=== PATIENT | male | born 1930 | race Caucasian/White ===

== ENCOUNTER 2017-01-06 21:08 | Inpatient (IN) | payer OTHER ==
[2017-01-06 22:32] LABS: BASOPHIL 0.5 % (0-2.0); EOSINOPHIL 1.7 % (0-4.5); MCH 31.3 pg (25.7-33.7); MCHC 32.9 g/dl (32.0-35.9); MEAN CELL VOLUME 95.2 fl (80-96); MEAN PLT VOLUME 8.5 fl (7.5-11.1); NEUTROPHILS 78.9 % (42.8-82.8); PLATELET COUNT 125 K/MM3 (134-434); RDW 15.2 % (11.9-15.9); WHITE BLOOD COUNT 10.5 K/mm3 (4.0-10.0)
[2017-01-06 23:00] LABS: ALBUMIN 3.6 g/dl (3.4-5.0); CALCIUM 8.7 mg/dL (8.5-10.1); CREATININE 1.5 mg/dL (0.7-1.3); MAGNESIUM 2.2 mg/dL (1.8-2.4)
[2017-01-06 23:05] LABS: BILIRUBIN,TOTAL 0.7 mg/dL (0.2-1.0); TOT PROT 6.8 g/dl (6.4-8.2); TROPONIN I 0.13 ng/ml (0.00-0.05)
[2017-01-06 23:14] LABS: INR 1.3 (0.82-1.09); PROTHROMBIN TIME (PATIENT) 14.4 SEC (9.98-11.88)
[2017-01-06 23:16] LABS: ACTIVATED PTT 33.1 SECONDS (26.9-34.4)
[2017-01-06] MEDS ORDERED: FUROSEMIDE 40 MG/4 ML INJECTABLE VIAL IVPB ONE (23:24)
--- NOTE | 2017-01-07 00:14 | PDOC ---
History of Present Illness - General History Source: Patient, Family, Old Records Exam Limitations: No Limitations <Colin Roth - Last Filed: 01/07/17 01:18> - General History Source: Patient, Family (Daughter ), Old Records Exam Limitations: No Limitations - History of Present Illness Initial Comments: 01/07/17 00:31 The patient is a 87 year old male brought via EMS from [facility] and presenting with his daughter, with a significant past medical history of AFIB, chronic renal insufficiency, dementia, HLD, HTN and CHF, who presents to the emergency department with shortness of breath and bilateral lower extremity swelling. The daughter notes that the symptoms have worsened over the last couple of days. The daughter also notes that the patient is compliant with is medications. The patient denies chest pain, headache and dizziness. Denies fever, chills, nausea, vomit, diarrhea and constipation. Denies dysuria, frequency, urgency and hematuria. Allergies: None Past surgical history: Hernia repair Social history: No alcohol, tobacco or drug use reported PMD - Dr. Julia Smith <Quirino Murray - Last Filed: 01/07/17 01:31> - General Chief Complaint: Shortness of Breath Stated Complaint: RESPIRATORY DISTRESS Time Seen by Provider: 01/06/17 21:20 Past History - Past Medical History Cardiac Disorders: Yes (afib) CHF: Yes Dementia: Yes Diabetes: Yes (? STATES IN PREVIOUS RECORD) HTN: Yes Hypercholesterolemia: Yes - Surgical History Appendectomy: Yes - Immunization History Immunization Up to Date: Yes - Psycho/Social/Smoking Cessation Hx Anxiety: Yes Suicidal Ideation: No Smoking History: Never smoked Have you smoked in the past 12 months: No Information on smoking cessation initiated: No Hx Alcohol Use: No Drug/Substance Use Hx: No Substance Use Type: None Hx Substance Use Treatment: No <Colin Roth - Last Filed: 01/07/17 01:18> <Quirino Murray - Last Filed: 01/07/17 01:31> - Past Medical History Allergies/Adverse Reactions: Allergies Allergy/AdvReac Type Severity Reaction Status Date / Time No Known Allergies Allergy Verified 01/06/17 21:25 Home Medications: Ambulatory Orders Apixaban [Eliquis] 2.5 mg PO BID 06/04/16 Atorvastatin Ca [Lipitor] 10 mg PO DAILY 06/04/16 Digoxin [Lanoxin -] 0.125 mg PO DAILY 06/04/16 Furosemide [Lasix -] 40 mg PO ASDIR 06/04/16 Furosemide [Lasix -] 80 mg PO ASDIR 06/04/16 Metoprolol Succinate [Toprol Xl -] 25 mg PO DAILY 06/04/16 Sertraline HCl [Zoloft -] 50 mg PO DAILY 06/04/16 Acetaminophen [Tylenol .Regular Strength -] 650 mg PO Q4H PRN #0 tablet Apixaban [Eliquis -] 2.5 mg PO BID tablet 06/07/16 Atorvastatin Ca [Lipitor] 10 mg PO HS tablet 06/07/16 Donepezil HCl [Aricept -] 5 mg PO DAILY tablet 06/07/16 Metoprolol Tartrate [Lopressor -] 25 mg PO BID tablet 06/07/16 Quetiapine Fumarate [Seroquel -] 12.5 mg PO DAILY tablet 06/07/16 Review of Systems - Review of Systems Able to Perform ROS?: Yes Comments:: 01/07/17 00:31 GENERAL/CONSTITUTIONAL: No fever or chills. No weakness. HEAD, EYES, EARS, NOSE AND THROAT: No change in vision. No ear pain or discharge. No sore throat. CARDIOVASCULAR: +Shortness of breath. No chest pain RESPIRATORY: No cough, wheezing, or hemoptysis. GASTROINTESTINAL: No nausea, vomiting, diarrhea or constipation. GENITOURINARY: No dysuria, frequency, or change in urination. MUSCULOSKELETAL: No joint or muscle swelling or pain. No neck or back pain. SKIN: No rash EXTREMITIES: +Bilateral lower extremity swelling. NEUROLOGIC: No headache, vertigo, loss of consciousness, or change in strength/ sensation. ENDOCRINE: No increased thirst. No abnormal weight change HEMATOLOGIC/LYMPHATIC: No anemia, easy bleeding, or history of blood clots. ALLERGIC/IMMUNOLOGIC: No hives or skin allergy. <Quirino Murray - Last Filed: 01/07/17 01:31> *Physical Exam - Vital Signs Last Vital Signs Temp Pulse Resp BP Pulse Ox 98.5 F 74 22 145/74 94 L 01/06/17 21:20 01/06/17 21:20 01/06/17 21:20 01/06/17 21:20 01/06/17 21:20 <Colin Roth - Last Filed: 01/07/17 01:18> - Vital Signs Last Vital Signs Temp Pulse Resp BP Pulse Ox 98.5 F 74 22 145/74 94 L 01/06/17 21:20 01/06/17 21:20 01/06/17 21:20 01/06/17 21:20 01/06/17 21:20 - Physical Exam Comments: 01/07/17 00:32 GENERAL: +Obese. Awake, alert, and fully oriented, in no acute distress HEAD: No signs of trauma, normocephalic, atraumatic EYES: PERRLA, EOMI, sclera anicteric, conjunctiva clear ENT: Auricles normal inspection, hearing grossly normal, nares patent, oropharynx clear without exudates. Moist mucosa NECK: Normal ROM, supple, no lymphadenopathy, JVD, or masses LUNGS: +Faint expiratory wheezing. No distress, speaks full sentences HEART: Regular rate and rhythm, normal S1 and S2, no murmurs, rubs or gallops, peripheral pulses normal and equal bilaterally. ABDOMEN: Soft, nontender, normoactive bowel sounds. No guarding, no rebound. No masses EXTREMITIES: 2+ peripheral edema bilaterally. Normal inspection, Normal range of motion. No clubbing or cyanosis. NEUROLOGICAL: Cranial nerves II through XII grossly intact. Normal speech, no focal sensorimotor deficits SKIN: Warm, Dry, normal turgor, no rashes or lesions noted. <Quirino Murray - Last Filed: 01/07/17 01:31> Heart Score/ECG Review #1 ECG reviewed & interpreted by me at: 01:20 01/07/17 01:17 atrial fibrillation 76, low voltage QRS, no std/anastacio, T wave flat II, III, aVF, aVL, QTC 434 msec <Colin Roth - Last Filed: 01/07/17 01:18> ED Treatment Course - LABORATORY CBC & Chemistry Diagram: 01/06/17 22:23 01/06/17 22:23 - ADDITIONAL ORDERS Additional order review: Laboratory Results 01/06/17 01/06/17 22:23 22:23 INR 1.30 H PTT (Actin FS) 33.1 Sodium 139 Potassium 4.3 Chloride 107 Carbon Dioxide 22 Anion Gap 10 BUN 37 H D Creatinine 1.5 H D Creat Clearance w eGFR 44.48 Random Glucose 107 H D Calcium 8.7 Magnesium 2.2 Total Bilirubin 0.7 D AST 29 D ALT 35 D Alkaline Phosphatase 173 H D Creatine Kinase 139 Troponin I 0.13 H D B-Natriuretic Peptide 71702.28 H Total Protein 6.8 Albumin 3.6 01/06/17 22:23 RBC 3.48 L MCV 95.2 MCHC 32.9 RDW 15.2 MPV 8.5 Neutrophils % 78.9 Lymphocytes % 8.2 D Monocytes % 10.7 H Eosinophils % 1.7 Basophils % 0.5 - RADIOLOGY Radiology Studies Ordered: Category Date Time Status CHEST X-RAY PORTABLE* [RAD] Stat Radiology 01/06/17 22:00 Completed DUPLEX VASCUL US-2LEGS [US] Stat Ultrasound 01/06/17 22:38 Ordered <Colin Roth - Last Filed: 01/07/17 01:18> - LABORATORY CBC & Chemistry Diagram: 01/06/17 22:23 01/06/17 22:23 - ADDITIONAL ORDERS Additional order review: Laboratory Results 01/06/17 01/06/17 22:23 22:23 INR 1.30 H PTT (Actin FS) 33.1 Sodium 139 Potassium 4.3 Chloride 107 Carbon Dioxide 22 Anion Gap 10 BUN 37 H D Creatinine 1.5 H D Creat Clearance w eGFR 44.48 Random Glucose 107 H D Calcium 8.7 Magnesium 2.2 Total Bilirubin 0.7 D AST 29 D ALT 35 D Alkaline Phosphatase 173 H D Creatine Kinase 139 Troponin I 0.13 H D B-Natriuretic Peptide 58275.28 H Total Protein 6.8 Albumin 3.6 01/06/17 22:23 RBC 3.48 L MCV 95.2 MCHC 32.9 RDW 15.2 MPV 8.5 Neutrophils % 78.9 Lymphocytes % 8.2 D Monocytes % 10.7 H Eosinophils % 1.7 Basophils % 0.5 - RADIOLOGY Radiograph Interpretation: 01/07/17 00:33 Chest X-Ray Reviewed by: Dr. Rajeev Mcneal Impression: Cardiomegaly and bilateral lower lobe consolidation. Bilatera lower extremities doppler Reviewed by: Dr. Franck Keys Impression: No DVT. <Quirino Murray - Last Filed: 01/07/17 01:31> Medical Decision Making - Medical Decision Making 01/07/17 00:05 A portion of this note was documented by scribe services under my direction. I have reviewed the details of the note, within reason, and agree with the documentation with the following case summary and management plan written by me. Patient treated in the ED. Nursing notes are reviewed and incorporated into the medical decision-making. Vital signs reviewed. Peripheral IV access obtained by the nurse, laboratory studies are drawn and sent, reviewed and interpreted by myself. Vital Signs Temp Pulse Resp BP Pulse Ox 98.5 F 74 22 145/74 94 L 01/06/17 21:20 01/06/17 21:20 01/06/17 21:20 01/06/17 21:20 01/06/17 21:20 87-year-old male with past medical history of dementia, hypertension, Atrial fibrillation on Eliquis, congestive heart failure, hypertension, hyperlipidemia , on digoxin, chronic renal insufficiency sent in from [facility] for increasing lower extremity edema and shortness of breath. The patient and the patient's daughter reports that the symptoms haven't worsened in the last several days. He reports adherence to his medications. Denies chest pain. He had noted increasing dyspnea on exertion and dyspnea. Patient was sent to the immersed department for further evaluation. Workup demonstrates findings likely consistent with congestive heart failure exacerbation. Patient is noted to have a chest x-ray with cardiomegaly and bilateral lower lobe consolidations. Blood work demonstrates an elevated BNP and a mildly elevated troponin, which is likely elevated in the setting of congestive heart failure. Patient has not endorsed chest pain. We'll need to give IV Lasix and admit the patient to the hospital for further evaluation. Dr. Smith was paged and awaiting response. 01/07/17 01:18 CBC, BMP 01/06/17 22:23 01/06/17 22:23 CMP Sodium 139 mmol/L (136-145) 01/06/17 22:23 Potassium 4.3 mmol/L (3.5-5.1) 01/06/17 22:23 Chloride 107 mmol/L (98-107) 01/06/17 22:23 Carbon Dioxide 22 mmol/L (21-32) 01/06/17 22:23 Anion Gap 10 (8-16) 01/06/17 22:23 BUN 37 mg/dL (7-18) H D 01/06/17 22:23 Creatinine 1.5 mg/dL (0.7-1.3) H D 01/06/17 22:23 Creat Clearance w eGFR 44.48 (>60) 01/06/17 22:23 Random Glucose 107 mg/dL (74-106) H D 01/06/17 22:23 Calcium 8.7 mg/dL (8.5-10.1) 01/06/17 22:23 Magnesium 2.2 mg/dL (1.8-2.4) 01/06/17 22:23 Total Bilirubin 0.7 mg/dL (0.2-1.0) D 01/06/17 22:23 AST 29 U/L (15-37) D 01/06/17 22:23 ALT 35 U/L (12-78) D 01/06/17 22:23 Alkaline Phosphatase 173 U/L (45-117) H D 01/06/17 22:23 Creatine Kinase 139 IU/L (39-308) 01/06/17 22:23 Troponin I 0.13 ng/ml (0.00-0.05) H D 01/06/17 22:23 B-Natriuretic Peptide 83522.28 pg/ml (5-450) H 01/06/17 22:23 Total Protein 6.8 g/dl (6.4-8.2) 01/06/17 22:23 Albumin 3.6 g/dl (3.4-5.0) 01/06/17 22:[address] Smith. He accepts patient to telemetry admission. Aspirin ordered. Case discussed in detail with admitting physician including history, physical exam and ancillary studies. Admitting physician has assumed care for the patient, will follow all pending diagnostics and will complete the evaluation and treatment. <Colin Roth - Last Filed: 01/07/17 01:18> - Medical Decision Making 01/07/17 00:33 Dr. Julia Smith was called regarding the patient at 11:32pm, 11:59pm and 12:25am Dr. Smith was consulted regarding the patient at 12:38am [phone] <Quirino Murray - Last Filed: 02/16/17 01:31> *DC/Admit/Observation/Transfer - Discharge Dispostion Admit: Yes <Colin Roth - Last Filed: 01/07/17 01:18> - Attestations Scribe Attestion: 01/07/17 00:32 Documentation prepared by Quirino Murray, acting as medical detailist for Colin Roth MD <Quirino Murray - Last Filed: 01/07/17 01:31> Diagnosis at time of Disposition: CHF (congestive heart failure) Qualifiers: Congestive heart failure type: unspecified congestive heart failure type Congestive heart failure chronicity: acute on chronic Qualified Code(s): I50.9 - Heart failure, unspecified - Discharge Dispostion Condition at time of disposition: Fair - Referrals Referrals: Julia Smith MD [Primary Care Provider] -
[2017-01-07] MEDS ORDERED: morphine CARPU-JECT 4 MG/1 ML DISP.SYRIN IVPUSH ONE (01:09)
[2017-01-07] MEDS ORDERED: FAMOTIDINE 20 MG/50 ML IVPB 50 ML IVPB ONE ×2 (01:09)
[2017-01-07] MEDS ORDERED: morphine CARPU-JECT 4 MG/1 ML DISP.SYRIN ONE (01:09)
[2017-01-07] MEDS ORDERED: ASPIRIN 81 MG CHEWABLE TABLETS PO ONE (01:19)
[2017-01-07] MEDS ORDERED: FUROSEMIDE 40 MG/4 ML INJECTABLE VIAL ONE (01:32)
[2017-01-07] MEDS ORDERED: ASPIRIN 81 MG CHEWABLE TABLETS ONE (02:22)
[2017-01-07] MEDS ORDERED: LORAZEPAM CARPU-JECT 2 MG/ML DISP.SYRIN IVPUSH ONE (03:05)
[2017-01-07] MEDS ORDERED: LORAZEPAM CARPU-JECT 2 MG/ML DISP.SYRIN ONE (03:07)
[2017-01-07] MEDS ORDERED: ACETAMINOPHEN 325 MG TABLET (FP) PO PRN (06:15)
[2017-01-07 08:57] LABS: BASOPHIL 0.8 % (0-2.0); EOSINOPHIL 1.8 % (0-4.5); MCH 30.8 pg (25.7-33.7); MCHC 32.4 g/dl (32.0-35.9); MEAN PLT VOLUME 8.4 fl (7.5-11.1); NEUTROPHILS 80.2 % (42.8-82.8); PLATELET COUNT 107 K/MM3 (134-434); WHITE BLOOD COUNT 10.5 K/mm3 (4.0-10.0)
[2017-01-07 09:25] LABS: CALCIUM 8.6 mg/dL (8.5-10.1); CREATININE 1.6 mg/dL (0.7-1.3)
[2017-01-07 09:31] LABS: TROPONIN I 0.16 ng/ml (0.00-0.05)
[2017-01-07 09:37] LABS: DIGOXIN LEVEL 0.3634 ng/ml (0.8-2.0); THYROID STIMULATING HORMONE 3.95 uIU/ml (0.358-3.74)
[2017-01-07] MEDS: METOPROLOL TARTRATE 25 MG TABLET (FP) PO SCH ×2 (12:00→22:24)
[2017-01-07] MEDS: QUEtiapine FUMARATE 25 MG TABLET (FP) PO SCH (12:00)
[2017-01-07] MEDS: SERTRALINE HCL 50 MG TABLET (FP) PO SCH (12:00)
[2017-01-07] MEDS: APIXABAN 2.5 MG TABLET PO SCH ×2 (12:00→22:24)
[2017-01-07] MEDS: DONEPEZIL HCL 5 MG TABLET (FP) PO SCH (12:00)
[2017-01-07] MEDS: DIGOXIN 0.125 MG TABLET (FP) PO SCH (12:00)
--- NOTE | 2017-01-07 13:18 | HP ---
Admitting History and Physical - Primary Care Physician PCP: Julia Smith - Admission Chief Complaint: leg edema and SOB History of Present Illness: The patient is a 87 year old male brought via EMS from [facility] and presenting with his daughter, with a significant past medical history of AFIB, chronic renal insufficiency, dementia, HLD, HTN and CHF, who presents to the emergency department with shortness of breath and bilateral lower extremity swelling. The daughter notes that the symptoms have worsened over the last couple of days. The daughter also notes that the patient is compliant with is medications. The patient denies chest pain, headache and dizziness. Denies fever, chills, nausea, vomit, diarrhea and constipation. Denies dysuria, frequency, urgency and hematuria. 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 Cardiovascular: Yes: AFIB (on eliquis), HTN, Hyperlipdemia, Murmur Pulmonary: Yes: COPD Renal/: Yes: Renal Inusuff (BUN/CR 30/1.7 in 01/06) Endocrine: Yes: Diabetes Mellitus - Past Surgical History Past Surgical History: Yes: Appendectomy, Hernia Repair (for incarceration in 2014) - Smoking History Smoking history: Never smoked Have you smoked in the past 12 months: No - Alcohol/Substance Use Hx Alcohol Use: No History of Substance Use: reports: None - Social History 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 - Allergies Allergies/Adverse Reactions: Allergies Allergy/AdvReac Type Severity Reaction Status Date / Time No Known Allergies Allergy Verified 01/06/17 21:25 - Home Medications Home Medications: Ambulatory Orders Apixaban [Eliquis] 2.5 mg PO BID 06/04/16 Atorvastatin Ca [Lipitor] 10 mg PO DAILY 06/04/16 Digoxin [Lanoxin -] 0.125 mg PO DAILY 06/04/16 Furosemide [Lasix -] 40 mg PO ASDIR 06/04/16 Furosemide [Lasix -] 80 mg PO ASDIR 06/04/16 Metoprolol Succinate [Toprol Xl -] 25 mg PO DAILY 06/04/16 Sertraline HCl [Zoloft -] 50 mg PO DAILY 06/04/16 Acetaminophen [Tylenol .Regular Strength -] 650 mg PO Q4H PRN #0 tablet Apixaban [Eliquis -] 2.5 mg PO BID tablet 06/07/16 Atorvastatin Ca [Lipitor] 10 mg PO HS tablet 06/07/16 Donepezil HCl [Aricept -] 5 mg PO DAILY tablet 06/07/16 Metoprolol Tartrate [Lopressor -] 25 mg PO BID tablet 06/07/16 Quetiapine Fumarate [Seroquel -] 12.5 mg PO DAILY tablet 06/07/16 Review of Systems - Review of Systems Eyes: reports: No Symptoms HENT: reports: No Symptoms Neck: reports: No Symptoms Cardiovascular: reports: No Symptoms Respiratory: reports: No Symptoms Physical Examination Vital Signs: Vital Signs Temperature 98.1 F 01/07/17 07:45 Pulse Rate 74 01/07/17 07:45 Respiratory Rate 18 01/07/17 07:45 Blood Pressure 144/89 01/07/17 07:45 O2 Sat by Pulse Oximetry (%) 97 01/07/17 07:45 Constitutional: Yes: Calm Cardiovascular: Yes: Pulse Irregular, S1, S2 Respiratory: Yes: Diminished (at bases), On Nasal O2 Gastrointestinal: Yes: Normal Bowel Sounds, Soft Edema: Yes Neurological: Yes: Alert, Oriented (to name) Labs: CBC, BMP 01/07/17 08:53 01/07/17 08:53 Imaging - Results Chest X-ray: Report Reviewed Cat Scan: Report Reviewed (bilateral pleural effsuion, vascular congestion) Problem List - Problems (1) (HFpEF) heart failure with preserved ejection fraction Assessment/Plan: echo iv lasix cardio eval daily weights monitor lytes check dig level BB Code(s): I50.9 - HEART FAILURE, UNSPECIFIED (2) A-fib Assessment/Plan: eliquis rate control Code(s): I48.91 - UNSPECIFIED ATRIAL FIBRILLATION (3) HLD (hyperlipidemia) Assessment/Plan: statin Code(s): E78.5 - HYPERLIPIDEMIA, UNSPECIFIED (4) HTN (hypertension) Assessment/Plan: bb Code(s): I10 - ESSENTIAL (PRIMARY) HYPERTENSION (5) Renal insufficiency Assessment/Plan: base line cr 1.4-1.6 Code(s): N28.9 - DISORDER OF KIDNEY AND URETER, UNSPECIFIED (6) Dementia Assessment/Plan: aricept seroquel Code(s): F03.90 - UNSPECIFIED DEMENTIA WITHOUT BEHAVIORAL DISTURBANCE
--- NOTE | 2017-01-07 13:27 | CON.CARD ---
Consult Consult Specialty:: Cardiology Referred by:: Dr. Smith Reason for Consultation:: Atrial fibrillation, CHF - History of Present Illness Chief Complaint: SOB, edema History of Present Illness: 87 yo male with dementia, chronic afib, CKD, HTN, and hyperlipidemia, who presented to ED from [facility] with reported dyspnea and leg edema per daughter's report over the past several days. However, the patient denies any symptoms but is not a reliable historian. Chest CT demonstrated large bilateral pleural effusions, diffuse pulmonary vascular congestion, and small pericardial effusions. ECG demonstrated atrial fibrillation with poor R wave progression. BNP 13,175 with Trops 0.13 -> 0.16. Started on IV furosemide in ED. 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 Cardio/Vascular: Yes: AFIB (on Eliquis), HTN, Hyperlipdemia, Murmur Pulmonary: Yes: COPD Renal/: Yes: Renal Inusuff (BUN/CR 30/1.7 in 01/06) Endocrine: Yes: Diabetes Mellitus - Past Surgical History Past Surgical History: Yes: Appendectomy, Hernia Repair (for incarceration in 2014) - Alcohol/Substance Use Hx Alcohol Use: No History of Substance Use: reports: None - Smoking History Smoking history: Never smoked Have you smoked in the past 12 months: No - Social History Usual Living Arrangement: With Spouse (but children live upstairs) 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 - Allergies Allergies/Adverse Reactions: Allergies Allergy/AdvReac Type Severity Reaction Status Date / Time No Known Allergies Allergy Verified 01/06/17 21:25 - Home Medications Home Medications: Ambulatory Orders Apixaban [Eliquis] 2.5 mg PO BID 06/04/16 Atorvastatin Ca [Lipitor] 10 mg PO DAILY 06/04/16 Digoxin [Lanoxin -] 0.125 mg PO DAILY 06/04/16 Furosemide [Lasix -] 40 mg PO ASDIR 06/04/16 Furosemide [Lasix -] 80 mg PO ASDIR 06/04/16 Metoprolol Succinate [Toprol Xl -] 25 mg PO DAILY 06/04/16 Sertraline HCl [Zoloft -] 50 mg PO DAILY 06/04/16 Acetaminophen [Tylenol .Regular Strength -] 650 mg PO Q4H PRN #0 tablet Apixaban [Eliquis -] 2.5 mg PO BID tablet 06/07/16 Atorvastatin Ca [Lipitor] 10 mg PO HS tablet 06/07/16 Donepezil HCl [Aricept -] 5 mg PO DAILY tablet 06/07/16 Metoprolol Tartrate [Lopressor -] 25 mg PO BID tablet 06/07/16 Quetiapine Fumarate [Seroquel -] 12.5 mg PO DAILY tablet 06/07/16 Family Disease History - Family Disease History Family History: Unable to Obtain (due to dementia) Review of Systems Unable to obtain ROS, reason: Limited due to dementia - Review of Systems Cardiovascular: denies: Chest Pain, Shortness of Breath Vital Signs: Vital Signs Temperature 98.1 F 01/07/17 07:45 Pulse Rate 74 01/07/17 07:45 Respiratory Rate 18 01/07/17 07:45 Blood Pressure 144/89 01/07/17 07:45 O2 Sat by Pulse Oximetry (%) 97 01/07/17 07:45 Constitutional: Yes: No Distress Eyes: Yes: Conjunctiva Clear, EOM Intact HENT: Yes: Atraumatic, Normocephalic Respiratory: Yes: Diminished (at bases bilaterally) Gastrointestinal: Yes: Normal Bowel Sounds, Soft. No: Tenderness Cardiovascular: Yes: Pulse Irregular JVD: Yes Carotid Bruit: No Heart Sounds: Yes: S1, S2 Murmur: No: Systolic Murmur Edema: Yes Edema: LLE: 1+, RLE: 1+ Peripheral Pulses WNL: Yes - Other Data Labs, Other Data: CBC, BMP 01/07/17 08:53 01/07/17 08:53 INR, PTT INR 1.30 (0.82-1.09) H 01/06/17 22:23 Troponin, BNP 01/07/17 08:53 Troponin I 0.16 H Troponin, BNP 01/07/17 08:53 Troponin I 0.16 H Echo: Report Reviewed (01/07/17: Normal LV size and systolic function. Mild conc LVH. Mod LAE. Mild MR. Severe TR. Pulm HTN with PASP 50-60 mmHg. Mild AR. Mild CA. Small pericardial effusion of no hemodynamic significance.), Image Reviewed Imaging - Results Cat Scan: Report Reviewed (01/07/[address]: Diffuse pulmonary vascular congestion with large bilateral pleural effusions and atelectatic changes in both lower lobes) Assessment/Plan 87 yo male with dementia, chronic afib, CKD, HTN, and hyperlipidemia, who is being admitted with acute diastolic CHF. Chest CT demonstrated large bilateral pleural effusions, diffuse pulmonary vascular congestion, and small pericardial effusions. ECG demonstrated atrial fibrillation with poor R wave progression. BNP 13,175 Trops 0.13 -> 0.16, which is likely due to CHF Echocardiogram today demonstrates normal LV size and systolic function, mild LVH , mod LAE, mild MR, mild AR, severe TR with RVSP 50-60 mmHg, mild CA, and small pericardial effusion of no hemodynamic significance. RECS: Admit to telemetry Continue furosemide 40 mg IV bid for diuresis Monitor lytes and renal function with diuresis Continue metoprolol tartrate 25 mg po bid and digoxin for afib rate control Continue Eliquis for afib thrombembolic prophylaxis Will follow. Call with questions. Further recs as per primary team
[2017-01-07] MEDS: FUROSEMIDE 40 MG/4 ML INJECTABLE VIAL IVPUSH SCH (13:36)
--- NOTE | 2017-01-07 16:03 | EKG ---
Test Reason : Blood Pressure : / mmHG Vent. Rate : 067 BPM Atrial Rate : 241 BPM P-R Int : 000 ms QRS Dur : 094 ms QT Int : 422 ms P-R-T Axes : 000 064 229 degrees QTc Int : 445 ms ATRIAL FIBRILLATION LOW VOLTAGE QRS INCOMPLETE RIGHT BUNDLE BRANCH BLOCK CANNOT RULE OUT ANTERIOR INFARCT , AGE UNDETERMINED ABNORMAL ECG WHEN COMPARED WITH ECG OF 05-JUN-2016 08:43, NONSPECIFIC T WAVE ABNORMALITY NOW EVIDENT IN INFERIOR LEADS Confirmed by STEVEN PEREZ MD ([id number]) on 01/07/2017 4:03:01 PM Referred By: ERIC FLETCHER Confirmed By:STEVEN PEREZ MD
--- NOTE | 2017-01-07 16:06 | EKG ---
Test Reason : Blood Pressure : / mmHG Vent. Rate : 076 BPM Atrial Rate : 060 BPM P-R Int : 000 ms QRS Dur : 086 ms QT Int : 386 ms P-R-T Axes : 000 049 046 degrees QTc Int : 434 ms POOR DATA QUALITY, INTERPRETATION MAY BE ADVERSELY AFFECTED ATRIAL FIBRILLATION LOW VOLTAGE QRS CANNOT RULE OUT ANTERIOR INFARCT , AGE UNDETERMINED ABNORMAL ECG WHEN COMPARED WITH ECG OF 05-JUN-2016 08:43, NONSPECIFIC T WAVE ABNORMALITY NOW EVIDENT IN INFERIOR LEADS NONSPECIFIC T WAVE ABNORMALITY NOW EVIDENT IN LATERAL LEADS Confirmed by STEVEN PEREZ MD ([id number]) on 01/07/2017 4:06:09 PM Referred By: Confirmed By:STEVEN PEREZ MD
[2017-01-07 18:46] VITALS: BMI 31.7
[2017-01-07] MEDS: ATORVASTATIN CA 10 MG TABLET (FP) PO SCH (22:24)
[2017-01-08] MEDS: FUROSEMIDE 40 MG/4 ML INJECTABLE VIAL IVPUSH SCH ×2 (05:58→15:16)
[2017-01-08 08:23] LABS: BASOPHIL 0.5 % (0-2.0); EOSINOPHIL 1.6 % (0-4.5); MCH 31.3 pg (25.7-33.7); MCHC 33.3 g/dl (32.0-35.9); MEAN CELL VOLUME 93.9 fl (80-96); MEAN PLT VOLUME 8.5 fl (7.5-11.1); NEUTROPHILS 85.1 % (42.8-82.8); PLATELET COUNT 112 K/MM3 (134-434); RDW 14.6 % (11.9-15.9); WHITE BLOOD COUNT 9.6 K/mm3 (4.0-10.0)
--- NOTE | 2017-01-08 08:35 | PN ---
Progress Note, Physician - Current Medication List Current Medications: Active Medications Acetaminophen (Tylenol -) 650 mg PO Q4H PRN PRN Reason: FEVER OR PAIN Last Admin: 01/07/17 15:53 Dose: 650 mg Apixaban (Eliquis -) 2.5 mg PO BID [facility] Last Admin: 01/07/17 22:24 Dose: 2.5 mg Atorvastatin Calcium (Lipitor -) 10 mg PO HS [facility] Last Admin: 01/07/17 22:24 Dose: 10 mg Digoxin (Lanoxin -) 0.125 mg PO DAILY [facility] Last Admin: 01/07/17 12:00 Dose: 0.125 mg Donepezil HCl (Aricept -) 5 mg PO DAILY [facility] Last Admin: 01/07/17 12:00 Dose: 5 mg Furosemide (Lasix Injection -) 40 mg IVPUSH BID@0600,1400 [facility] Last Admin: 01/08/17 05:58 Dose: 40 mg Metoprolol Tartrate (Lopressor -) 25 mg PO BID [facility] Last Admin: 01/07/17 22:24 Dose: 25 mg Quetiapine Fumarate (Seroquel -) 12.5 mg PO DAILY [facility] Last Admin: 01/07/17 12:00 Dose: 12.5 mg Sertraline HCl (Zoloft -) 50 mg PO DAILY [facility] Last Admin: 01/07/17 12:00 Dose: 50 mg - Objective Vital Signs: Vital Signs Temperature 97.8 F 01/08/17 02:23 Pulse Rate 71 01/08/17 05:59 Respiratory Rate 20 01/08/17 05:59 Blood Pressure 173/92 01/08/17 05:59 O2 Sat by Pulse Oximetry (%) 95 01/07/17 21:00 Cardiovascular: Yes: Murmur, S1, S2 Respiratory: Yes: Diminished, Rales Gastrointestinal: Yes: Normal Bowel Sounds, Soft Labs: INR, PTT INR 1.30 (0.82-1.09) H 01/06/17 22:23 Assessment/Plan - Problems (1) (HFpEF) heart failure with preserved ejection fraction Assessment/Plan: echo iv lasix cardio eval daily weights monitor lytes check dig level BB Code(s): I50.9 - HEART FAILURE, UNSPECIFIED (2) A-fib Assessment/Plan: eliquis rate control Code(s): I48.91 - UNSPECIFIED ATRIAL FIBRILLATION (3) HLD (hyperlipidemia) Assessment/Plan: statin Code(s): E78.5 - HYPERLIPIDEMIA, UNSPECIFIED (4) HTN (hypertension) Assessment/Plan: bb Code(s): I10 - ESSENTIAL (PRIMARY) HYPERTENSION (5) Renal insufficiency Assessment/Plan: base line cr 1.4-1.6 Code(s): N28.9 - DISORDER OF KIDNEY AND URETER, UNSPECIFIED (6) Dementia Assessment/Plan: aricept seroquel Code(s): F03.90 - UNSPECIFIED DEMENTIA WITHOUT BEHAVIORAL DISTURBANCE
[2017-01-08 08:37] LABS: FERRITIN 86.463 ng/ml (16.4-293.9); FREE T4 1.27 ng/dl (0.76-1.16)
[2017-01-08 08:41] LABS: ALBUMIN 3.5 g/dl (3.4-5.0)
[2017-01-08 08:55] LABS: BILIRUBIN,TOTAL 0.8 mg/dL (0.2-1.0); CALCIUM 8.5 mg/dL (8.5-10.1); CREATININE 1.7 mg/dL (0.7-1.3); DIGOXIN LEVEL 0.497 ng/ml (0.8-2.0); THYROID STIMULATING HORMONE 1.58 uIU/ml (0.358-3.74); TOT PROT 6.7 g/dl (6.4-8.2)
[2017-01-08 11:12] LABS: URINE APPEARANCE CLEAR; URINE BILIRUBIN NEGATIVE (NEGATIVE); URINE COLOR COLORLESS; URINE GLUCOSE (UA) NEGATIVE (NEGATIVE); URINE KETONE NEGATIVE (NEGATIVE); URINE LEUK ESTERASE NEGATIVE (NEGATIVE); URINE NITRITE NEGATIVE (NEGATIVE); URINE PROTEIN NEGATIVE (NEGATIVE); URINE UROBILINOGEN NEGATIVE E.U./dl (0.2-1.0)
[2017-01-08 11:20] LABS: URINE BLOOD 3+ (NEGATIVE)
[2017-01-08] MEDS: METOPROLOL TARTRATE 25 MG TABLET (FP) PO SCH ×2 (11:37→21:32)
[2017-01-08] MEDS: DIGOXIN 0.125 MG TABLET (FP) PO SCH (11:37)
[2017-01-08] MEDS: APIXABAN 2.5 MG TABLET PO SCH ×2 (11:37→21:32)
[2017-01-08 11:38] LABS: URINE RBC 488 /hpf (0-3)
[2017-01-08] MEDS: QUEtiapine FUMARATE 25 MG TABLET (FP) PO SCH (11:38)
[2017-01-08] MEDS: SERTRALINE HCL 50 MG TABLET (FP) PO SCH (11:38)
[2017-01-08] MEDS: DONEPEZIL HCL 5 MG TABLET (FP) PO SCH (11:38)
--- NOTE | 2017-01-08 16:01 | PN ---
Progress Note, Physician History of Present Illness: No new complaints - Current Medication List Current Medications: Active Medications Acetaminophen (Tylenol -) 650 mg PO Q4H PRN PRN Reason: FEVER OR PAIN Last Admin: 01/07/17 15:53 Dose: 650 mg Apixaban (Eliquis -) 2.5 mg PO BID [facility] Last Admin: 01/08/17 11:37 Dose: 2.5 mg Atorvastatin Calcium (Lipitor -) 10 mg PO HS [facility] Last Admin: 01/07/17 22:24 Dose: 10 mg Digoxin (Lanoxin -) 0.125 mg PO DAILY [facility] Last Admin: 01/08/17 11:37 Dose: 0.125 mg Donepezil HCl (Aricept -) 5 mg PO DAILY [facility] Last Admin: 01/08/17 11:38 Dose: 5 mg Furosemide (Lasix Injection -) 40 mg IVPUSH BID@0600,1400 [facility] Last Admin: 01/08/17 15:16 Dose: 40 mg Metoprolol Tartrate (Lopressor -) 25 mg PO BID [facility] Last Admin: 01/08/17 11:37 Dose: 25 mg Quetiapine Fumarate (Seroquel -) 12.5 mg PO DAILY [facility] Last Admin: 01/08/17 11:38 Dose: 12.5 mg Sertraline HCl (Zoloft -) 50 mg PO DAILY [facility] Last Admin: 01/08/17 11:38 Dose: 50 mg - Objective Vital Signs: Vital Signs Temperature 97.8 F 01/08/17 02:23 Pulse Rate 66 01/08/17 14:00 Respiratory Rate 20 01/08/17 14:00 Blood Pressure 124/61 01/08/17 14:00 O2 Sat by Pulse Oximetry (%) 94 L 01/08/17 08:00 Constitutional: Yes: No Distress (but in [place]) Eyes: Yes: Conjunctiva Clear HENT: Yes: Atraumatic Neck: Yes: Supple Cardiovascular: Yes: Pulse Irregular Respiratory: Yes: CTA Bilaterally (anteriorly) Gastrointestinal: Yes: Normal Bowel Sounds, Soft Edema: Yes (trace) Peripheral Pulses WNL: Yes Neurological: Yes: Confusion Labs: CBC, BMP 01/08/17 06:10 01/08/17 06:10 INR, PTT INR 1.30 (0.82-1.09) H 01/06/17 22:23 - ....Imaging Other: Other (tele -. controlled rate) Assessment/Plan 7 yo male with dementia, chronic afib, CKD, HTN, and hyperlipidemia, who is being admitted with acute diastolic CHF. Chest CT demonstrated large bilateral pleural effusions, diffuse pulmonary vascular congestion, and small pericardial effusions. ECG demonstrated atrial fibrillation with poor R wave progression. BNP 13,175 Trops 0.13 -> 0.16, which is likely due to CHF Echocardiogram 01/07/17 demonstrates normal LV size and systolic function, mild LVH, mod LAE, mild MR, mild AR, severe TR with RVSP 50-60 mmHg, mild LA, and small pericardial effusion of no hemodynamic significance. Diuresing well RECS: Admit to telemetry Continue furosemide 40 mg IV bid for diuresis -. CXR in AM -. switch to Po as indicated Monitor lytes and renal function Continue metoprolol tartrate 25 mg po bid and digoxin for afib rate control Continue Eliquis for afib thrombembolic prophylaxis Further recs as per primary team
[2017-01-08] MEDS: ATORVASTATIN CA 10 MG TABLET (FP) PO SCH (21:32)
[2017-01-09] MEDS: FUROSEMIDE 40 MG/4 ML INJECTABLE VIAL IVPUSH SCH (06:39)
[2017-01-09 08:07] LABS: SERUM IRON 30 ug/dL (38-169); TOTAL IRON BINDING CAPACITY 287 ug/dL (250-450); UIBC 257 ug/dL (111-343)
[2017-01-09] MEDS: SERTRALINE HCL 50 MG TABLET (FP) PO SCH (08:59)
[2017-01-09] MEDS: DONEPEZIL HCL 5 MG TABLET (FP) PO SCH (08:59)
[2017-01-09] MEDS: METOPROLOL TARTRATE 25 MG TABLET (FP) PO SCH (08:59)
[2017-01-09] MEDS: APIXABAN 2.5 MG TABLET PO SCH ×2 (08:59→21:32)
[2017-01-09] MEDS: DIGOXIN 0.125 MG TABLET (FP) PO SCH (08:59)
[2017-01-09] MEDS: QUEtiapine FUMARATE 25 MG TABLET (FP) PO SCH (09:00)
--- NOTE | 2017-01-09 10:12 | PN ---
Progress Note, Physician - Current Medication List Current Medications: Active Medications Acetaminophen (Tylenol -) 650 mg PO Q4H PRN PRN Reason: FEVER OR PAIN Last Admin: 01/07/17 15:53 Dose: 650 mg Apixaban (Eliquis -) 2.5 mg PO BID [facility] Last Admin: 01/09/17 08:59 Dose: 2.5 mg Atorvastatin Calcium (Lipitor -) 10 mg PO HS [facility] Last Admin: 01/08/17 21:32 Dose: 10 mg Digoxin (Lanoxin -) 0.125 mg PO DAILY [facility] Last Admin: 01/09/17 08:59 Dose: 0.125 mg Donepezil HCl (Aricept -) 5 mg PO DAILY [facility] Last Admin: 01/09/17 08:59 Dose: 5 mg Furosemide (Lasix Injection -) 40 mg IVPUSH BID@0600,1400 [facility] Last Admin: 01/09/17 06:39 Dose: 40 mg Metoprolol Tartrate (Lopressor -) 25 mg PO BID [facility] Last Admin: 01/09/17 08:59 Dose: 25 mg Quetiapine Fumarate (Seroquel -) 12.5 mg PO DAILY [facility] Last Admin: 01/09/17 09:00 Dose: 12.5 mg Sertraline HCl (Zoloft -) 50 mg PO DAILY [facility] Last Admin: 01/09/17 08:59 Dose: 50 mg - Objective Vital Signs: Vital Signs Temperature 98.4 F 01/09/17 08:37 Pulse Rate 78 01/09/17 08:59 Respiratory Rate 18 01/09/17 08:37 Blood Pressure 172/102 01/09/17 08:37 O2 Sat by Pulse Oximetry (%) 96 01/08/17 21:00 Cardiovascular: Yes: WNL Respiratory: Yes: WNL Gastrointestinal: Yes: WNL Labs: CBC, BMP 01/08/17 06:10 01/08/17 06:10 INR, PTT INR 1.30 (0.82-1.09) H 01/06/17 22:23 Problem List - Problems (1) CHF (congestive heart failure) Code(s): I50.9 - HEART FAILURE, UNSPECIFIED Qualifiers: Congestive heart failure type: unspecified congestive heart failure type Congestive heart failure chronicity: acute on chronic Qualified Code(s): I50.9 - Heart failure, unspecified (2) (HFpEF) heart failure with preserved ejection fraction Code(s): I50.9 - HEART FAILURE, UNSPECIFIED (3) A-fib Code(s): I48.91 - UNSPECIFIED ATRIAL FIBRILLATION (4) Acute kidney injury Code(s): N17.9 - ACUTE KIDNEY FAILURE, UNSPECIFIED (5) HTN (hypertension) Code(s): I10 - ESSENTIAL (PRIMARY) HYPERTENSION Assessment/Plan (1) (HFpEF) heart failure with preserved ejection fraction Assessment/Plan: echo iv lasix cardio eval daily weights monitor lytes check dig level -> 0.5 BB Code(s): I50.9 - HEART FAILURE, UNSPECIFIED (2) A-fib Assessment/Plan: eliquis rate control -> hr 78 Code(s): I48.91 - UNSPECIFIED ATRIAL FIBRILLATION (3) HLD (hyperlipidemia) Assessment/Plan: statin Code(s): E78.5 - HYPERLIPIDEMIA, UNSPECIFIED (4) HTN (hypertension) Assessment/Plan: bb - norvasc 5 Code(s): I10 - ESSENTIAL (PRIMARY) HYPERTENSION (5) Renal insufficiency Assessment/Plan: base line cr 1.4-1.6 monitor Code(s): N28.9 - DISORDER OF KIDNEY AND URETER, UNSPECIFIED (6) Dementia Assessment/Plan: aricept seroquel Code(s): F03.90 - UNSPECIFIED DEMENTIA WITHOUT BEHAVIORAL DISTURBANCE DISCHARGE PLANNING F/U BP [employer] FM
[2017-01-09] MEDS ORDERED: amLODIPine BESYLATE 5 MG TABLET (FP) PO SCH (10:15)
--- NOTE | 2017-01-09 13:35 | PN ---
Progress Note, Physician History of Present Illness: No events overnight. - Current Medication List Current Medications: Active Medications Acetaminophen (Tylenol -) 650 mg PO Q4H PRN PRN Reason: FEVER OR PAIN Last Admin: 01/07/17 15:53 Dose: 650 mg Amlodipine Besylate (Norvasc -) 10 mg PO DAILY [facility] Apixaban (Eliquis -) 2.5 mg PO BID [facility] Last Admin: 01/09/17 08:59 Dose: 2.5 mg Atorvastatin Calcium (Lipitor -) 10 mg PO HS [facility] Last Admin: 01/08/17 21:32 Dose: 10 mg Carvedilol (Coreg -) 6.25 mg PO BID [facility] Digoxin (Lanoxin -) 0.125 mg PO DAILY [facility] Last Admin: 01/09/17 08:59 Dose: 0.125 mg Donepezil HCl (Aricept -) 5 mg PO DAILY [facility] Last Admin: 01/09/17 08:59 Dose: 5 mg Furosemide (Lasix -) 40 mg PO DAILY [facility] Quetiapine Fumarate (Seroquel -) 12.5 mg PO DAILY [facility] Last Admin: 01/09/17 09:00 Dose: 12.5 mg Sertraline HCl (Zoloft -) 50 mg PO DAILY [facility] Last Admin: 01/09/17 08:59 Dose: 50 mg - Objective Vital Signs: Vital Signs Temperature 98.4 F 01/09/17 08:37 Pulse Rate 78 01/09/17 08:59 Respiratory Rate 18 01/09/17 08:37 Blood Pressure 172/102 01/09/17 08:37 O2 Sat by Pulse Oximetry (%) 96 01/08/17 21:00 Constitutional: Yes: No Distress HENT: Yes: Atraumatic, Normocephalic Cardiovascular: Yes: Pulse Irregular. No: JVD Respiratory: Yes: CTA Bilaterally Gastrointestinal: Yes: Normal Bowel Sounds, Soft. No: Tenderness Edema: No Labs: CBC, BMP 01/08/17 06:10 01/08/17 06:10 INR, PTT INR 1.30 (0.82-1.09) H 01/06/17 22:23 Assessment/Plan 87 yo male with dementia, chronic afib, CKD, HTN, and hyperlipidemia, who is being admitted with acute diastolic CHF. Chest CT demonstrated large bilateral pleural effusions, diffuse pulmonary vascular congestion, and small pericardial effusions. ECG demonstrated atrial fibrillation with poor R wave progression. BNP 13,175 Trops 0.13 -> 0.16, which is likely due to CHF Echocardiogram 01/07/17 demonstrated normal LV size and systolic function, mild LVH, mod LAE, mild MR, mild AR, severe TR with RVSP 50-60 mmHg, mild RI, and small pericardial effusion of no hemodynamic significance. Patient appears euvolemic currently. Cr rising with continued IV diuretics. RECS: Will change furosemide to 40 mg po daily. Monitor lytes and renal function Will change metoprolol to carvedilol 6.25 mg po bid for better BP control, and will continue digoxin for afib rate control Continue Eliquis for afib thrombembolic prophylaxis Will follow. Call with questions. Further recs and discharge planning as per primary team
[2017-01-09] MEDS: ATORVASTATIN CA 10 MG TABLET (FP) PO SCH (21:31)
[2017-01-09] MEDS: CARVEDILOL 6.25 MG TABLET (FP) PO SCH (21:32)
[2017-01-10 08:25] LABS: BASOPHIL 0.6 % (0-2.0); EOSINOPHIL 2.4 % (0-4.5); MCH 30.8 pg (25.7-33.7); MCHC 32.6 g/dl (32.0-35.9); MEAN CELL VOLUME 94.4 fl (80-96); MEAN PLT VOLUME 8.5 fl (7.5-11.1); NEUTROPHILS 79.7 % (42.8-82.8); PLATELET COUNT 114 K/MM3 (134-434); RDW 14.6 % (11.9-15.9); WHITE BLOOD COUNT 10.1 K/mm3 (4.0-10.0)
--- NOTE | 2017-01-10 08:33 | PN ---
Progress Note, Physician - Current Medication List Current Medications: Active Medications Acetaminophen (Tylenol -) 650 mg PO Q4H PRN PRN Reason: FEVER OR PAIN Last Admin: 01/07/17 15:53 Dose: 650 mg Amlodipine Besylate (Norvasc -) 10 mg PO DAILY [facility] Apixaban (Eliquis -) 2.5 mg PO BID [facility] Last Admin: 01/09/17 21:32 Dose: 2.5 mg Atorvastatin Calcium (Lipitor -) 10 mg PO HS [facility] Last Admin: 01/09/17 21:31 Dose: 10 mg Carvedilol (Coreg -) 6.25 mg PO BID [facility] Last Admin: 01/09/17 21:32 Dose: 6.25 mg Digoxin (Lanoxin -) 0.125 mg PO DAILY [facility] Last Admin: 01/09/17 08:59 Dose: 0.125 mg Donepezil HCl (Aricept -) 5 mg PO DAILY [facility] Last Admin: 01/09/17 08:59 Dose: 5 mg Furosemide (Lasix -) 40 mg PO DAILY [facility] Quetiapine Fumarate (Seroquel -) 12.5 mg PO DAILY [facility] Last Admin: 01/09/17 09:00 Dose: 12.5 mg Sertraline HCl (Zoloft -) 50 mg PO DAILY [facility] Last Admin: 01/09/17 08:59 Dose: 50 mg - Objective Vital Signs: Vital Signs Temperature 97.9 F 01/10/17 02:00 Pulse Rate 64 01/10/17 06:00 Respiratory Rate 20 01/10/17 06:00 Blood Pressure 154/70 01/10/17 06:00 O2 Sat by Pulse Oximetry (%) 98 01/09/17 21:00 Cardiovascular: Yes: WNL Respiratory: Yes: WNL Gastrointestinal: Yes: WNL Edema: No Labs: CBC, BMP 01/10/17 05:45 INR, PTT INR 1.30 (0.82-1.09) H 01/06/17 22:23 Problem List - Problems (1) CHF (congestive heart failure) Code(s): I50.9 - HEART FAILURE, UNSPECIFIED Qualifiers: Congestive heart failure type: unspecified congestive heart failure type Congestive heart failure chronicity: acute on chronic Qualified Code(s ): I50.9 - Heart failure, unspecified (2) (HFpEF) heart failure with preserved ejection fraction Code(s): I50.9 - HEART FAILURE, UNSPECIFIED (3) A-fib Code(s): I48.91 - UNSPECIFIED ATRIAL FIBRILLATION (4) Acute kidney injury Code(s): N17.9 - ACUTE KIDNEY FAILURE, UNSPECIFIED (5) HTN (hypertension) Code(s): I10 - ESSENTIAL (PRIMARY) HYPERTENSION Assessment/Plan (1) (HFpEF) heart failure with preserved ejection fraction Assessment/Plan: repeat cxr worse iv lasix -> po cardio eval noted daily weights monitor lytes check dig level -> 0.5 BB Code(s): I50.9 - HEART FAILURE, UNSPECIFIED (2) A-fib Assessment/Plan: eliquis rate control Code(s): I48.91 - UNSPECIFIED ATRIAL FIBRILLATION (3) HLD (hyperlipidemia) Assessment/Plan: statin Code(s): E78.5 - HYPERLIPIDEMIA, UNSPECIFIED (4) HTN (hypertension) Assessment/Plan: bb norvasc 5 Code(s): I10 - ESSENTIAL (PRIMARY) HYPERTENSION (5) Renal insufficiency Assessment/Plan: base line cr 1.4-1.6 getting worse monitor on po lasix Code(s): N28.9 - DISORDER OF KIDNEY AND URETER, UNSPECIFIED (6) Dementia Assessment/Plan: aricept seroquel Code(s): F03.90 - UNSPECIFIED DEMENTIA WITHOUT BEHAVIORAL DISTURBANCE 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
[2017-01-10 09:08] LABS: ALBUMIN 3.2 g/dl (3.4-5.0); BILIRUBIN,TOTAL 0.7 mg/dL (0.2-1.0); CALCIUM 8.8 mg/dL (8.5-10.1); CREATININE 1.5 mg/dL (0.7-1.3); TOT PROT 6.4 g/dl (6.4-8.2)
--- NOTE | 2017-01-10 09:20 | PN ---
Progress Note, Physician History of Present Illness: No events overnight. - Current Medication List Current Medications: Active Medications Acetaminophen (Tylenol -) 650 mg PO Q4H PRN PRN Reason: FEVER OR PAIN Last Admin: 01/07/17 15:53 Dose: 650 mg Amlodipine Besylate (Norvasc -) 10 mg PO DAILY [facility] Apixaban (Eliquis -) 2.5 mg PO BID [facility] Last Admin: 01/09/17 21:32 Dose: 2.5 mg Atorvastatin Calcium (Lipitor -) 10 mg PO HS [facility] Last Admin: 01/09/17 21:31 Dose: 10 mg Carvedilol (Coreg -) 6.25 mg PO BID [facility] Last Admin: 01/09/17 21:32 Dose: 6.25 mg Digoxin (Lanoxin -) 0.125 mg PO DAILY [facility] Last Admin: 01/09/17 08:59 Dose: 0.125 mg Donepezil HCl (Aricept -) 5 mg PO DAILY [facility] Last Admin: 01/09/17 08:59 Dose: 5 mg Furosemide (Lasix -) 40 mg PO DAILY [facility] Quetiapine Fumarate (Seroquel -) 12.5 mg PO DAILY [facility] Last Admin: 01/09/17 09:00 Dose: 12.5 mg Sertraline HCl (Zoloft -) 50 mg PO DAILY [facility] Last Admin: 01/09/17 08:59 Dose: 50 mg - Objective Vital Signs: Vital Signs Temperature 97.9 F 01/10/17 02:00 Pulse Rate 64 01/10/17 06:00 Respiratory Rate 20 01/10/17 06:00 Blood Pressure 154/70 01/10/17 06:00 O2 Sat by Pulse Oximetry (%) 98 01/09/17 21:00 Constitutional: Yes: No Distress HENT: Yes: Atraumatic, Normocephalic Cardiovascular: Yes: Pulse Irregular. No: JVD Respiratory: Yes: CTA Bilaterally Gastrointestinal: Yes: Normal Bowel Sounds, Soft. No: Tenderness Edema: No Labs: CBC, BMP 01/10/17 05:45 01/10/17 05:45 INR, PTT INR 1.30 (0.82-1.09) H 01/06/17 22:23 Assessment/Plan 87 yo male with dementia, chronic afib, CKD, HTN, and hyperlipidemia, who is being admitted with acute diastolic CHF. Chest CT demonstrated large bilateral pleural effusions, diffuse pulmonary vascular congestion, and small pericardial effusions. ECG demonstrated atrial fibrillation with poor R wave progression. BNP 13,175 Trops 0.13 -> 0.16, which is likely due to CHF Echocardiogram 01/07/17 demonstrated normal LV size and systolic function, mild LVH, mod LAE, mild MR, mild AR, severe TR with RVSP 50-60 mmHg, mild VT, and small pericardial effusion of no hemodynamic significance. Patient appears euvolemic currently. RECS: Today patient to start furosemide to 40 mg po daily. Monitor lytes and renal function Continue carvedilol 6.25 mg po bid for better BP control, and will continue digoxin for afib rate control Continue Eliquis for afib thrombembolic prophylaxis Will follow. Call with questions. Further recs and discharge planning as per primary team
[2017-01-10] MEDS ORDERED: FUROSEMIDE 40 MG/4 ML INJECTABLE VIAL IVPUSH SCH (10:00)
[2017-01-10] MEDS: QUEtiapine FUMARATE 25 MG TABLET (FP) PO SCH (10:16)
[2017-01-10] MEDS: DIGOXIN 0.125 MG TABLET (FP) PO SCH (10:16)
[2017-01-10] MEDS: SERTRALINE HCL 50 MG TABLET (FP) PO SCH (10:16)
[2017-01-10] MEDS: CARVEDILOL 6.25 MG TABLET (FP) PO SCH ×2 (10:16→22:05)
[2017-01-10] MEDS: DONEPEZIL HCL 5 MG TABLET (FP) PO SCH (10:17)
[2017-01-10] MEDS: FUROSEMIDE 40 MG TABLET (FP) PO SCH (10:17)
[2017-01-10] MEDS: amLODIPine BESYLATE 10 MG TABLET (FP) PO SCH (10:17)
[2017-01-10] MEDS: APIXABAN 2.5 MG TABLET PO SCH ×2 (10:17→22:05)
[2017-01-10] MEDS: ATORVASTATIN CA 10 MG TABLET (FP) PO SCH (22:05)
[2017-01-11 07:26] LABS: BASOPHIL 0.7 % (0-2.0); EOSINOPHIL 3.3 % (0-4.5); MCHC 33.1 g/dl (32.0-35.9); MEAN CELL VOLUME 93.9 fl (80-96); MEAN PLT VOLUME 8.1 fl (7.5-11.1); NEUTROPHILS 77.5 % (42.8-82.8); PLATELET COUNT 129 K/MM3 (134-434); RDW 14.5 % (11.9-15.9)
[2017-01-11 07:50] LABS: ALBUMIN 3.3 g/dl (3.4-5.0); BILIRUBIN,TOTAL 0.8 mg/dL (0.2-1.0); CALCIUM 8.6 mg/dL (8.5-10.1); CREATININE 1.6 mg/dL (0.7-1.3); TOT PROT 6.4 g/dl (6.4-8.2)
--- NOTE | 2017-01-11 08:21 | DS ---
Physical Examination Vital Signs: Vital Signs Temperature 98.8 F 01/11/17 06:00 Pulse Rate 61 01/11/17 06:00 Respiratory Rate 18 01/11/17 06:00 Blood Pressure 126/67 01/11/17 06:00 O2 Sat by Pulse Oximetry (%) 96 01/10/17 21:00 Cardiovascular: Yes: Regular Rate and Rhythm Respiratory: Yes: Regular, CTA Bilaterally Gastrointestinal: Yes: Normal Bowel Sounds, Soft Labs: CBC, BMP 01/11/17 05:35 01/11/17 05:35 Discharge Summary Reason For Visit: CHF Current Active Problems CHF (congestive heart failure) (Acute) Dementia (Acute) Hospital Course: The patient is a 87 year old male brought via EMS from [facility] and presenting with his daughter, with a significant past medical history of AFIB, chronic renal insufficiency, dementia, HLD, HTN and CHF, who presents to the emergency department with shortness of breath and bilateral lower extremity swelling. The daughter notes that the symptoms have worsened over the last couple of days. The daughter also notes that the patient is compliant with is medications. The patient denies chest pain, headache and dizziness. Denies fever, chills, nausea, vomit, diarrhea and constipation. Denies dysuria, frequency, urgency and hematuria. Allergies: None Past surgical history: Hernia repair Social history: No alcohol, tobacco or drug use reported in ER he got lasix and morphine History Source: Medical Record Limitations to Obtaining History: Clinical Condition, Poor Historian - Past Medical History PATTERNMAKER SAMPLE: Yes: Dementia Cardiovascular: Yes: AFIB (on eliquis), HTN, Hyperlipdemia, Murmur Pulmonary: Yes: COPD Renal/: Yes: Renal Inusuff (BUN/CR 30/1.7 in 01/06) Endocrine: Yes: Diabetes Mellitus - Past Surgical History Past Surgical History: Yes: Appendectomy, Hernia Repair (for incarceration in 2014) (1) (HFpEF) heart failure with preserved ejection fraction Assessment/Plan: repeat cxr worse iv lasix -> po cardio eval noted daily weights monitor lytes check dig level -> 0.5 BB Code(s): I50.9 - HEART FAILURE, UNSPECIFIED (2) A-fib Assessment/Plan: eliquis rate control Code(s): I48.91 - UNSPECIFIED ATRIAL FIBRILLATION (3) HLD (hyperlipidemia) Assessment/Plan: statin Code(s): E78.5 - HYPERLIPIDEMIA, UNSPECIFIED (4) HTN (hypertension) Assessment/Plan: bb norvasc 5 Code(s): I10 - ESSENTIAL (PRIMARY) HYPERTENSION (5) Renal insufficiency Assessment/Plan: base line cr 1.4-1.6 getting worse monitor on po lasix Code(s): N28.9 - DISORDER OF KIDNEY AND URETER, UNSPECIFIED (6) Dementia Assessment/Plan: aricept seroquel Code(s): F03.90 - UNSPECIFIED DEMENTIA WITHOUT BEHAVIORAL DISTURBANCE DISCHARGE PLANNING Condition: Improved - Instructions Referrals: Julia Smith MD [Primary Care Provider] - Disposition: [facility] - Home Medications Comprehensive Discharge Medication List: Ambulatory Orders Digoxin [Lanoxin -] 0.125 mg PO DAILY 06/04/16 Acetaminophen [Tylenol .Regular Strength -] 650 mg PO Q4H PRN #0 tablet Apixaban [Eliquis -] 2.5 mg PO BID tablet 06/07/16 Donepezil HCl [Aricept -] 5 mg PO DAILY tablet 06/07/16 Amlodipine Besylate [Norvasc -] 10 mg PO DAILY tablet 01/11/17 Furosemide [Lasix -] 40 mg PO DAILY tablet 01/11/17
--- NOTE | 2017-01-11 09:55 | PN ---
Progress Note, Physician History of Present Illness: No events overnight. - Current Medication List Current Medications: Active Medications Acetaminophen (Tylenol -) 650 mg PO Q4H PRN PRN Reason: FEVER OR PAIN Last Admin: 01/07/17 15:53 Dose: 650 mg Amlodipine Besylate (Norvasc -) 10 mg PO DAILY [facility] Last Admin: 01/10/17 10:17 Dose: 10 mg Apixaban (Eliquis -) 2.5 mg PO BID [facility] Last Admin: 01/10/17 22:05 Dose: 2.5 mg Atorvastatin Calcium (Lipitor -) 10 mg PO HS [facility] Last Admin: 01/10/17 22:05 Dose: 10 mg Carvedilol (Coreg -) 6.25 mg PO BID [facility] Last Admin: 01/10/17 22:05 Dose: 6.25 mg Digoxin (Lanoxin -) 0.125 mg PO DAILY [facility] Last Admin: 01/10/17 10:16 Dose: 0.125 mg Donepezil HCl (Aricept -) 5 mg PO DAILY [facility] Last Admin: 01/10/17 10:17 Dose: 5 mg Furosemide (Lasix -) 40 mg PO DAILY [facility] Last Admin: 01/10/17 10:17 Dose: 40 mg Quetiapine Fumarate (Seroquel -) 12.5 mg PO DAILY [facility] Last Admin: 01/10/17 10:16 Dose: 12.5 mg Sertraline HCl (Zoloft -) 50 mg PO DAILY [facility] Last Admin: 01/10/17 10:16 Dose: 50 mg - Objective Vital Signs: Vital Signs Temperature 98.8 F 01/11/17 06:00 Pulse Rate 61 01/11/17 06:00 Respiratory Rate 18 01/11/17 06:00 Blood Pressure 126/67 01/11/17 06:00 O2 Sat by Pulse Oximetry (%) 96 01/10/17 21:00 Constitutional: Yes: No Distress Eyes: Yes: Conjunctiva Clear, EOM Intact HENT: Yes: Atraumatic, Normocephalic Cardiovascular: Yes: Pulse Irregular. No: JVD Respiratory: Yes: CTA Bilaterally Gastrointestinal: Yes: Normal Bowel Sounds, Soft. No: Tenderness Edema: No Labs: CBC, BMP 01/11/17 05:35 01/11/17 05:35 INR, PTT INR 1.30 (0.82-1.09) H 01/06/17 22:23 Assessment/Plan 87 yo male with dementia, chronic afib, CKD, HTN, and hyperlipidemia, who is being admitted with acute diastolic CHF. Chest CT demonstrated large bilateral pleural effusions, diffuse pulmonary vascular congestion, and small pericardial effusions. ECG demonstrated atrial fibrillation with poor R wave progression. BNP 13,175 Trops 0.13 -> 0.16, which is likely due to CHF Echocardiogram 01/07/17 demonstrated normal LV size and systolic function, mild LVH, mod LAE, mild MR, mild AR, severe TR with RVSP 50-60 mmHg, mild IA, and small pericardial effusion of no hemodynamic significance. Patient appears euvolemic currently. RECS: Continue carvedilol 6.25 mg po bid for better BP control, and will continue digoxin for afib rate control Continue furosemide 40 mg po daily. Continue Eliquis for afib thrombembolic prophylaxis. Will see prn. Please call with questions. Discharge planning as per primary team
[2017-01-11] MEDS: QUEtiapine FUMARATE 25 MG TABLET (FP) PO SCH (10:36)
[2017-01-11] MEDS: DIGOXIN 0.125 MG TABLET (FP) PO SCH (10:37)
[2017-01-11] MEDS: FUROSEMIDE 40 MG TABLET (FP) PO SCH (10:37)
[2017-01-11] MEDS: CARVEDILOL 6.25 MG TABLET (FP) PO SCH (10:37)
[2017-01-11] MEDS: SERTRALINE HCL 50 MG TABLET (FP) PO SCH (10:37)
[2017-01-11] MEDS: APIXABAN 2.5 MG TABLET PO SCH (10:37)
[2017-01-11] MEDS: DONEPEZIL HCL 5 MG TABLET (FP) PO SCH (10:37)
[2017-01-11] MEDS: amLODIPine BESYLATE 10 MG TABLET (FP) PO SCH (10:37)
[2017-01-11 14:41] VITALS: BP 117/66; PULSE 55; TEMP 98.6
== END 2017-01-11 16:45 | DRG 291 ==
LOC: JER 21:08 → JERBED 01-07 01:40 → J4W 01-07 15:40
PROVIDERS: ADMIT Family Medicine; ATTEND Family Medicine
DX: I13.0 Hypertensive heart and chronic kidney disease with heart failure and stage 1 through stage 4 chronic kidney disease, or unspecified chronic kidney disease (principal); I50.33 Acute on chronic diastolic (congestive) heart failure; N17.9 Acute kidney failure, unspecified; F03.90 Unspecified dementia, unspecified severity, without behavioral disturbance, psychotic disturbance, mood disturbance, and anxiety; E78.5 Hyperlipidemia, unspecified; E66.9 Obesity, unspecified; I48.91 Unspecified atrial fibrillation; Z79.01 Long term (current) use of anticoagulants; N18.9 Chronic kidney disease, unspecified; I48.2 Chronic atrial fibrillation; Z68.21 Body mass index [BMI] 21.0-21.9, adult
CPT/HCPCS: 36415; 71010-TC; 71250-TC; 80048; 80053; 80061; 80162; 81003; 81015; 82550; 82553; 82728; 83036; 83540; 83550; 83721; 83735; 83880; 84439; 84443; 84484; 85025; 85610; 85730; 87086; 93005; 93010; 93306-TC; 93970-TC; 97116-GP; 97161-GP; 99285-25

== ENCOUNTER 2019-02-22 16:35 | Observation (INO) | payer OTHER ==
[2019-02-22 16:47] VITALS: BMI 21.4
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
[2019-02-22] MEDS ORDERED: DIPHTH,PERTUSS(ACELL),TET 0.5 ML DISP.SYRIN IM ONE ×2 (17:38→17:44)
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
[2019-02-22 18:12] LABS: EOS % 1.5 % (0-4.5); HEMATOCRIT 33.9 % (35.4-49); HEMOGLOBIN 11.5 GM/dL (11.7-16.9); LYMPH % 4.9 % (8-40); MCH 32.6 pg (25.7-33.7); MEAN CELL VOLUME 95.8 fl (80-96); MEAN PLT VOLUME 8.4 fl (7.5-11.1); MONO % 7.5 % (3.8-10.2); NEUT % 85.1 % (42.8-82.8); PLATELET COUNT 161 K/MM3 (134-434); RBC 3.54 M/mm3 (4.00-5.60); RDW 14.6 % (11.9-15.9); WHITE BLOOD COUNT 9.5 K/mm3 (4.0-10.0)
[2019-02-22 18:44] LABS: ALBUMIN 3.6 g/dl (3.4-5.0); ALK PHOS 191 U/L (45-117); ANION GAP 10 MMOL/L (8-16); BILIRUBIN,TOTAL 0.3 mg/dL (0.2-1); BLOOD UREA NITROGEN 38 mg/dL (7-18); CALCIUM 8.8 mg/dL (8.5-10.1); CHLORIDE 97 mmol/L (98-107); CO2 26 mmol/L (21-32); CREATININE 1.7 mg/dL (0.55-1.3); GLUCOSE,RANDOM 127 mg/dL (74-106); POTASSIUM 3.3 mmol/L (3.5-5.1); SGOT/AST 22 U/L (15-37); SGPT/ALT 26 U/L (13-61); SODIUM 133 mmol/L (136-145); TOT PROT 7.1 g/dl (6.4-8.2)
[2019-02-22] MEDS ORDERED: ACETAMINOPHEN 325 MG TABLET (FP) PO PRN (19:08)
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
[2019-02-22] MEDS ORDERED: HALOPERIDOL LACTATE 2 MG/ML UNIT-DOSE CUPS PO PRN (22:12)
[2019-02-22] MEDS ORDERED: POTASSIUM CHLORIDE TABS 20 MEQ TABLET.ER (FP) PO ONE (22:14)
[2019-02-22] MEDS ORDERED: DOCUSATE SODIUM 100 MG CAPSULE (FP) PO ONE (22:14)
[2019-02-22] MEDS: POTASSIUM CHLORIDE TABS 20 MEQ TABLET.ER (FP) PO SCH (22:43)
[2019-02-22] MEDS: DOCUSATE SODIUM 100 MG CAPSULE (FP) PO SCH (22:43)
[2019-02-22] MEDS: MEMANTINE HCL 10 MG TABLET (FP) PO SCH (22:43)
[2019-02-22] MEDS: HALOPERIDOL 5 MG TABLET (FP) PO ONE ×2 (23:39→23:41)
[2019-02-23] MEDS: DOCUSATE SODIUM 100 MG CAPSULE (FP) PO SCH ×2 (05:30→15:09)
[2019-02-23 07:20] LABS: BASO % 0.6 % (0-2.0); EOS % 1.4 % (0-4.5); HEMATOCRIT 30.4 % (35.4-49); HEMOGLOBIN 10.5 GM/dL (11.7-16.9); LYMPH % 5.9 % (8-40); MCH 32.9 pg (25.7-33.7); MCHC 34.6 g/dl (32.0-35.9); MEAN CELL VOLUME 95.1 fl (80-96); MEAN PLT VOLUME 8.5 fl (7.5-11.1); MONO % 8.6 % (3.8-10.2); NEUT % 83.5 % (42.8-82.8); PLATELET COUNT 140 K/MM3 (134-434); RBC 3.19 M/mm3 (4.00-5.60); RDW 14.3 % (11.9-15.9); WHITE BLOOD COUNT 9.6 K/mm3 (4.0-10.0)
[2019-02-23 07:58] LABS: ANION GAP 9 MMOL/L (8-16); BLOOD UREA NITROGEN 34 mg/dL (7-18); CALCIUM 8.8 mg/dL (8.5-10.1); CHLORIDE 99 mmol/L (98-107); CO2 27 mmol/L (21-32); CREATININE 1.5 mg/dL (0.55-1.3); GLUCOSE,RANDOM 91 mg/dL (74-106); POTASSIUM 3.4 mmol/L (3.5-5.1); SODIUM 136 mmol/L (136-145)
[2019-02-23] MEDS ORDERED: METOLAZONE 2.5 MG TABLET (FP) PO SCH (09:30)
[2019-02-23] MEDS ORDERED: ALLOPURINOL 100 MG TABLET (FP) PO SCH (10:00)
[2019-02-23] MEDS ORDERED: FUROSEMIDE 40 MG TABLET (FP) PO SCH (10:00)
[2019-02-23] MEDS ORDERED: ASCORBIC ACID 500 MG TABLET (FP) PO SCH (10:00)
[2019-02-23] MEDS ORDERED: RANITIDINE HCL 150 MG TABLET (FP) PO SCH (10:00)
[2019-02-23] MEDS ORDERED: amLODIPine BESYLATE 10 MG TABLET (FP) PO SCH (10:00)
[2019-02-23] MEDS ORDERED: DIGOXIN 0.125 MG TABLET (FP) PO SCH (10:00)
[2019-02-23] MEDS ORDERED: CALCIUM 500MG/VIT-D 200 UNITS COMBO TABLET (FP) PO SCH (10:00)
[2019-02-23] MEDS ORDERED: CHOLECALCIFEROL (VITAMIN D3) 1,000 UNIT TABLET (FP) PO SCH (10:00)
[2019-02-23] MEDS ORDERED: ESCITALOPRAM OXALATE 10 MG TABLET (FP) PO SCH (10:00)
[2019-02-23] MEDS ORDERED: PT OWN MED DRAWER 7, Y5N ONE ×2 (10:03→14:45)
[2019-02-23] MEDS: POTASSIUM CHLORIDE TABS 20 MEQ TABLET.ER (FP) PO SCH (10:15)
[2019-02-23] MEDS: MEMANTINE HCL 10 MG TABLET (FP) PO SCH (10:17)
--- NOTE | 2019-02-23 11:48 | EKG ---
Test Reason : Blood Pressure : / mmHG Vent. Rate : 062 BPM Atrial Rate : 061 BPM P-R Int : 000 ms QRS Dur : 106 ms QT Int : 440 ms P-R-T Axes : 000 -31 014 degrees QTc Int : 446 ms ATRIAL FIBRILLATION LEFT AXIS DEVIATION LOW VOLTAGE QRS INCOMPLETE RIGHT BUNDLE BRANCH BLOCK POSSIBLE LATERAL INFARCT (CITED ON OR BEFORE 07-JAN-2017) ABNORMAL ECG Confirmed by ANA PEREZ, STEVEN ([id number]) on 02/23/2019 11:48:18 AM Referred By: Confirmed By:STEVEN PEREZ MD
[2019-02-23 13:58] VITALS: BP 121/59; PULSE 62; TEMP 97.8
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
== END 2019-02-23 17:32 ==
LOC: JER 16:35 → JERBED 18:36 → J5S 02-23 00:39
PROVIDERS: ADMIT Family Medicine; ATTEND Family Medicine
PROC: 0HQ1XZZ Repair Face Skin, External Approach (ICD-10-PCS; principal; 2019-02-22)
PROC: 0HQKXZZ Repair Right Lower Leg Skin, External Approach (ICD-10-PCS; 2019-02-22)
DX: S01.01XA Laceration without foreign body of scalp, initial encounter (principal); S01.111A Laceration without foreign body of right eyelid and periocular area, initial encounter; S81.011A Laceration without foreign body, right knee, initial encounter; S09.90XA Unspecified injury of head, initial encounter; Y04.8XXA Assault by other bodily force, initial encounter; W03.XXXA Other fall on same level due to collision with another person, initial encounter; Y93.89 Activity, other specified; Y92.122 Bedroom in nursing home as the place of occurrence of the external cause; R11.0 Nausea; E78.5 Hyperlipidemia, unspecified; I48.91 Unspecified atrial fibrillation; F03.90 Unspecified dementia, unspecified severity, without behavioral disturbance, psychotic disturbance, mood disturbance, and anxiety; R01.1 Cardiac murmur, unspecified; J44.9 Chronic obstructive pulmonary disease, unspecified; I50.9 Heart failure, unspecified; E11.9 Type 2 diabetes mellitus without complications; Z79.01 Long term (current) use of anticoagulants
CPT/HCPCS: 12002-25; 12011-25; 36415; 70450-TC; 71045-TC-FY; 80048; 80053; 85025; 90715; 93005; 93010; 99285-25; G0378

== ENCOUNTER 2020-01-25 13:56 | Inpatient (IN) | payer OTHER ==
--- NOTE | 2020-01-25 14:19 | PDOC ---
History of Present Illness - General Stated Complaint: Shortness of Breath Time Seen by Provider: 01/25/20 14:18 Past History - Past Medical History Allergies/Adverse Reactions: Allergies Allergy/AdvReac Type Severity Reaction Status Date / Time No Known Allergies Allergy Verified 01/06/17 21:25 Home Medications: Ambulatory Orders Digoxin [Lanoxin -] 0.125 mg PO DAILY 06/04/16 Acetaminophen [Tylenol .Regular Strength -] 650 mg PO Q4H PRN #0 tablet 06/07/16 Apixaban [Eliquis -] 2.5 mg PO BID tablet 06/07/16 Amlodipine Besylate [Norvasc -] 10 mg PO DAILY tablet 01/11/17 Allopurinol [Zyloprim -] 100 mg PO DAILY 02/22/19 Ascorbate Calcium [Vitamin C] 500 mg PO DAILY 02/22/19 Calcium Carbonate/Vitamin D3 [Oyster Shell 500-Vit D3 200 Tb] 1 each PO DAILY 02/22/19 Cholecalciferol (Vitamin D3) [Vitamin D3] 1,000 unit PO DAILY 02/22/19 Escitalopram Oxalate [Lexapro -] 10 mg PO DAILY 02/22/19 Furosemide [Lasix -] 80 mg PO DAILY 02/22/19 Memantine HCl [Namenda -] 10 mg PO BID 02/22/19 Metolazone [Zaroxolyn -] 2.5 mg PO DAILY 02/22/19 Multivitamin [One-Daily Multi-Vitamin] 1 each PO DAILY 02/22/19 Potassium Chloride 40 meq PO BID 02/22/19 Ranitidine [Zantac -] 300 mg PO DAILY 02/22/19 Cardiac Disorders: Yes (afib) COPD: No CHF: Yes Dementia: Yes Diabetes: Yes HTN: Yes Hypercholesterolemia: Yes - Surgical History Appendectomy: Yes - Immunization History Immunization Up to Date: Yes - Psycho Social/Smoking Cessation Hx Smoking History: Unknown if ever smoked Have you smoked in the past 12 months: No Hx Alcohol Use: No Drug/Substance Use Hx: No Substance Use Type: None Hx Substance Use Treatment: No ED Treatment Course - LABORATORY CBC & Chemistry Diagram: 01/25/20 14:50 01/25/20 14:50 Medical Decision Making - Medical Decision Making 01/25/20 14:56 HPI: 89yo Gibraltarian-speaking M hx Afib (on metoprolol ER 25 and eliquis), chronic renal insufficiency, dementia (baseline alert and oriented only to name, conversational but confused conversations repeating everything and not making sense often), HLD, HTN and CHF sent from [facility] for SOB and O2 desat to 84% on RA today, placed on NRB 15lpm with improvement to 100%. Per proxy Eneida, pt was never previously on O2, and was in [facility], until Wednesday 4 days ago. On Wednesday, E[facility] and pt was on O2 NC 2L continuously even while walking around, told due to SOB and desat. Denies cough, fever, hx lung problems, hx CAD, recent illness. Pt ambulates without assistance. Pt denies all sx. Pt does not know why he's in ED. Echo 01/07/2017 - normal LVEF Proxy - Eneida Jeffery [phone] PCP - Smitacarolyn ROS: unknown accuracy of answers due to baseline dementia, but denies all Constitutional: Negative for chills, fever, fatigue, diaphoresis. HENT: Negative for sore throat, rhinorrhea, congestion. Eyes: Negative for visual disturbance. Respiratory: Positive for SOB. Negative for cough, and wheezing. Cardiovascular: Negative for chest pain, palpitations, and leg swelling. Gastrointestinal: Negative for abdominal pain, blood in stool, constipation, diarrhea, nausea, and vomiting. Genitourinary: Negative for dysuria, flank pain, and hematuria. Musculoskeletal: Negative for myalgias, back pain, and neck pain. Skin: Negative for rash. Neurological: Negative for light-headedness, dizziness, vertigo, syncope, weakness, numbness and headaches. Psychiatric/Behavioral: Positive for dementia. Negative for behavioral problems. PE: Gen: Alert, NAD, comfortable-appearing, on O2 NRB 11lpm HEENT: PERRL, EOMI, MMM, NCAT. No conjunctival pallor. Sclera are non-icteric. Oropharynx is clear. Poor dentition. Grinds teeth loudly. CV: Irregularly irregular rate and rhythm. No murmurs, rubs, or gallops. PULM: Mild resp distress with mouth breathing, speaks in full sentences, no abdominal breathing. CTAB at apices, decreased BS b/l bases, no wheezes, rales, or rhonchi. ABD: soft, NT/ND, no rebound tenderness or guarding, no CVA tenderness. BACK: No TTP of c/t/l-spine. No step-offs or deformities. MSK: No bony deformities. 2+ pulses in all extremities. NEURO: AAOx1 (name only). Can speak in full sentences, follow commands, and answer some questions. PERRL. No gross CN deficits. 5/5 strength in all extremities. Sensation to light touch intact in all extremities. No pronator dri ft. No abnormal nystagmus. EXTREMITIES: No cyanosis. No clubbing. No edema. No calf tenderness. PSYCH: Normal mood, dementia. SKIN: Warm and dry. Normal capillary refill. No jaundice. + small 1cm skin tear to L dorsal hand with malodourous clear drainage, no blood or purulence, no erythema or swelling. MDM: 89yo Gibraltarian-speaking M hx Afib (on eliquis and metoprolol ER 25), chronic renal insufficiency, dementia (baseline alert and oriented only to name, conversational but confused conversations repeating everything and not making sense often), HLD, HTN and CHF sent from [facility] for SOB and O2 desat to 84% on RA today, placed on NRB 15lpm with improvement to 100%, and SOB and O2 requirement 2L NC since Wednesday without any prior O2 requirement. O2 sat 100% on NC 2L, HR 50s-60s with occasional drops into 30s/40s, normotensive, normal RR, afebrile, decreased breath sounds b/l at bases, dementia, small skin tear with malodourous clear drainage to L dorsal hand. Ddx: CHF exacerbation, Afib, arrhythmia, ACS/MN, PNA, UTI, wound infection, COPD, metabolic derangement, anemia -Monitor, pads placed -O2 2L NC -CBC,CMP,Coags,Mg,Phos,BNP,Cardiac profile,UA/UC,BCx,flu -EKG reviewed: Afib with slow ventricular response, 55bpm, QTc 407ms, IRBBB, no e/o acute ischemia -CXR reviewed: large heart, congestive changes, bibasilar pleural effusions with atelectasis and/or infiltrates -L hand culture -Zosyn for PNA -Consider glucagon if bradycardia continues and pt becomes hypotensive -Spoke with proxy Eneida: information in HPI -Dispo: Admit 01/25/20 16:01 POCUS showed global hypokinesis, approx EF 5%, small pericardial effusion without tamponade. Remains normotensive, O2 sat 100% on NC 2L, HR 50s with occasional drops into 40s, no change in mental status, no complaints. 01/25/20 16:42 Labs reviewed. Notable for K 5.6, BUN 39.1, Cr 2.0, Trop 0.27, BNP 18938. CBC,CMP WBC 7.4 K/mm3 (4.0-10.0) 01/25/20 14:50 RBC 3.63 M/mm3 (4.00-5.60) L 01/25/20 14:50 Hgb 11.5 GM/dL (11.7-16.9) L 01/25/20 14:50 Hct 35.6 % (35.4-49) D 01/25/20 14:50 MCV 97.9 fl (80-96) H 01/25/20 14:50 MCH 31.7 pg (25.7-33.7) 01/25/20 14:50 MCHC 32.4 g/dl (32.0-35.9) 01/25/20 14:50 RDW 17.3 % (11.9-15.9) H 01/25/20 14:50 Plt Count 123 K/MM3 (134-434) L 01/25/20 14:50 MPV 9.3 fl (7.5-11.1) 01/25/20 14:50 Absolute Neuts (auto) 5.7 K/mm3 (1.5-8.0) 01/25/20 14:50 Neutrophils % 76.8 % (42.8-82.8) 01/25/20 14:50 Lymphocytes % 7.6 % (8-40) L D 01/25/20 14:50 Monocytes % 10.7 % (3.8-10.2) H 01/25/20 14:50 Eosinophils % 3.7 % (0-4.5) D 01/25/20 14:50 Basophils % 1.2 % (0-2.0) 01/25/20 14:50 Nucleated RBC % 0 % (0-0) 01/25/20 14:50 Sodium 141 mmol/L (136-145) 01/25/20 14:50 Potassium 5.6 mmol/L (3.5-5.1) H 01/25/20 14:50 Chloride 112 mmol/L (98-107) H 01/25/20 14:50 Carbon Dioxide 24 mmol/L (21-32) 01/25/20 14:50 Anion Gap 6 MMOL/L (8-16) L 01/25/20 14:50 BUN 39.1 mg/dL (7-18) H 01/25/20 14:50 Creatinine 2.0 mg/dL (0.55-1.3) H 01/25/20 14:50 Est GFR (CKD-EPI)AfAm 33.54 01/25/20 14:50 Est GFR (CKD-EPI)NonAf 28.94 01/25/20 14:50 Random Glucose 76 mg/dL (74-106) 01/25/20 14:50 Calcium 8.8 mg/dL (8.5-10.1) 01/25/20 14:50 Phosphorus 3.7 mg/dL (2.5-4.9) 01/25/20 14:50 Magnesium 2.4 mg/dL (1.8-2.4) 01/25/20 14:50 Total Bilirubin 0.4 mg/dL (0.2-1) 01/25/20 14:50 AST 40 U/L (15-37) H 01/25/20 14:50 ALT 37 U/L (13-61) 01/25/20 14:50 Alkaline Phosphatase 199 U/L (45-117) H 01/25/20 14:50 Creatine Kinase 111 U/L (26-308) 01/25/20 14:50 Troponin I 0.27 ng/ml (0.00-0.05) H 01/25/20 14:50 B-Natriuretic Peptide 50996.9 pg/ml (5-450) H 01/25/20 14:50 Total Protein 7.0 g/dl (6.4-8.2) 01/25/20 14:50 Albumin 3.3 g/dl (3.4-5.0) L 01/25/20 14:50 -Lasix 40 -Aspirin 324 01/25/20 16:[address] Shahzad Gutierrez - will see pt. 01/25/20 17:11 -Urine and flu sent -Admit - microblog sent 01/25/20 17:51 UA negative. Flu negative. 01/25/20 18:02 Signed out to admitting team. Discharge - Discharge Information Problems reviewed: Yes Clinical Impression/Diagnosis: CHF (congestive heart failure), Pericardial effusion, Pleural effusion, Bradycardia, A-fib, Shortness of breath, Troponin level elevated Condition: Fair - Admission Yes - Follow up/Referral Referrals: Julia Smith MD [Primary Care Provider] - - Patient Discharge Instructions - Post Discharge Activity
[2020-01-25] MEDS ORDERED: PIPERACILLIN/TAZOB 3.375 GM 3.375 GM in DEXTROSE 5%-WATER - 50 ML IVPB ONE (14:50)
[2020-01-25] MEDS ORDERED: PIPERACILLIN/TAZOB 3.375 GM 3.375 GM/50 ML BAG IVPB ONE (15:42)
[2020-01-25 15:57] LABS: BASO % 1.2 % (0-2.0); EOS % 3.7 % (0-4.5); HEMATOCRIT 35.6 % (35.4-49); HEMOGLOBIN 11.5 GM/dL (11.7-16.9); LYMPH % 7.6 % (8-40); MCH 31.7 pg (25.7-33.7); MCHC 32.4 g/dl (32.0-35.9); MEAN CELL VOLUME 97.9 fl (80-96); MEAN PLT VOLUME 9.3 fl (7.5-11.1); MONO % 10.7 % (3.8-10.2); NEUT % 76.8 % (42.8-82.8); PLATELET COUNT 123 K/MM3 (134-434); RBC 3.63 M/mm3 (4.00-5.60); RDW 17.3 % (11.9-15.9); WHITE BLOOD COUNT 7.4 K/mm3 (4.0-10.0)
[2020-01-25 16:21] LABS: INR 1.1 (0.83-1.09)
--- NOTE | 2020-01-25 16:21 | PDOC ---
Documentation entered by Julien Awad SCRIBE, acting as scribe for Leopoldo Rowe MD. Leopoldo Rowe MD: This documentation has been prepared by the Delmi torres Nirvannie, SCRIBE, under my direction and personally reviewed by me in its entirety. I confirm that the documentation accurately reflects all work, treatment, procedures, and medical decision making performed by me. Attending Attestation - Resident Resident Name: Bibi Salgado - ED Attending Attestation I have performed the following: I have examined & evaluated the patient, The case was reviewed & discussed with the resident, I agree w/resident's findings & plan, Exceptions are as noted - HPI HPI: 01/25/20 14:58 CC: SOB, hypoxia, generalized weakness. HPI: The patient is a 89 year old male, with a significant past medical history of dementia, Afib, HTN, HLD, COPD, who presents to the emergency department with shortness of breath, generalized weakness, and hypoxia. Allergies: NKDA Primary Care Physician: Dr. Smith - Physicial Exam PE: 01/25/20 16:30 Vitals: Triage Vital signs reviewed General Appearance: No acute distress, well nourished well developed, Head: Atraumatic, Chest Wall: Nontender Cardiac: Regular rate and rhythym, no murmurs, no rubs, no gallops, Lungs: Clear to auscultation bilateral, good air movement bilaterally, Abdomen: Soft, non distended, normal bowel sounds, [non Rectal: Exam deferred Extremities: Full range of motion to all extremities, no cyanosis, clubbing, or edema Skin: Warm and dry, no rashes or lesions, no rash, no petechiae Psych: Normal mood, normal affect - Medical Decision Making 01/25/20 14:59 89 year old male, with a significant past medical history of dementia, Afib, HTN, HLD, COPD, who presents to the emergency department with shortness of breath, generalized weakness, and hypoxia. Plan is: CBC CMP Magnesium Phosphorus PT/PT INR/PTT Cardiac Profile UA EKG Zosyn 01/25/20 16:41 Patient was noted to be bradycardic EKG demonstrates A. fib with slow response Bedside [id number] echo demonstrates moderate to severe cardiomyopathy Patient will also require cardiology consultation will hold beta-melinda at this time Chest x-ray with evidence of right lower lobe pneumonia will admit for IV antibiotics and further management. 01/25/20 16:42
[2020-01-25 16:24] LABS: ACTIVATED PTT 33.8 SECONDS (25.2-36.5)
[2020-01-25 16:32] LABS: ALBUMIN 3.3 g/dl (3.4-5.0); BILIRUBIN,TOTAL 0.4 mg/dL (0.2-1); BLOOD UREA NITROGEN 39.1 mg/dL (7-18); CALCIUM 8.8 mg/dL (8.5-10.1); MAGNESIUM 2.4 mg/dL (1.8-2.4); N-TERMINAL BNP 17206.9 pg/ml (5-450); PHOSPHOROUS 3.7 mg/dL (2.5-4.9); POTASSIUM 5.6 mmol/L (3.5-5.1)
[2020-01-25] MEDS ORDERED: ASPIRIN 81 MG CHEWABLE TABLETS PO ONE (16:42)
[2020-01-25] MEDS ORDERED: FUROSEMIDE 40 MG/4 ML INJECTABLE VIAL IVPUSH ONE (16:42)
[2020-01-25] MEDS ORDERED: FUROSEMIDE 40 MG/4 ML INJECTABLE VIAL ONE (16:45)
[2020-01-25] MEDS ORDERED: ASPIRIN 81 MG CHEWABLE TABLETS ONE (16:46)
[2020-01-25 17:47] LABS: URINE APPEARANCE CLEAR; URINE BILIRUBIN NEGATIVE (NEGATIVE); URINE COLOR YELLOW; URINE GLUCOSE (UA) NEGATIVE (NEGATIVE); URINE KETONE NEGATIVE (NEGATIVE); URINE LEUK ESTERASE NEGATIVE (NEGATIVE); URINE NITRITE NEGATIVE (NEGATIVE); URINE PROTEIN NEGATIVE (NEGATIVE); URINE UROBILINOGEN 0.2 mg/dL (0.2-1.0)
[2020-01-25] MEDS: ALBUTEROL SO4 2.5/IPRATROPIUM 0.5 INH SOL 3 ML VIAL.NEB. NEB SCH (20:05)
[2020-01-25] MEDS ORDERED: ALBUTEROL SO4 2.5/IPRATROPIUM 0.5 INH SOL 3 ML VIAL.NEB. NEB ONE (20:11)
--- NOTE | 2020-01-25 21:31 | CON.CARD ---
Consult Consult Specialty:: Cardiology Referred by:: Dr. Rowe - ED Reason for Consultation:: CHF and elevated troponin - History of Present Illness Chief Complaint: Shortness of breath History of Present Illness: 89 year-old, [place]er-speaking man, NHR, with a PMHx of long-standing persistent atrial fibrillation (on Eliquis), HTN, HLD, CKD, dementia sent from [facility] 01/25/20 for SOB and O2 desat to 84% on RA. The patient was noticed to have SOB 5 days ago as per his daughter and required NL O2 since than. His SOB worsened on the day of presentation. He was placed on NRB 15lpm with improvement to 100%. The patient appears shortness of breath and orthopnea during exam. He denies chest pain or palpitation. -EKG 01/25/20: Atrial fibrillation with slow ventricular response, 55bpm, QTc 407m s, IRBBB, no e/o acute ischemia -CXR 01/25/20: Cardiomegaly, congestive changes, bibasilar pleural effusions with atelectasis and/or infiltrates -Troponin 0.27-0.24; BNP 94146, K 5.6, BUN 39.1, Cr 2.0. ED bed side echo showed global hypokinesis, approx EF 5%, small pericardial effusion without tamponade. 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 Cardio/Vascular: Yes: AFIB (on Eliquis), HTN, Hyperlipdemia, Murmur Pulmonary: Yes: COPD Renal/: Yes: Renal Inusuff (BUN/CR 30/1.7 in 01/06) Endocrine: Yes: Diabetes Mellitus - Past Surgical History Past Surgical History: Yes: Appendectomy, Hernia Repair (for incarceration in 2014) - Alcohol/Substance Use Hx Alcohol Use: No History of Substance Use: reports: None - Smoking History Smoking history: Unknown if ever smoked Have you smoked in the past 12 months: No - Social History Usual Living Arrangement: With Spouse (but children live upstairs) 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 - Allergies Allergies/Adverse Reactions: Allergies Allergy/AdvReac Type Severity Reaction Status Date / Time No Known Allergies Allergy Verified 01/06/17 21:25 - Home Medications Home Medications: Ambulatory Orders Digoxin [Lanoxin -] 0.125 mg PO DAILY 06/04/16 Acetaminophen [Tylenol .Regular Strength -] 650 mg PO Q4H PRN #0 tablet 06/07/16 Apixaban [Eliquis -] 2.5 mg PO BID tablet 06/07/16 Amlodipine Besylate [Norvasc -] 10 mg PO DAILY tablet 01/11/17 Allopurinol [Zyloprim -] 100 mg PO DAILY 02/22/19 Ascorbate Calcium [Vitamin C] 500 mg PO DAILY 02/22/19 Calcium Carbonate/Vitamin D3 [Oyster Shell 500-Vit D3 200 Tb] 1 each PO DAILY 02/22/19 Cholecalciferol (Vitamin D3) [Vitamin D3] 1,000 unit PO DAILY 02/22/19 Escitalopram Oxalate [Lexapro -] 10 mg PO DAILY 02/22/19 Furosemide [Lasix -] 80 mg PO DAILY 02/22/19 Memantine HCl [Namenda -] 10 mg PO BID 02/22/19 Metolazone [Zaroxolyn -] 2.5 mg PO DAILY 02/22/19 Multivitamin [One-Daily Multi-Vitamin] 1 each PO DAILY 02/22/19 Potassium Chloride 40 meq PO BID 02/22/19 Ranitidine [Zantac -] 300 mg PO DAILY 02/22/19 Vital Signs: Vital Signs Temperature 98.0 F 01/25/20 14:00 Pulse Rate 64 01/25/20 19:55 Respiratory Rate 18 01/25/20 19:55 Blood Pressure 151/84 01/25/20 19:55 O2 Sat by Pulse Oximetry (%) 99 01/25/20 19:55 General: Well developed. Chronic ill and mild dyspnea Head: Normocephalic. Atraumatic, Eyes: PERRLA, EOMI. Sclerae anicteric. Conjunctivae clear. Neck: Supple. (+) JVD. No bruits. Heart: Normal S1, S2: Irregular rhythm and rate. . Lungs: Symmetrical poor air entry. Bibasilar crackle. No wheezing or rhonchi. Abdomen: Soft. Bowel sound positive. Non tender. No masses. Extremities: Trace edema. No clubbing or cyanosis. PD 2+, - Other Data Labs, Other Data: CBC, BMP 01/25/20 14:50 01/25/20 17:45 INR, PTT INR 1.10 (0.83-1.09) H 01/25/20 14:50 Troponin, BNP 01/25/20 01/25/20 14:50 19:55 Troponin I 0.27 H 0.23 H B-Natriuretic Peptide 95924.9 H Troponin, BNP 01/25/20 01/25/20 14:50 19:55 Troponin I 0.27 H 0.23 H B-Natriuretic Peptide 87384.9 H Assessment/Plan 89 year-old, [place]er-speaking man, NHR, with a PMHx of long-standing persistent atrial fibrillation (on Eliquis), HTN, HLD, CKD, dementia sent from [facility] 01/25/20 for SOB and O2 desat to 84% on RA. The patient was noticed to have SOB 5 days ago as per his daughter and required NL O2 since than. His SOB worsened on the day of presentation. He was placed on NRB 15lpm with improvement to 100%. The patient appears shortness of breath and orthopnea during exam. He denies chest pain or palpitation. -EKG 01/25/20: Atrial fibrillation with slow ventricular response, 55bpm, QTc 407ms, IRBBB, no e/o acute ischemia -CXR 01/25/20: Cardiomegaly, congestive changes, bibasilar pleural effusions with atelectasis and/or infiltrates -Troponin 0.27-0.24; BNP 77942, K 5.6, BUN 39.1, Cr 2.0. ED bed side echo showed global hypokinesis, approx EF 5%, small pericardial effusion without tamponade. Recieved Zosyn for PNA. 1) Acute systolic CHF: Start IV Lasix 40 mg twice daily. Add Hydralazine 25 mg BID and Imdur 30 mg daily. Monitor renal function, lytes and Is and Os. Repeat official echo for cardiac function. 2) Elevated troponin. No symptoms of angina, likely type II IN: Demand ischemia, not acute coronary syndrome. Add aspirin Continue Eliquis. 3) Long standing persistent atrial fibrillation with episodes of slow VR. Stop digoxin. Continue Eliquis. Monitor on tele. 4) Pneumonia, CKD as per primary team.
--- NOTE | 2020-01-25 22:13 | HP ---
Admitting History and Physical - Primary Care Physician PCP: Julia Smith - Admission Chief Complaint: SOB History of Present Illness: This is a 89 y/o [place]ian-speaking male from [facility] with a PMHx of Afib (on metoprolol ER 25 and eliquis), Chronic Renal Insufficiency, Dementia (baseline alert and oriented only to name), HLD, HTN, CHF. Who presents to the ED sent for SOB and hypoxia- 84% on RA today, placed on NRB 15lpm with improvement to 100%. Per HCP Eneida, patient was never previously on O2, and was in [place], until Wednesday 4 days ago. On Wednesday, Eneida visited [place] and patient was on O2 NC 2L continuously even while walking around, told due to SOB and hypoxia. 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 Cardiovascular: Yes: AFIB (on Eliquis), HTN, Hyperlipdemia, Murmur Pulmonary: Yes: COPD Renal/: Yes: Renal Inusuff (BUN/CR 30/1.7 in 01/06) Endocrine: Yes: Diabetes Mellitus - Past Surgical History Past Surgical History: Yes: Appendectomy, Hernia Repair (for incarceration in 2014) - Smoking History Smoking history: Unknown if ever smoked Have you smoked in the past 12 months: No - Alcohol/Substance Use Hx Alcohol Use: No History of Substance Use: reports: None - Social History Usual Living Arrangement: Yes: Long Term ADL: Support Services Occupation: Retired- [employer] History of Recent Travel: No Home Medications - Allergies Allergies/Adverse Reactions: Allergies Allergy/AdvReac Type Severity Reaction Status Date / Time No Known Allergies Allergy Verified 01/06/17 21:25 - Home Medications Home Medications: Ambulatory Orders Digoxin [Lanoxin -] 0.125 mg PO DAILY 06/04/16 Acetaminophen [Tylenol .Regular Strength -] 650 mg PO Q4H PRN #0 tablet 06/07/16 Apixaban [Eliquis -] 2.5 mg PO BID tablet 06/07/16 Amlodipine Besylate [Norvasc -] 10 mg PO DAILY tablet 01/11/17 Allopurinol [Zyloprim -] 100 mg PO DAILY 02/22/19 Ascorbate Calcium [Vitamin C] 500 mg PO DAILY 02/22/19 Calcium Carbonate/Vitamin D3 [Oyster Shell 500-Vit D3 200 Tb] 1 each PO DAILY 02/22/19 Cholecalciferol (Vitamin D3) [Vitamin D3] 1,000 unit PO DAILY 02/22/19 Escitalopram Oxalate [Lexapro -] 10 mg PO DAILY 02/22/19 Furosemide [Lasix -] 80 mg PO DAILY 02/22/19 Memantine HCl [Namenda -] 10 mg PO BID 02/22/19 Metolazone [Zaroxolyn -] 2.5 mg PO DAILY 02/22/19 Multivitamin [One-Daily Multi-Vitamin] 1 each PO DAILY 02/22/19 Potassium Chloride 40 meq PO BID 02/22/19 Ranitidine [Zantac -] 300 mg PO DAILY 02/22/19 Family Medical History Family History: Unable to Obtain Review of Systems Unable to obtain ROS, reason: Dementia Physical Examination Vital Signs: Vital Signs Temperature 98.0 F 01/25/20 14:00 Pulse Rate 64 01/25/20 19:55 Respiratory Rate 18 01/25/20 19:55 Blood Pressure 151/84 01/25/20 19:55 O2 Sat by Pulse Oximetry (%) 99 01/25/20 19:55 Constitutional: Yes: No Distress, Calm Eyes: Yes: WNL, Conjunctiva Clear, EOM Intact, PERRL HENT: Yes: WNL, Atraumatic, Normocephalic Neck: Yes: WNL, Supple, Trachea Midline Cardiovascular: Yes: Bradycardia Respiratory: Yes: Cough, Diminished, On Nasal O2, Rhonchi, Wheezes Gastrointestinal: Yes: WNL, Normal Bowel Sounds, Soft ...Rectal Exam: Yes: Deferred Renal/: Yes: Incontinence Breast(s): Yes: WNL Musculoskeletal: Yes: WNL Extremities: Yes: WNL Edema: No Peripheral Pulses WNL: Yes Integumentary: Yes: Skin Tear Neurological: Yes: Alert, Confusion, Unsteady Gait ...Motor Strength: WNL Psychiatric: Yes: Alert Labs: CBC, BMP 01/25/20 14:50 01/25/20 17:45 Laboratory Results - last 24 hr 01/25/20 01/25/20 01/25/20 14:36 14:50 14:50 WBC 7.4 RBC 3.63 L Hgb 11.5 L Hct 35.6 D MCV 97.9 H MCH 31.7 MCHC 32.4 RDW 17.3 H Plt Count 123 L MPV 9.3 Absolute Neuts (auto) 5.7 Neutrophils % 76.8 Lymphocytes % 7.6 L D Monocytes % 10.7 H Eosinophils % 3.7 D Basophils % 1.2 Nucleated RBC % 0 PT with INR 13.00 INR 1.10 H PTT (Actin FS) 33.8 Sodium Potassium Chloride Carbon Dioxide Anion Gap BUN Creatinine Est GFR (CKD-EPI)AfAm Est GFR (CKD-EPI)NonAf Random Glucose Calcium Phosphorus Magnesium Total Bilirubin AST ALT Alkaline Phosphatase Creatine Kinase Troponin I B-Natriuretic Peptide Total Protein Albumin Urine Color Yellow Urine Appearance Clear Urine pH 5.0 D Ur Specific [place] 1.016 Urine Protein Negative Urine Glucose (UA) Negative Urine Ketones Negative Urine Blood Negative Urine Nitrite Negative Urine Bilirubin Negative Urine Urobilinogen 0.2 Ur Leukocyte Esterase Negative Influenza A (Rapid) Influenza B (Rapid) 01/25/20 01/25/20 01/25/20 14:50 16:00 17:45 WBC RBC Hgb Hct MCV MCH MCHC RDW Plt Count MPV Absolute Neuts (auto) Neutrophils % Lymphocytes % Monocytes % Eosinophils % Basophils % Nucleated RBC % PT with INR INR PTT (Actin FS) Sodium 141 Potassium 5.6 H 5.2 H Chloride 112 H Carbon Dioxide 24 Anion Gap 6 L BUN 39.1 H Creatinine 2.0 H Est GFR (CKD-EPI)AfAm 33.54 Est GFR (CKD-EPI)NonAf 28.94 Random Glucose 76 Calcium 8.8 Phosphorus 3.7 Magnesium 2.4 Total Bilirubin 0.4 AST 40 H ALT 37 Alkaline Phosphatase 199 H Creatine Kinase 111 Troponin I 0.27 H B-Natriuretic Peptide 23377.9 H Total Protein 7.0 Albumin 3.3 L Urine Color Urine Appearance Urine pH Ur Specific [place] Urine Protein Urine Glucose (UA) Urine Ketones Urine Blood Urine Nitrite Urine Bilirubin Urine Urobilinogen Ur Leukocyte Esterase Influenza A (Rapid) Negative Influenza B (Rapid) Negative 01/25/20 19:55 WBC RBC Hgb Hct MCV MCH MCHC RDW Plt Count MPV Absolute Neuts (auto) Neutrophils % Lymphocytes % Monocytes % Eosinophils % Basophils % Nucleated RBC % PT with INR INR PTT (Actin FS) Sodium Potassium Chloride Carbon Dioxide Anion Gap BUN Creatinine Est GFR (CKD-EPI)AfAm Est GFR (CKD-EPI)NonAf Random Glucose Calcium Phosphorus Magnesium Total Bilirubin AST ALT Alkaline Phosphatase Creatine Kinase Troponin I 0.23 H B-Natriuretic Peptide Total Protein Albumin Urine Color Urine Appearance Urine pH Ur Specific [place] Urine Protein Urine Glucose (UA) Urine Ketones Urine Blood Urine Nitrite Urine Bilirubin Urine Urobilinogen Ur Leukocyte Esterase Influenza A (Rapid) Influenza B (Rapid) Intake & Output 01/23/20 01/24/20 01/25/20 01/26/20 23:59 23:59 23:59 23:59 Output Total 200 Balance -200 Weight 66.224 kg Imaging - Results Chest X-ray: Image Reviewed EKG: Image Reviewed Problem List - Problems (1) CHF exacerbation Assessment/Plan: Chest Xray image- cardiomegaly, pulmonary vascular changes, bibasilar pleural effusions with atelectasis and or infiltrates BNP 17,000 Lasix given in ED, will continue Continue Hydralazine, Imdur Continue cardiac monitoring Cardiology following- note reviewed O2 Echo in am Strict INOs Daily weights Monitor BMP Code(s): I50.9 - HEART FAILURE, UNSPECIFIED (2) Acute respiratory failure with hypoxia Assessment/Plan: Likely secondary to Fluid Overload vs Pneumonia vs Influenza Chest Xray image reviewed Flu swab- neg A+B Zosyn given in ED [id number] 3 Blood Cultures-pending Will add on Urine Legionella Appreciate ID consult Will treat empirically for CAP Consider CT Chest without contrast 2/2 ISELA r/o Pneumonia Continue O2 Appreciate Pulmonology consult Duonebs Monitor vitals Aspiration Precautions HOB elevated Code(s): J96.01 - ACUTE RESPIRATORY FAILURE WITH HYPOXIA (3) Troponin level elevated Assessment/Plan: Likely due to demand ischemia Serial Enzymes Cardiology following Continue cardiac monitoring EKG- Afib with slow response Code(s): R79.89 - OTHER SPECIFIED ABNORMAL FINDINGS OF BLOOD CHEMISTRY (4) Bradycardia Assessment/Plan: Continue cardiac monitoring Hold BB Cardiology following Fall Precautions Code(s): R00.1 - BRADYCARDIA, UNSPECIFIED (5) A-fib Assessment/Plan: [id number] 5 EKG- afib with slow response Continue Eliqius renal dosing Continue cardiac monitoring Code(s): I48.91 - UNSPECIFIED ATRIAL FIBRILLATION (6) Dementia Assessment/Plan: Continue Home meds Fall Precautions Code(s): F03.90 - UNSPECIFIED DEMENTIA WITHOUT BEHAVIORAL DISTURBANCE (7) HLD (hyperlipidemia) Code(s): E78.5 - HYPERLIPIDEMIA, UNSPECIFIED (8) HTN (hypertension) Assessment/Plan: stable Monitor BP Continue Imdur, Hydralazine Code(s): I10 - ESSENTIAL (PRIMARY) HYPERTENSION (9) Unsteady gait Assessment/Plan: Tele nurse reported unsteady gait Fall Precautions in place Appreciate PT eval for gait conditioning Code(s): R26.81 - UNSTEADINESS ON FEET Assessment/Plan This is a 89 y/o man from [facility] with PMHx of Afib (on metoprolol ER 25 and eliquis), Chronic Renal Insufficiency, Dementia (baseline alert and oriented only to name), HLD, HTN, CHF. Admitted for CHF Exacerbation, Acute Respiratory Failure with Hypoxia, Troponinemia, Acute on Chronic CKD for further evaluation of their emergent condition. Plan: See Problem List FEN Fluid Restriction 1L Replete lytes prn Low Na, Diabetic Diet DVT ppx OOB SCDs Continue Eliquis Code Status: Full Code, HCP Dispo: Requires Inpatient Care Visit type - Emergency Visit Emergency Visit: Yes ED Registration Date: 01/25/20 Care time: The patient presented to the Emergency Department on the above date and was hospitalized for further evaluation of their emergent condition. - New Patient This patient is new to me today: Yes Date on this admission: 01/25/20 - Critical Care Critical Care patient: No
[2020-01-25] MEDS: APIXABAN 2.5 MG TABLET PO SCH (22:37)
[2020-01-25] MEDS: MEMANTINE HCL 10 MG TABLET (FP) PO SCH (22:37)
[2020-01-25 23:54] VITALS: BMI 24.3
[2020-01-26] MEDS ORDERED: CEFTRIAXONE 1 GM in DEXTROSE 5%-WATER - 50 ML IVPB SCH (06:15)
[2020-01-26] MEDS ORDERED: DEXTROSE 5%-WATER - 50 ML IVPB ONE ×3 (06:30→18:29)
[2020-01-26] MEDS ORDERED: cefTRIAXone SODIUM 1 GM VIAL ONE ×2 (06:30→09:15)
[2020-01-26] MEDS: FUROSEMIDE 40 MG/4 ML INJECTABLE VIAL IVPUSH SCH ×2 (06:34→14:15)
[2020-01-26] MEDS: ALBUTEROL SO4 2.5/IPRATROPIUM 0.5 INH SOL 3 ML VIAL.NEB. NEB SCH ×4 (07:15→21:15)
[2020-01-26] MEDS: APIXABAN 2.5 MG TABLET PO SCH ×2 (09:41→22:54)
[2020-01-26] MEDS: CALCIUM 500MG/VIT-D 200 UNITS COMBO TABLET (FP) PO SCH (09:41)
[2020-01-26] MEDS: MULTIVITAMINS (DAILY MVI) TABLET (FP) PO SCH (09:41)
[2020-01-26] MEDS: ISOSORBIDE MONONITRATE 30 MG TAB.SR.24H (FP) PO SCH (09:41)
[2020-01-26] MEDS: ESCITALOPRAM OXALATE 10 MG TABLET PO SCH (09:42)
[2020-01-26] MEDS: MEMANTINE HCL 10 MG TABLET (FP) PO SCH ×2 (09:42→22:54)
[2020-01-26] MEDS: ALLOPURINOL 100 MG TABLET (FP) PO SCH (09:42)
[2020-01-26] MEDS: hydrALAZINE HCL 25 MG TABLET (FP) PO SCH ×2 (09:42→22:54)
[2020-01-26] MEDS: ASPIRIN 81 MG CHEWABLE TABLETS PO SCH (09:42)
[2020-01-26 09:46] LABS: EOS % 2.5 % (0-4.5); LYMPH % 7.4 % (8-40); MCH 31.8 pg (25.7-33.7); MCHC 33.2 g/dl (32.0-35.9); MEAN CELL VOLUME 95.7 fl (80-96); MEAN PLT VOLUME 8.9 fl (7.5-11.1); MONO % 7.4 % (3.8-10.2); NEUT % 81.7 % (42.8-82.8); PLATELET COUNT 100 K/MM3 (134-434); RBC 3.45 M/mm3 (4.00-5.60); RDW 16.8 % (11.9-15.9); WHITE BLOOD COUNT 6.1 K/mm3 (4.0-10.0)
[2020-01-26] MEDS ORDERED: FUROSEMIDE 40 MG/4 ML INJECTABLE VIAL IVPUSH SCH (10:00)
[2020-01-26 10:03] LABS: BLOOD UREA NITROGEN 41.7 mg/dL (7-18); CALCIUM 8.7 mg/dL (8.5-10.1); POTASSIUM 3.8 mmol/L (3.5-5.1)
[2020-01-26] MEDS: AZITHROMYCIN IVPB 500 MG/250 ML BAG IVPB SCH (10:37)
--- NOTE | 2020-01-26 11:30 | ECHO ---
Name: CLAUDIA WELLER Exam:Adult Echocardiogram Study Date: 01/26/2020 10:34 AM Age: 89 yrs Reason For Study: SOB Height: 65 in Weight: 140 lb BSA: 1.7 m2 MMode/2D Measurements & Calculations IVSd: 1.8 cm Ao root diam: 2.4 cm LVIDd: 3.4 cm LA dimension: 4.5 cm LVIDs: 2.5 cm ACS: 1.7 cm LVPWd: 1.6 cm EDV(Teich): 47.4 ml LVOT diam: 1.8 cm ESV(Teich): 23.2 ml RV S Roney: 12.8 cm/sec Doppler Measurements & Calculations MV E max roney: 67.0 cm/sec MV A max roney: 62.2 cm/sec MV dec slope: 364.7 cm/sec2 MV E/A: 1.1 Ao V2 max: 171.3 cm/sec AI max roney: 304.0 cm/sec Ao max P.9 mmHg AI max P.0 mmHg Ao V2 mean: 109.6 cm/sec AI dec slope: 107.7 cm/sec2 Ao mean P.8 mmHg Ao V2 VTI: 33.9 cm TAYLA(I,D): 1.6 cm2 AI P1/2t: 826.9 msec TAYLA(V,D): 1.7 cm2 LV V1 max P.0 mmHg SV(LVOT): 52.8 ml LV V1 mean P.2 mmHg LV V1 max: 112.3 cm/sec LV V1 mean: 69.0 cm/sec LV V1 VTI: 20.4 cm TR max roney: 351.4 cm/sec PA V2 max: 77.8 cm/sec TR max P.1 mmHg PA max P.4 mmHg PI end-d roney: 101.8 cm/sec Med Peak E' Roney: 3.4 cm/sec Med E/e': 19.9 Lat Peak E' Roney: 7.0 cm/sec Lat E/e': 9.6 Left Ventricle There is severe concentric left ventricular hypertrophy. Left ventricular systolic function is grossl y normal. Ejection Fraction = 50-55%. The transmitral spectral Doppler flow pattern is suggestive of pseudonormalization. Right Ventricle The right ventricle is moderately dilated. The right ventricular systolic function is mildly reduced. Atria The left atrium is moderately dilated. The right atrium is mild to moderately dilated. Mitral Valve The mitral valve is normal in structure and function. There is no mitral valve stenosis. There is tra ce to mild mitral regurgitation. Tricuspid Valve The tricuspid valve is normal in structure and function. There is moderate tricuspid regurgitation. R ight ventricular systolic pressure is elevated at >60mmHg. There is severe pulmonary hypertension. Aortic Valve There is mild aortic sclerosis.;. No hemodynamically significant valvular aortic stenosis. Mild aorti c regurgitation. Pulmonic Valve The pulmonic valve is not well seen, but is grossly normal. There is no pulmonic valvular stenosis. M ild pulmonic valvular regurgitation. Great Vessels The aortic root is normal size. Pericardium/Pleura There is a mild pericardial effusion. There are no echocardiographic indications of cardiac tamponade . Interpretation Summary There is severe concentric left ventricular hypertrophy. Left ventricular systolic function is grossly normal. Ejection Fraction = 50-55%. The right ventricle is moderately dilated. The right ventricular systolic function is mildly reduced. The left atrium is moderately dilated. The right atrium is mild to moderately dilated. There is moderate tricuspid regurgitation. Right ventricular systolic pressure is elevated at >60mmHg. There is severe pulmonary hypertension. There is mild aortic sclerosis.; Mild aortic regurgitation. There is a mild pericardial effusion. There are no echocardiographic indications of cardiac tamponade. MD Adhikari *Kervin 01/26/2020 11:30 AM
--- NOTE | 2020-01-26 11:32 | PN ---
Progress Note (short form) - Note Progress Note: PULMONARY CONSULTATION DICTATED 01/26/20 IMP ACUTE HYPOXEMIC RESPIRATORY FAILURE ACUTE CHF ELEVATED TROPONIN LEVEL AFIB HTN DM ACUTE ON CKD DEMENTIA PLAN IV LASIX SUPPLEMENTAL O2 NIPPV NEEDED FOR INCREASED RESPIRATORY DISTRESS DAILY WTS MONITOR LYTES,RENAL FUNCTION TREND TROPONINS ECHO RATE CONTROL F/U CHEST X-RAYS DR WALKER Problem List - Problems (1) Chronic kidney disease Code(s): N18.9 - CHRONIC KIDNEY DISEASE, UNSPECIFIED (2) A-fib Code(s): I48.91 - UNSPECIFIED ATRIAL FIBRILLATION (3) Acute respiratory failure with hypoxia Code(s): J96.01 - ACUTE RESPIRATORY FAILURE WITH HYPOXIA (4) CHF (congestive heart failure) Code(s): I50.9 - HEART FAILURE, UNSPECIFIED (5) Pleural effusion Code(s): J90 - PLEURAL EFFUSION, NOT ELSEWHERE CLASSIFIED (6) Shortness of breath Code(s): R06.02 - SHORTNESS OF BREATH (7) Troponin level elevated Code(s): R79.89 - OTHER SPECIFIED ABNORMAL FINDINGS OF BLOOD CHEMISTRY (8) HLD (hyperlipidemia) Code(s): E78.5 - HYPERLIPIDEMIA, UNSPECIFIED (9) HTN (hypertension) Code(s): I10 - ESSENTIAL (PRIMARY) HYPERTENSION (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
--- NOTE | 2020-01-26 11:34 | EKG ---
Test Reason : Blood Pressure : / mmHG Vent. Rate : 055 BPM Atrial Rate : 068 BPM P-R Int : 000 ms QRS Dur : 098 ms QT Int : 426 ms P-R-T Axes : 000 013 222 degrees QTc Int : 407 ms ATRIAL FIBRILLATION WITH SLOW VENTRICULAR RESPONSE INCOMPLETE RIGHT BUNDLE BRANCH BLOCK NONSPECIFIC T WAVE ABNORMALITY ABNORMAL ECG WHEN COMPARED WITH ECG OF 22-FEB-2019 17:53, T WAVE INVERSION NOW EVIDENT IN LATERAL LEADS Confirmed by LUIS MCKEON MD ([id number]) on 01/26/2020 11:34:12 AM Referred By: Confirmed By:LUIS MCKEON MD
--- NOTE | 2020-01-26 12:54 | CONSULT ---
Consult - text type - Consultation Consultation Note: Renal consult for CKD and fluid overload This is a 89 year old gentleman with history of CKD, atrial fibrillation on anticoagulation, hypertension, hyperlipidemia and dementia presented from the NH with hypoxia and shortness of breath and found to have acute HF and noted to have Cr of 2. Pt is sleeping but arouseable. Unable to obtain further history from the patient given demntia. Noted to have Cr of 1.5 in 2015. PMhx: as above Allergies: NKDA Family Hx: NC [place] Hx: unable to obtain. ROS:unable to obtain given clinical status Home Medications Medication Instructions Recorded Digoxin [Lanoxin -] 0.125 mg PO DAILY 06/04/16 Acetaminophen [Tylenol .Regular 650 mg PO Q4H PRN #0 tablet 06/07/16 Strength -] Apixaban [Eliquis -] 2.5 mg PO BID tablet 06/07/16 Amlodipine Besylate [Norvasc -] 10 mg PO DAILY tablet 01/11/17 Allopurinol [Zyloprim -] 100 mg PO DAILY 02/22/19 Ascorbate Calcium [Vitamin C] 500 mg PO DAILY 02/22/19 Calcium Carbonate/Vitamin D3 1 each PO DAILY 02/22/19 [Oyster Shell 500-Vit D3 200 Tb] Cholecalciferol (Vitamin D3) 1,000 unit PO DAILY 02/22/19 [Vitamin D3] Escitalopram Oxalate [Lexapro -] 10 mg PO DAILY 02/22/19 Furosemide [Lasix -] 80 mg PO DAILY 02/22/19 Memantine HCl [Namenda -] 10 mg PO BID 02/22/19 Metolazone [Zaroxolyn -] 2.5 mg PO DAILY 02/22/19 Multivitamin [One-Daily 1 each PO DAILY 02/22/19 Multi-Vitamin] Potassium Chloride 40 meq PO BID 02/22/19 Ranitidine [Zantac -] 300 mg PO DAILY 02/22/19 Vital Signs Temperature 98.8 F 01/26/20 10:00 Pulse Rate 56 L 01/26/20 10:00 Respiratory Rate 01/26/20 10:00 Blood Pressure 146/71 01/26/20 10:00 O2 Sat by Pulse Oximetry (%) 97 01/26/20 09:00 Intake & Output 01/23/20 01/24/20 01/25/20 01/26/20 23:59 23:59 23:59 23:59 Output Total 200 Balance -200 Weight 66.224 kg NAD sleeping bout arouable Neck supple RRR Dec BS, + rales soft NT/ND no bladder distension no LE edema, trace sacral edema no cyanosis or clubbing no focal neurologic deficits CBC, BMP 01/26/20 09:08 01/26/20 09:08 Current Medications Albuterol/Ipratropium (Duoneb -) 1 amp NEB RQID [facility] Last Admin: 01/26/20 11:21 Dose: 1 amp Documented by: Allopurinol (Zyloprim -) 100 mg PO DAILY [facility] Last Admin: 01/26/20 09:42 Dose: 100 mg Documented by: Apixaban (Eliquis -) 2.5 mg PO BID [facility] Last Admin: 01/26/20 09:41 Dose: 2.5 mg Documented by: Aspirin (Asa -) 81 mg PO DAILY [facility] Last Admin: 01/26/20 09:42 Dose: 81 mg Documented by: Calcium Carbonate/Cholecalciferol (Os-Shar 500+D -) 1 tab PO DAILY [facility] Last Admin: 01/26/20 09:41 Dose: 1 tab Documented by: Escitalopram Oxalate (Lexapro -) 10 mg PO DAILY [facility] Last Admin: 01/26/20 09:42 Dose: 10 mg Documented by: Furosemide (Lasix Injection -) 40 mg IVPUSH BID@0600,1400 [facility] Last Admin: 01/26/20 06:34 Dose: 40 mg Documented by: Hydralazine HCl (Apresoline -) 25 mg PO BID [facility] Last Admin: 01/26/20 09:42 Dose: 25 mg Documented by: Ceftriaxone Sodium 1 gm/ (Dextrose) 50 mls @ 100 mls/hr IVPB DAILY [facility]; Protocol Last Admin: 01/26/20 06:34 Dose: 100 mls/hr Documented by: Azithromycin (Zithromax 500mg Ivpb (Pre-Docked)) 500 mg in 250 mls @ 250 mls/hr IVPB DAILY [facility] Last Admin: 01/26/20 10:37 Dose: 250 mls/hr Documented by: Isosorbide Mononitrate (Imdur -) 30 mg PO DAILY [facility] Last Admin: 01/26/20 09:41 Dose: 30 mg Documented by: Memantine (Namenda -) 10 mg PO BID [facility] Last Admin: 01/26/20 09:42 Dose: 10 mg Documented by: Metolazone (Zaroxolyn -) 2.5 mg PO DAILY [facility] Multivitamins/Minerals/Vitamin C (Tab-A-Vit -) 1 tab PO DAILY [facility] Last Admin: 01/26/20 09:41 Dose: 1 tab Documented by: 89 year old gentleman with history of CKD, atrial fibrillation on anticoagulation, hypertension, hyperlipidemia and dementia presented from the [place] with hypoxia and shortness of breath and found to have acute HF and noted to have Cr of 2. 1. Acute heart failure 2. CKD 3. Fluid overload 4. Hypoxic respiratroy failure 5. hypertension 6. hyperlpidemia Renal function appears stable no overt electroylte or acid/base disturbance noted continue IV Lasix BID for CHF Also on PO Metolazone 2.5mg daily Trend renal function, electrolytes daily Check Renal US to access kidney size and texture Check urine studies for FeUra, UPCR, Eosinophils Cardiology follow up ECHO if needed per Cardiology Thank you Neal Gonzalez DO
--- NOTE | 2020-01-26 13:09 | PN ---
Progress Note, Physician Chief Complaint: EVENTS AND NOTES REVIEWED PATIENT IN BED WITH 02 NC ASLEEP NAD - Current Medication List Current Medications: Active Medications Albuterol/Ipratropium (Duoneb -) 1 amp NEB RQID [facility] Last Admin: 01/26/20 11:21 Dose: 1 amp Documented by: Allopurinol (Zyloprim -) 100 mg PO DAILY [facility] Last Admin: 01/26/20 09:42 Dose: 100 mg Documented by: Apixaban (Eliquis -) 2.5 mg PO BID [facility] Last Admin: 01/26/20 09:41 Dose: 2.5 mg Documented by: Aspirin (Asa -) 81 mg PO DAILY [facility] Last Admin: 01/26/20 09:42 Dose: 81 mg Documented by: Calcium Carbonate/Cholecalciferol (Os-Shar 500+D -) 1 tab PO DAILY [facility] Last Admin: 01/26/20 09:41 Dose: 1 tab Documented by: Escitalopram Oxalate (Lexapro -) 10 mg PO DAILY [facility] Last Admin: 01/26/20 09:42 Dose: 10 mg Documented by: Furosemide (Lasix Injection -) 40 mg IVPUSH BID@0600,1400 [facility] Last Admin: 01/26/20 06:34 Dose: 40 mg Documented by: Hydralazine HCl (Apresoline -) 25 mg PO BID [facility] Last Admin: 01/26/20 09:42 Dose: 25 mg Documented by: Ceftriaxone Sodium 1 gm/ (Dextrose) 50 mls @ 100 mls/hr IVPB DAILY [facility]; Protocol Last Admin: 01/26/20 06:34 Dose: 100 mls/hr Documented by: Azithromycin (Zithromax 500mg Ivpb (Pre-Docked)) 500 mg in 250 mls @ 250 mls/hr IVPB DAILY [facility] Last Admin: 01/26/20 10:37 Dose: 250 mls/hr Documented by: Isosorbide Mononitrate (Imdur -) 30 mg PO DAILY [facility] Last Admin: 01/26/20 09:41 Dose: 30 mg Documented by: Memantine (Namenda -) 10 mg PO BID [facility] Last Admin: 01/26/20 09:42 Dose: 10 mg Documented by: Metolazone (Zaroxolyn -) 2.5 mg PO DAILY [facility] Multivitamins/Minerals/Vitamin C (Tab-A-Vit -) 1 tab PO DAILY [facility] Last Admin: 01/26/20 09:41 Dose: 1 tab Documented by: - Objective Vital Signs: Vital Signs Temperature 98.8 F 01/26/20 10:00 Pulse Rate 56 L 01/26/20 10:00 Respiratory Rate 01/26/20 10:00 Blood Pressure 146/71 01/26/20 10:00 O2 Sat by Pulse Oximetry (%) 97 01/26/20 09:00 Constitutional: Yes: Mild Distress Eyes: Yes: WNL HENT: Yes: WNL Neck: Yes: WNL Cardiovascular: Yes: Pulse Irregular Respiratory: Yes: Diminished, On Nasal O2 Gastrointestinal: Yes: Soft Genitourinary: Yes: Incontinence Musculoskeletal: Yes: Muscle Weakness Edema: Yes Edema: LLE: Trace, RLE: Trace Integumentary: Yes: Venous Stasis Changes Neurological: Yes: Confusion, Pre-Existing Deficit Labs: CBC, BMP 01/26/20 09:08 01/26/20 09:08 INR, PTT INR 1.10 (0.83-1.09) H 01/25/20 14:50 Problem List - Problems (1) A-fib Code(s): I48.91 - UNSPECIFIED ATRIAL FIBRILLATION (2) Acute respiratory failure with hypoxia Code(s): J96.01 - ACUTE RESPIRATORY FAILURE WITH HYPOXIA (3) Bradycardia Code(s): R00.1 - BRADYCARDIA, UNSPECIFIED (4) CHF (congestive heart failure) Code(s): I50.9 - HEART FAILURE, UNSPECIFIED (5) Pericardial effusion Code(s): I31.3 - PERICARDIAL EFFUSION (NONINFLAMMATORY) (6) Pleural effusion Code(s): J90 - PLEURAL EFFUSION, NOT ELSEWHERE CLASSIFIED (7) Unsteady gait Code(s): R26.81 - UNSTEADINESS ON FEET (8) Acute kidney injury Code(s): N17.9 - ACUTE KIDNEY FAILURE, UNSPECIFIED (9) Dementia Code(s): F03.90 - UNSPECIFIED DEMENTIA WITHOUT BEHAVIORAL DISTURBANCE (10) HLD (hyperlipidemia) Code(s): E78.5 - HYPERLIPIDEMIA, UNSPECIFIED (11) HTN (hypertension) Code(s): I10 - ESSENTIAL (PRIMARY) HYPERTENSION Assessment/Plan ON TELEMETRY CARDIOLOGY AND PULMONARY FOLLOW UP NEPHROLOGY CALLED FOR ACUTE RENAL FAILURE DIURETICS GIVEN CAREFULLY, MONITOR RENAL FUNCTION. 02 SUPPORT DAILY WEIGHTS ON ELIQUIS FOR AFIB ADVANCED DIRECTIVES NEEDED
[2020-01-26] MEDS: METOLAZONE 2.5 MG TABLET (FP) PO SCH (13:15)
--- NOTE | 2020-01-26 13:53 | CONS ---
DATE OF CONSULTATION: 01/26/2020 PULMONARY CONSULTATION REFERRING PHYSICIAN: Julia Smith MD HISTORY OF PRESENT ILLNESS: History is obtained from medical records. Patient does not speak [place]. Patient is an 89-year-old [place] male, past medical history of atrial fibrillation, on metoprolol and Eliquis, chronic kidney disease, dementia, hyperlipidemia, hypertension, CHF, a care home resident, who was transferred to [facility] with hypoxemia and shortness of breath. Apparently the patient was never on O2. Apparently was in his usual state of health until Wednesday prior to admission when the daughter noted that the patient was short of breath on nasal O2 and was told that the patient was hypoxic. On the day of admission the patient had increasing shortness of breath and was hypoxic, 84% on room air, at which time he was placed on 15% nonrebreather and transferred to [facility] ER. In the ER he was felt to be in acute congestive heart failure. He was started on Lasix and transferred up to medical telemetry unit for further monitoring. He was also noted to have elevated troponin levels. No further history is available at this time. Again patient is [place] speaking and has dementia. PAST MEDICAL HISTORY: Again includes atrial fibrillation, on metoprolol and Eliquis, dementia, chronic kidney disease, hypertension, hyperlipidemia. REVIEW OF SYSTEMS: Unable to obtain. CURRENT MEDICATIONS: Include Zithromax, ceftriaxone, Eliquis, Lexapro, Zyloprim, DuoNeb, Namenda, Apresoline, Lasix, vitamin C, Imdur and aspirin, Os-Shar and Zaroxolyn. PHYSICAL EXAMINATION:General: Patient is an elderly male, drowsy but in no acute distress. Vital Signs: He is currently afebrile. Blood pressure is 145/70, respiratory rate is 20, O2 saturation is 97% on 3 L, nasal cannula. HEENT: Normocephalic, atraumatic. Neck: Supple. Heart: Irregularly irregular, S1, S2. Chest: Few bibasilar crackles. Abdomen: Soft. Bowel sounds positive. Extremities: No cyanosis or edema. LABORATORIES: BUN 41, creatinine 2.0. BNP is 17,206. Troponin initially 0.27, subsequently 0.23. WBC is 6.1, hemoglobin 11, hematocrit 33.0 with a platelet count of 100,000. bilateral pleural effusion, cardiomegaly and congestion. IMPRESSION: 1. Acute hypoxemic respiratory failure secondary to acute congestive heart failure. 2. Elevated troponin level. 3. Atrial fibrillation. 4. Hypertension. 5. Diabetes. 6. Rnsgo-nj-bdxcemy kidney disease. 7. Dementia. PLAN: Continue IV Lasix. Supplemental O2. NIPPV as needed for increase in respiratory distress. Daily weights. Monitor electrolytes, renal function. Trend troponins. Obtain echo, followup chest x-rays. HARRY WALKER M.D. [id number]
--- NOTE | 2020-01-26 15:58 | PN ---
Progress Note (short form) - Note Progress Note: ID CONSULT DICTATED CHF R/O PNEUMONIA AZOTEMIA THROMBOCYTOPENIA AWAIT C/S EMPIRIC ZOSYN, ADJUSTED FOR AZOTEMIA
--- NOTE | 2020-01-26 16:57 | PN ---
Progress Note, Physician Chief Complaint: The patient appears comfortable at the time of exam. he reports no chest pain, shortness of breath, palpitation or dizziness. Telemetry reviewed, it showed atrial fibrillation at rate of 60-70 BPM. Episodes of slow VR in the low 40s noted. History of Present Illness: 89 year-old, Maltese-speaking man, NHR, with a PMHx of long-standing persistent atrial fibrillation (on Eliquis), HTN, HLD, CKD, dementia sent from [facility] 01/25/20 for SOB and O2 desat to 84% on RA. The patient was noticed to have SOB 5 days ago as per his daughter and required NL O2 since than. His SOB worsened on the day of presentation. He was placed on NRB 15lpm with improvement to 100%. The patient appears shortness of breath and orthopnea during exam. He denies chest pain or palpitation. -EKG 01/25/20: Atrial fibrillation with slow ventricular response, 55bpm, QTc 407ms, IRBBB, no e/o acute ischemia -CXR 01/25/20: Cardiomegaly, congestive changes, bibasilar pleural effusions with atelectasis and/or infiltrates -Troponin 0.27-0.24; BNP 85207, K 5.6, BUN 39.1, Cr 2.0. ED bed side echo showed global hypokinesis, approx EF 5%, small pericardial effusion without tamponade. Recieved Zosyn for PNA Official echo 01/26/20: Severe concentric LVH with grossly normal LV systolic function. LVEF 50-55%. Moderate RV dilatation with mild hypokinesis. Mild to moderate LA and RA dilatation. Mild AI. Moderate TR. Severe pulm HTN, RVSP > 60 mmHg. - Current Medication List Current Medications: Active Medications Albuterol/Ipratropium (Duoneb -) 1 amp NEB RQID [facility] Last Admin: 01/26/20 16:02 Dose: 1 amp Documented by: Allopurinol (Zyloprim -) 100 mg PO DAILY [facility] Last Admin: 01/26/20 09:42 Dose: 100 mg Documented by: Apixaban (Eliquis -) 2.5 mg PO BID [facility] Last Admin: 01/26/20 09:41 Dose: 2.5 mg Documented by: Aspirin (Asa -) 81 mg PO DAILY [facility] Last Admin: 01/26/20 09:42 Dose: 81 mg Documented by: Calcium Carbonate/Cholecalciferol (Os-Shar 500+D -) 1 tab PO DAILY [facility] Last Admin: 01/26/20 09:41 Dose: 1 tab Documented by: Escitalopram Oxalate (Lexapro -) 10 mg PO DAILY [facility] Last Admin: 01/26/20 09:42 Dose: 10 mg Documented by: Furosemide (Lasix Injection -) 40 mg IVPUSH BID@0600,1400 [facility] Last Admin: 01/26/20 14:15 Dose: 40 mg Documented by: Hydralazine HCl (Apresoline -) 25 mg PO BID [facility] Last Admin: 01/26/20 09:42 Dose: 25 mg Documented by: Azithromycin (Zithromax 500mg Ivpb (Pre-Docked)) 500 mg in 250 mls @ 250 mls/hr IVPB DAILY [facility] Last Admin: 01/26/20 10:37 Dose: 250 mls/hr Documented by: Piperacillin Sod/Tazobactam (Sod 2.25 gm/ Dextrose) 50 mls @ 100 mls/hr IVPB Q8H-IV [facility]; Protocol Isosorbide Mononitrate (Imdur -) 30 mg PO DAILY [facility] Last Admin: 01/26/20 09:41 Dose: 30 mg Documented by: Memantine (Namenda -) 10 mg PO BID [facility] Last Admin: 01/26/20 09:42 Dose: 10 mg Documented by: Metolazone (Zaroxolyn -) 2.5 mg PO DAILY [facility] Last Admin: 01/26/20 13:15 Dose: 2.5 mg Documented by: Multivitamins/Minerals/Vitamin C (Tab-A-Vit -) 1 tab PO DAILY [facility] Last Admin: 01/26/20 09:41 Dose: 1 tab Documented by: - Objective Vital Signs: Vital Signs Temperature 98 F 01/26/20 14:00 Pulse Rate 68 01/26/20 14:00 Respiratory Rate 20 01/26/20 14:00 Blood Pressure 110/71 01/26/20 14:00 O2 Sat by Pulse Oximetry (%) 97 01/26/20 09:00 General: Well developed. Chronic ill and frail. No acute distress. Head: Normocephalic. Atraumatic, Eyes: PERRLA, EOMI. Sclerae anicteric. Conjunctivae clear. Neck: Supple. (+) JVD. No bruits. Heart: Normal S1, S2: Irregular rhythm and rate. No murmur. No gallop or rub. Lungs: Symmetrical poor air entry. No crackles. No wheezing or rhonchi. Abdomen: Soft. Bowel sound positive. Non tender. No masses. Extremities: Trace edema. No clubbing or cyanosis. Labs: CBC, BMP 01/26/20 09:08 01/26/20 09:08 INR, PTT INR 1.10 (0.83-1.09) H 01/25/20 14:50 Assessment/Plan 89 year-old, Maltese-speaking man, NHR, with a PMHx of long-standing persistent atrial fibrillation (on Eliquis), HTN, HLD, CKD, dementia sent from [facility] 01/25/20 for SOB and O2 desat to 84% on RA. The patient was noticed to have SOB 5 days ago as per his daughter and required NL O2 since than. His SOB worsened on the day of presentation. He was placed on NRB 15lpm with improvement to 100%. The patient appears shortness of breath and orthopnea during exam. He denies chest pain or palpitation. -EKG 01/25/20: Atrial fibrillation with slow ventricular response, 55bpm, QTc 407ms, IRBBB, no e/o acute ischemia -CXR 01/25/20: Cardiomegaly, congestive changes, bibasilar pleural effusions with atelectasis and/or infiltrates -Troponin 0.27-0.24; BNP 58928, K 5.6, BUN 39.1, Cr 2.0. ED bed side echo showed global hypokinesis, approx EF 5%, small pericardial effusion without tamponade. Recieved Zosyn for PNA Official echo 01/26/20: Severe concentric LVH with grossly normal LV systolic function. LVEF 50-55%. Moderate RV dilatation with mild hypokinesis. Mild to moderate LA and RA dilatation. Mild AI. Moderate TR. Severe pulm HTN, RVSP > 60 mmHg. 1) Acute diastolic CHF with evidence of RV dysfunction and severe pulm HTN (Pulm HTN is likely mixed Group 2: pulmonary hypertension due to left heart disease and Group 3: pulmonary hypertension due to lung disease and/or chronic hypoxia.): -Diuresis: Continue IV Lasix 40 mg twice daily with Metolazone. -Monitor renal function, electrolytes, Is&Os. -Continue Hydralazine 25 mg BID and Imdur 30 mg daily. 2) Elevated troponin. No symptoms of angina, likely type II [place]: Demand ischemia, not acute coronary syndrome. Troponin is trending down. Continue Eliquis. May stop aspirin. 3) Long standing persistent atrial fibrillation with episodes of slow VR. Digoxin was discontinued. Continue Eliquis. Monitor on tele. 4) Pneumonia, CKD as per primary team.
--- NOTE | 2020-01-26 17:32 | CONS ---
INFECTIOUS DISEASE CONSULTATION DATE OF CONSULTATION: DATE OF DICTATION: 01/26/2020 HISTORY: The patient is an 89-year-old male evaluated for possible pneumonia. History was obtained from the chart as he cannot give a reliable history secondary to dementia. He is a resident of a nursing home facility. According to the chart, he was noted to be increasingly short of breath and hypoxemic. He was transferred to the emergency room where his course was notable for bradycardia. A chest x-ray was performed and showed bibasilar increased markings consistent with congestive heart failure, possible infiltrate/atelectasis. Cultures were obtained. He was empirically treated with Zosyn. He was seen in consultation by Pulmonary and Cardiology. EKG was performed and revealed atrial fibrillation with slow ventricular response. He was treated for acute decompensated congestive heart failure, possible pneumonia. Blood cultures were obtained. At the present time, he is awake; however, he is confused secondary to his dementia. He is unable to offer any additional meaningful history. He is supine in bed with a Orchard vest on. No reports of cough, sputum production, hemoptysis, vomiting, diarrhea. No known ill contacts. No documented influenza or pneumococcal vaccines. PAST MEDICAL HISTORY: Positive for dementia, CHF, atrial fibrillation, chronic kidney disease, hypertension, hyperlipidemia. ALLERGIES: No known allergies. MEDICATIONS: Include Zithromax, ceftriaxone, Zosyn, albuterol, Eliquis, hydralazine, isosorbide, aspirin, Zoloft, Namenda. SOCIAL HISTORY: He resides in a nursing home facility. No active tobacco or alcohol use. SYSTEMS REVIEW: Neurologic: Positive for dementia. Cardiac: As per HPI. Respiratory: As per HPI. Gastrointestinal: Negative vomiting or diarrhea. Genitourinary: Negative for urinary tract infection. LABORATORY DATA: White count 6.1, hematocrit 33.0, platelet count 100, BUN 41, creatinine 2.0. Urinalysis negative leukocyte esterase. Influenza swab negative. Blood cultures pending. PHYSICAL EXAMINATION: General: He is awake. He is supine in bed with a Orchard vest in place and no acute distress. Vital Signs: Temperature 98, blood pressure 110/71, pulse 68 regular, respirations 20 per minute. HEENT: Sclerae anicteric. Heart: Sounds S1, S2. Lungs: Poor inspiratory effort. No rales, rhonchi, or wheezing. Abdomen: Soft and nontender. Extremities: Negative for edema. Positive for chronic venostasis dermatitis. IMPRESSION: 1. Decompensated congestive heart failure. 2. Rule out pneumonia. 3. Azotemia. 4. Thrombocytopenia. 5. Dementia. PLAN: Await cultures. Continue antibiotic coverage. assisted acquired pathogens with Zosyn adjusted for renal insufficiency. Cardiology and Pulmonary follow up. We will follow. Thank you for the kind referral. LUIS STRICKLAND M.D. [id number]
[2020-01-26] MEDS ORDERED: PIPERACILLIN/TAZOBACTAM 2.25 GM VIAL IVPB ONE (18:29)
[2020-01-26] MEDS: PIPERACILLIN/TAZOB 2.25 GM 2.25 GM in DEXTROSE 5%-WATER - 50 ML IVPB SCH (18:43)
[2020-01-27] MEDS ORDERED: PIPERACILLIN/TAZOBACTAM 2.25 GM VIAL IVPB ONE ×3 (00:33→17:14)
[2020-01-27] MEDS ORDERED: DEXTROSE 5%-WATER - 50 ML IVPB ONE ×3 (00:34→17:14)
[2020-01-27] MEDS: PIPERACILLIN/TAZOB 2.25 GM 2.25 GM in DEXTROSE 5%-WATER - 50 ML IVPB SCH ×3 (01:51→17:26)
[2020-01-27] MEDS: FUROSEMIDE 40 MG/4 ML INJECTABLE VIAL IVPUSH SCH ×2 (06:51→13:55)
[2020-01-27 07:47] LABS: BASO % 0.9 % (0-2.0); EOS % 4.4 % (0-4.5); HEMATOCRIT 32.7 % (35.4-49); HEMOGLOBIN 10.8 GM/dL (11.7-16.9); LYMPH % 6.9 % (8-40); MCH 31.8 pg (25.7-33.7); MEAN CELL VOLUME 96.4 fl (80-96); MEAN PLT VOLUME 8.7 fl (7.5-11.1); MONO % 9.8 % (3.8-10.2); PLATELET COUNT 98 K/MM3 (134-434); RDW 16.5 % (11.9-15.9); WHITE BLOOD COUNT 6.6 K/mm3 (4.0-10.0)
[2020-01-27] MEDS: ALBUTEROL SO4 2.5/IPRATROPIUM 0.5 INH SOL 3 ML VIAL.NEB. NEB SCH ×4 (07:56→20:05)
[2020-01-27 08:04] LABS: BLOOD UREA NITROGEN 40.4 mg/dL (7-18); CALCIUM 8.7 mg/dL (8.5-10.1); MAGNESIUM 2.1 mg/dL (1.8-2.4); POTASSIUM 3.3 mmol/L (3.5-5.1)
--- NOTE | 2020-01-27 09:43 | PN ---
Progress Note, Physician - Current Medication List Current Medications: Active Medications Albuterol/Ipratropium (Duoneb -) 1 amp NEB RQID [facility] Last Admin: 01/26/20 21:15 Dose: 1 amp Documented by: Allopurinol (Zyloprim -) 100 mg PO DAILY [facility] Last Admin: 01/26/20 09:42 Dose: 100 mg Documented by: Apixaban (Eliquis -) 2.5 mg PO BID [facility] Last Admin: 01/26/20 22:54 Dose: 2.5 mg Documented by: Aspirin (Asa -) 81 mg PO DAILY [facility] Last Admin: 01/26/20 09:42 Dose: 81 mg Documented by: Calcium Carbonate/Cholecalciferol (Os-Shar 500+D -) 1 tab PO DAILY [facility] Last Admin: 01/26/20 09:41 Dose: 1 tab Documented by: Escitalopram Oxalate (Lexapro -) 10 mg PO DAILY [facility] Last Admin: 01/26/20 09:42 Dose: 10 mg Documented by: Furosemide (Lasix Injection -) 40 mg IVPUSH BID@0600,1400 [facility] Last Admin: 01/27/20 06:51 Dose: 40 mg Documented by: Hydralazine HCl (Apresoline -) 25 mg PO BID [facility] Last Admin: 01/26/20 22:54 Dose: 25 mg Documented by: Azithromycin (Zithromax 500mg Ivpb (Pre-Docked)) 500 mg in 250 mls @ 250 mls/hr IVPB DAILY [facility] Last Admin: 01/26/20 10:37 Dose: 250 mls/hr Documented by: Piperacillin Sod/Tazobactam (Sod 2.25 gm/ Dextrose) 50 mls @ 100 mls/hr IVPB Q8H-IV [facility]; Protocol Last Admin: 01/27/20 01:51 Dose: 100 mls/hr Documented by: Isosorbide Mononitrate (Imdur -) 30 mg PO DAILY [facility] Last Admin: 01/26/20 09:41 Dose: 30 mg Documented by: Memantine (Namenda -) 10 mg PO BID [facility] Last Admin: 01/26/20 22:54 Dose: 10 mg Documented by: Metolazone (Zaroxolyn -) 2.5 mg PO DAILY [facility] Last Admin: 01/26/20 13:15 Dose: 2.5 mg Documented by: Multivitamins/Minerals/Vitamin C (Tab-A-Vit -) 1 tab PO DAILY [facility] Last Admin: 01/26/20 09:41 Dose: 1 tab Documented by: - Objective Vital Signs: Vital Signs Temperature 97.5 F L 01/27/20 06:00 Pulse Rate 67 01/27/20 06:00 Respiratory Rate 20 01/27/20 06:00 Blood Pressure 127/68 01/27/20 06:00 O2 Sat by Pulse Oximetry (%) 95 01/26/20 22:00 Cardiovascular: Yes: S1, S2 Respiratory: Yes: On Nasal O2, Rales, Rhonchi Labs: CBC, BMP 01/27/20 06:50 01/27/20 06:50 INR, PTT INR 1.10 (0.83-1.09) H 01/25/20 14:50 Problem List - Problems (1) Pneumonia Assessment/Plan: iv abx id consult noted cxr Code(s): J18.9 - PNEUMONIA, UNSPECIFIED ORGANISM (2) A-fib Assessment/Plan: on eliquis rate controlled Code(s): I48.91 - UNSPECIFIED ATRIAL FIBRILLATION (3) CHF (congestive heart failure) Assessment/Plan: iv lasix and monitor cxr Code(s): I50.9 - HEART FAILURE, UNSPECIFIED (4) Renal insufficiency Assessment/Plan: renal on board Code(s): N28.9 - DISORDER OF KIDNEY AND URETER, UNSPECIFIED
[2020-01-27] MEDS: ASPIRIN 81 MG CHEWABLE TABLETS PO SCH (10:01)
[2020-01-27] MEDS: APIXABAN 2.5 MG TABLET PO SCH ×2 (10:01→21:42)
[2020-01-27] MEDS: ESCITALOPRAM OXALATE 10 MG TABLET PO SCH (10:01)
[2020-01-27] MEDS: AZITHROMYCIN IVPB 500 MG/250 ML BAG IVPB SCH (10:01)
[2020-01-27] MEDS: MEMANTINE HCL 10 MG TABLET (FP) PO SCH ×2 (10:01→21:42)
[2020-01-27] MEDS: ISOSORBIDE MONONITRATE 30 MG TAB.SR.24H (FP) PO SCH (10:01)
[2020-01-27] MEDS: CALCIUM 500MG/VIT-D 200 UNITS COMBO TABLET (FP) PO SCH (10:01)
[2020-01-27] MEDS: MULTIVITAMINS (DAILY MVI) TABLET (FP) PO SCH (10:01)
[2020-01-27] MEDS: METOLAZONE 2.5 MG TABLET (FP) PO SCH (10:01)
[2020-01-27] MEDS: ALLOPURINOL 100 MG TABLET (FP) PO SCH (10:01)
[2020-01-27] MEDS: hydrALAZINE HCL 25 MG TABLET (FP) PO SCH ×2 (10:01→21:42)
--- NOTE | 2020-01-27 10:25 | PN ---
Progress Note, Physician Chief Complaint: less sob tele nsr pvcs History of Present Illness: 89 year-old, [place]-speaking man, NHR, with a PMHx of long-standing persistent atrial fibrillation (on Eliquis), HTN, HLD, CKD, dementia sent from [facility] 01/25/20 for SOB and O2 desat to 84% on RA. The patient was noticed to have SOB 5 days ago as per his daughter and required NL O2 since than. His SOB worsened on the day of presentation. He was placed on NRB 15lpm with improvement to 100%. The patient appears shortness of breath and orthopnea during exam. He denies chest pain or palpitation. -EKG 01/25/20: Atrial fibrillation with slow ventricular response, 55bpm, QTc 407ms, IRBBB, no e/o acute ischemia -CXR 01/25/20: Cardiomegaly, congestive changes, bibasilar pleural effusions with atelectasis and/or infiltrates -Troponin 0.27-0.24; BNP 65811, K 5.6, BUN 39.1, Cr 2.0. ED bed side echo showed global hypokinesis, approx EF 5%, small pericardial effusion without tamponade. Recieved Zosyn for PNA Official echo 01/26/20: Severe concentric LVH with grossly normal LV systolic fun ction. LVEF 50-55%. Moderate RV dilatation with mild hypokinesis. Mild to moderate LA and RA dilatation. Mild AI. Moderate TR. Severe pulm HTN, RVSP > 60 mmHg. - Current Medication List Current Medications: Active Medications Albuterol/Ipratropium (Duoneb -) 1 amp NEB RQID [facility] Last Admin: 01/26/20 21:15 Dose: 1 amp Documented by: Allopurinol (Zyloprim -) 100 mg PO DAILY [facility] Last Admin: 01/27/20 10:01 Dose: 100 mg Documented by: Apixaban (Eliquis -) 2.5 mg PO BID [facility] Last Admin: 01/27/20 10:01 Dose: 2.5 mg Documented by: Aspirin (Asa -) 81 mg PO DAILY [facility] Last Admin: 01/27/20 10:01 Dose: 81 mg Documented by: Calcium Carbonate/Cholecalciferol (Os-Shar 500+D -) 1 tab PO DAILY [facility] Last Admin: 01/27/20 10:01 Dose: 1 tab Documented by: Escitalopram Oxalate (Lexapro -) 10 mg PO DAILY [facility] Last Admin: 01/27/20 10:01 Dose: 10 mg Documented by: Furosemide (Lasix Injection -) 40 mg IVPUSH BID@0600,1400 [facility] Last Admin: 01/27/20 06:51 Dose: 40 mg Documented by: Hydralazine HCl (Apresoline -) 25 mg PO BID [facility] Last Admin: 01/27/20 10:01 Dose: 25 mg Documented by: Azithromycin (Zithromax 500mg Ivpb (Pre-Docked)) 500 mg in 250 mls @ 250 mls/hr IVPB DAILY [facility] Last Admin: 01/27/20 10:01 Dose: 250 mls/hr Documented by: Piperacillin Sod/Tazobactam (Sod 2.25 gm/ Dextrose) 50 mls @ 100 mls/hr IVPB Q8H-IV [facility]; Protocol Last Admin: 01/27/20 10:01 Dose: 100 mls/hr Documented by: Isosorbide Mononitrate (Imdur -) 30 mg PO DAILY [facility] Last Admin: 01/27/20 10:01 Dose: 30 mg Documented by: Memantine (Namenda -) 10 mg PO BID [facility] Last Admin: 01/27/20 10:01 Dose: 10 mg Documented by: Metolazone (Zaroxolyn -) 2.5 mg PO DAILY [facility] Last Admin: 01/27/20 10:01 Dose: 2.5 mg Documented by: Multivitamins/Minerals/Vitamin C (Tab-A-Vit -) 1 tab PO DAILY [facility] Last Admin: 01/27/20 10:01 Dose: 1 tab Documented by: - Objective Vital Signs: Vital Signs Temperature 97.5 F L 01/27/20 06:00 Pulse Rate 67 01/27/20 06:00 Respiratory Rate 20 01/27/20 06:00 Blood Pressure 127/68 01/27/20 06:00 O2 Sat by Pulse Oximetry (%) 95 01/26/20 22:00 Constitutional: Yes: No Distress, Calm Eyes: Yes: Conjunctiva Clear, EOM Intact HENT: Yes: Atraumatic, Normocephalic Neck: Yes: Supple, Trachea Midline Cardiovascular: Yes: Regular Rate and Rhythm, JVD Respiratory: Yes: Rales (bilat bases) Gastrointestinal: Yes: Normal Bowel Sounds, Soft Musculoskeletal: Yes: WNL Extremities: Yes: WNL Edema: No Labs: CBC, BMP 01/27/20 06:50 01/27/20 06:50 INR, PTT INR 1.10 (0.83-1.09) H 01/25/20 14:50 Assessment/Plan 89 year-old, Swiss-speaking man, NHR, with a PMHx of long-standing persistent atrial fibrillation (on Eliquis), HTN, HLD, CKD, dementia sent from [facility] 01/25/20 for SOB and O2 desat to 84% on RA. The patient was noticed to have SOB 5 days ago as per his daughter and required NL O2 since than. His SOB worsened on the day of presentation. He was placed on NRB 15lpm with improvement to 100%. The patient appears shortness of breath and orthopnea during exam. He denies chest pain or palpitation. -EKG 01/25/20: Atrial fibrillation with slow ventricular response, 55bpm, QTc 407ms, IRBBB, no e/o acute ischemia -CXR 01/25/20: Cardiomegaly, congestive changes, bibasilar pleural effusions with atelectasis and/or infiltrates -Troponin 0.27-0.24; BNP 68869, K 5.6, BUN 39.1, Cr 2.0. ED bed side echo showed global hypokinesis, approx EF 5%, small pericardial effusion without tamponade. Recieved Zosyn for PNA Official echo 01/26/20: Severe concentric LVH with grossly normal LV systolic function. LVEF 50-55%. Moderate RV dilatation with mild hypokinesis. Mild to moderate LA and RA dilatation. Mild AI. Moderate TR. Severe pulm HTN, RVSP > 60 mmHg. 1) Acute diastolic CHF with evidence of RV dysfunction and severe pulm HTN (Pulm HTN is likely mixed Group 2: pulmonary hypertension due to left heart disease and Group 3: pulmonary hypertension due to lung disease and/or chronic hypoxia .): -Diuresis: Continue IV Lasix 40 mg twice daily with Metolazone. -Monitor renal function, electrolytes, Is&Os. -Continue Hydralazine 25 mg BID and Imdur 30 mg daily. 2) Elevated troponin. No symptoms of angina, likely type II PA: Demand ischemia, not acute coronary syndrome. Troponin is trending down. 3) Long standing persistent atrial fibrillation with episodes of slow VR. Digoxin was discontinued. Continue Eliquis. stop aspirin. Monitor on tele. 4) Pneumonia, CKD as per primary team.
--- NOTE | 2020-01-27 11:09 | PN ---
Progress Note, Physician History of Present Illness: Pt seen and examined at bedside. he is awake and appears comfortable. - Current Medication List Current Medications: Active Medications Albuterol/Ipratropium (Duoneb -) 1 amp NEB RQID [facility] Last Admin: 01/27/20 07:56 Dose: 1 amp Documented by: Allopurinol (Zyloprim -) 100 mg PO DAILY [facility] Last Admin: 01/27/20 10:01 Dose: 100 mg Documented by: Apixaban (Eliquis -) 2.5 mg PO BID [facility] Last Admin: 01/27/20 10:01 Dose: 2.5 mg Documented by: Aspirin (Asa -) 81 mg PO DAILY [facility] Last Admin: 01/27/20 10:01 Dose: 81 mg Documented by: Calcium Carbonate/Cholecalciferol (Os-Shar 500+D -) 1 tab PO DAILY [facility] Last Admin: 01/27/20 10:01 Dose: 1 tab Documented by: Escitalopram Oxalate (Lexapro -) 10 mg PO DAILY [facility] Last Admin: 01/27/20 10:01 Dose: 10 mg Documented by: Furosemide (Lasix Injection -) 40 mg IVPUSH BID@0600,1400 [facility] Last Admin: 01/27/20 06:51 Dose: 40 mg Documented by: Hydralazine HCl (Apresoline -) 25 mg PO BID [facility] Last Admin: 01/27/20 10:01 Dose: 25 mg Documented by: Azithromycin (Zithromax 500mg Ivpb (Pre-Docked)) 500 mg in 250 mls @ 250 mls/hr IVPB DAILY [facility] Last Admin: 01/27/20 10:01 Dose: 250 mls/hr Documented by: Piperacillin Sod/Tazobactam (Sod 2.25 gm/ Dextrose) 50 mls @ 100 mls/hr IVPB Q 8H-IV [facility]; Protocol Last Admin: 01/27/20 10:01 Dose: 100 mls/hr Documented by: Isosorbide Mononitrate (Imdur -) 30 mg PO DAILY [facility] Last Admin: 01/27/20 10:01 Dose: 30 mg Documented by: Memantine (Namenda -) 10 mg PO BID [facility] Last Admin: 01/27/20 10:01 Dose: 10 mg Documented by: Metolazone (Zaroxolyn -) 2.5 mg PO DAILY [facility] Last Admin: 01/27/20 10:01 Dose: 2.5 mg Documented by: Multivitamins/Minerals/Vitamin C (Tab-A-Vit -) 1 tab PO DAILY [facility] Last Admin: 01/27/20 10:01 Dose: 1 tab Documented by: - Objective Vital Signs: Vital Signs Temperature 98.1 F 01/27/20 10:00 Pulse Rate 73 01/27/20 10:00 Respiratory Rate 20 01/27/20 10:00 Blood Pressure 116/58 L 01/27/20 10:00 O2 Sat by Pulse Oximetry (%) 98 01/27/20 09:00 Constitutional: Yes: Calm Eyes: Yes: Conjunctiva Clear HENT: Yes: Atraumatic Cardiovascular: Yes: S1, S2 Respiratory: Yes: CTA Bilaterally Gastrointestinal: Yes: Soft Genitourinary: Yes: Incontinence Musculoskeletal: Yes: Muscle Weakness Edema: No Neurological: Yes: Confusion Labs: CBC, BMP 01/27/20 06:50 01/27/20 06:50 INR, PTT INR 1.10 (0.83-1.09) H 01/25/20 14:50 Assessment/Plan Current Medications Generic Name Dose Route Start Last Admin Trade Name Claudia PRN Reason Stop Dose Admin Albuterol/Ipratropium 1 amp 01/25/20 20:00 01/27/20 07:56 Duoneb - NEB 1 amp RQID [facility] Administration Allopurinol 100 mg 01/26/20 10:00 01/27/20 10:01 Zyloprim - PO 100 mg DAILY [facility] Administration Apixaban 2.5 mg 01/25/20 22:30 01/27/20 10:01 Eliquis - PO 2.5 mg BID [facility] Administration Aspirin 81 mg 01/26/20 10:00 01/27/20 10:01 Asa - PO 81 mg DAILY [facility] Administration Calcium Carbonate/Cholecalciferol 1 tab 01/26/20 10:00 01/27/20 10:01 Os-Shar 500+D - PO 1 tab DAILY [facility] Administration Escitalopram Oxalate 10 mg 01/26/20 10:00 01/27/20 10:01 Lexapro - PO 10 mg DAILY [facility] Administration Furosemide 40 mg 01/26/20 06:00 01/27/20 06:51 Lasix Injection - IVPUSH 40 mg BID@0600,1400 [facility] Administration Hydralazine HCl 25 mg 01/26/20 10:00 01/27/20 10:01 Apresoline - PO 25 mg BID [facility] Administration Azithromycin 500 mg in 250 mls @ 250 mls/hr 01/26/20 10:00 01/27/20 10:01 Zithromax 500mg Ivpb (Pre-Docked) IVPB 250 mls/hr DAILY [facility] Administration Piperacillin Sod/Tazobactam 50 mls @ 100 mls/hr 01/26/20 18:00 01/27/20 10:01 Sod 2.25 gm/ Dextrose IVPB 100 mls/hr Q8H-IV [facility] Administration Protocol Isosorbide Mononitrate 30 mg 01/26/20 10:00 01/27/20 10:01 Imdur - PO 30 mg DAILY [facility] Administration Memantine 10 mg 01/25/20 22:30 01/27/20 10:01 Namenda - PO 10 mg BID [facility] Administration Metolazone 2.5 mg 01/26/20 10:00 01/27/20 10:01 Zaroxolyn - PO 2.5 mg DAILY [facility] Administration Multivitamins/Minerals/Vitamin C 1 tab 01/26/20 10:00 01/27/20 10:01 Tab-A-Vit - PO 1 tab DAILY [facility] Administration Laboratory Tests 01/25/20 14:36 Urine Protein Negative Urine Blood Negative 1. Acute heart failure 2. CKD 3. Fluid overload 4. Hypoxic respiratroy failure 5. hypertension 6. hyperlpidemia 7. hypokalemia Plan - replace potassium - cont diuretics - follow cxr - sodium is rising, monitor daily - will order renal ultrasound - ua negative blood or protein, unlikely that there is active disease - cardio follow up
--- NOTE | 2020-01-27 11:12 | PN ---
Progress Note (short form) - Note Progress Note: PULMONARY VSS/AFEBRILE [place]/Dementia General: Well developed. Chronic ill in appearance Head: Normocephalic Eyes: Sclerae anicteric. Neck: Supple. (+) JVD. No bruits. Heart: Normal S1, S2: Irregular Lungs: Symmetrical poor air entry. Bibasilar crackles Abdomen: Soft. Bowel sound positive. Non tender. Extremities: Trace edema CHART/LABS/MEDS/NOTES/IMAGES/CARDIO EVAL REVIEWED IMP ACUTE HYPOXEMIC RESPIRATORY FAILURE ACUTE CHF/PULMONARY EDEMA ELEVATED TROPONIN LEVEL AFIB HTN DM ACUTE ON CKD DEMENTIA PLAN IV LASIX SUPPLEMENTAL O2 NIPPV NEEDED FOR INCREASED RESPIRATORY DISTRESS DAILY WTS MONITOR LYTES,RENAL FUNCTION TREND TROPONINS RATE CONTROL F/U CHEST X-RAYS Rosario HAYNES MD
[2020-01-27] MEDS ORDERED: POTASSIUM CHLORIDE TABS 20 MEQ TABLET.ER (FP) PO ONE (11:21)
[2020-01-28] MEDS ORDERED: PIPERACILLIN/TAZOBACTAM 2.25 GM VIAL IVPB ONE ×3 (01:44→17:31)
[2020-01-28] MEDS ORDERED: DEXTROSE 5%-WATER - 50 ML IVPB ONE ×3 (01:45→17:31)
[2020-01-28] MEDS: PIPERACILLIN/TAZOB 2.25 GM 2.25 GM in DEXTROSE 5%-WATER - 50 ML IVPB SCH ×3 (03:02→17:36)
[2020-01-28] MEDS: FUROSEMIDE 40 MG/4 ML INJECTABLE VIAL IVPUSH SCH ×2 (06:10→15:10)
[2020-01-28] MEDS: ALBUTEROL SO4 2.5/IPRATROPIUM 0.5 INH SOL 3 ML VIAL.NEB. NEB SCH ×4 (08:09→21:20)
[2020-01-28 08:31] LABS: ALBUMIN 3.1 g/dl (3.4-5.0); BILIRUBIN,TOTAL 0.7 mg/dL (0.2-1); BLOOD UREA NITROGEN 42.2 mg/dL (7-18); CALCIUM 9.2 mg/dL (8.5-10.1); CREATININE 2.2 mg/dL (0.55-1.3); TOT PROT 6.4 g/dl (6.4-8.2)
[2020-01-28] MEDS: MULTIVITAMINS (DAILY MVI) TABLET (FP) PO SCH (09:01)
[2020-01-28] MEDS: ESCITALOPRAM OXALATE 10 MG TABLET PO SCH (09:01)
[2020-01-28] MEDS: ISOSORBIDE MONONITRATE 30 MG TAB.SR.24H (FP) PO SCH (09:01)
[2020-01-28] MEDS: hydrALAZINE HCL 25 MG TABLET (FP) PO SCH ×2 (09:01→21:51)
[2020-01-28] MEDS: ASPIRIN 81 MG CHEWABLE TABLETS PO SCH (09:01)
[2020-01-28] MEDS: ALLOPURINOL 100 MG TABLET (FP) PO SCH (09:01)
[2020-01-28] MEDS: CALCIUM 500MG/VIT-D 200 UNITS COMBO TABLET (FP) PO SCH (09:01)
[2020-01-28] MEDS: METOLAZONE 2.5 MG TABLET (FP) PO SCH (09:02)
[2020-01-28] MEDS: AZITHROMYCIN IVPB 500 MG/250 ML BAG IVPB SCH (09:02)
[2020-01-28] MEDS: MEMANTINE HCL 10 MG TABLET (FP) PO SCH ×2 (09:03→21:51)
[2020-01-28] MEDS: APIXABAN 2.5 MG TABLET PO SCH ×2 (09:03→21:52)
[2020-01-28] MEDS ORDERED: POTASSIUM CHLORIDE TABS 10 MEQ TABLET.ER (FP) PO ONE (09:30)
[2020-01-28] MEDS: KCL 10 MEQ IVPB 10 MEQ/100 ML INFUS.BAG IVPB SCH ×2 (10:25→12:10)
--- NOTE | 2020-01-28 11:16 | PN ---
Progress Note, Physician Chief Complaint: less sob tele nsr pvcs History of Present Illness: 89 year-old, Northern Irish-speaking man, NHR, with a PMHx of long-standing persistent atrial fibrillation (on Eliquis), HTN, HLD, CKD, dementia sent from [facility] 01/25/20 for SOB and O2 desat to 84% on RA. The patient was noticed to have SOB 5 days ago as per his daughter and required NL O2 since than. His SOB worsened on the day of presentation. He was placed on NRB 15lpm with improvement to 100%. The patient appears shortness of breath and orthopnea during exam. He denies chest pain or palpitation. -EKG 01/25/20: Atrial fibrillation with slow ventricular response, 55bpm, QTc 407ms, IRBBB, no e/o acute ischemia -CXR 01/25/20: Cardiomegaly, congestive changes, bibasilar pleural effusions with atelectasis and/or infiltrates -Troponin 0.27-0.24; BNP 28708, K 5.6, BUN 39.1, Cr 2.0. ED bed side echo showed global hypokinesis, approx EF 5%, small pericardial effusion without tamponade. Recieved Zosyn for PNA Official echo 01/26/20: Severe concentric LVH with grossly normal LV systolic fun ction. LVEF 50-55%. Moderate RV dilatation with mild hypokinesis. Mild to moderate LA and RA dilatation. Mild AI. Moderate TR. Severe pulm HTN, RVSP > 60 mmHg. - Current Medication List Current Medications: Active Medications Albuterol/Ipratropium (Duoneb -) 1 amp NEB RQID [facility] Last Admin: 01/28/20 08:09 Dose: 1 amp Documented by: Allopurinol (Zyloprim -) 100 mg PO DAILY [facility] Last Admin: 01/28/20 09:01 Dose: 100 mg Documented by: Apixaban (Eliquis -) 2.5 mg PO BID [facility] Last Admin: 01/28/20 09:03 Dose: 2.5 mg Documented by: Aspirin (Asa -) 81 mg PO DAILY [facility] Last Admin: 01/28/20 09:01 Dose: 81 mg Documented by: Calcium Carbonate/Cholecalciferol (Os-Shar 500+D -) 1 tab PO DAILY [facility] Last Admin: 01/28/20 09:01 Dose: 1 tab Documented by: Escitalopram Oxalate (Lexapro -) 10 mg PO DAILY [facility] Last Admin: 01/28/20 09:01 Dose: 10 mg Documented by: Furosemide (Lasix Injection -) 40 mg IVPUSH BID@0600,1400 [facility] Last Admin: 01/28/20 06:10 Dose: 40 mg Documented by: Hydralazine HCl (Apresoline -) 25 mg PO BID [facility] Last Admin: 01/28/20 09:01 Dose: 25 mg Documented by: Azithromycin (Zithromax 500mg Ivpb (Pre-Docked)) 500 mg in 250 mls @ 250 mls/hr IVPB DAILY [facility] Last Admin: 01/28/20 09:02 Dose: 250 mls/hr Documented by: Piperacillin Sod/Tazobactam (Sod 2.25 gm/ Dextrose) 50 mls @ 100 mls/hr IVPB Q8H-IV [facility]; Protocol Last Admin: 01/28/20 09:02 Dose: 100 mls/hr Documented by: Potassium Chloride (Potassium Chloride 10 Meq Premix Ivpb -) 10 meq in 100 mls @ 100 mls/hr IVPB Q60M [facility] Stop: 01/28/20 11:44 Isosorbide Mononitrate (Imdur -) 30 mg PO DAILY [facility] Last Admin: 01/28/20 09:01 Dose: 30 mg Documented by: Memantine (Namenda -) 10 mg PO BID [facility] Last Admin: 01/28/20 09:03 Dose: 10 mg Documented by: Metolazone (Zaroxolyn -) 2.5 mg PO DAILY [facility] Last Admin: 01/28/20 09:02 Dose: 2.5 mg Documented by: Multivitamins/Minerals/Vitamin C (Tab-A-Vit -) 1 tab PO DAILY [facility] Last Admin: 01/28/20 09:01 Dose: 1 tab Documented by: - Objective Vital Signs: Vital Signs Temperature 97.8 F 01/28/20 08:14 Pulse Rate 66 01/28/20 08:14 Respiratory Rate 20 01/28/20 09:00 Blood Pressure 136/63 01/28/20 08:14 O2 Sat by Pulse Oximetry (%) 96 01/28/20 09:00 Constitutional: Yes: No Distress, Calm Eyes: Yes: Conjunctiva Clear, EOM Intact HENT: Yes: Atraumatic, Normocephalic Neck: Yes: Trachea Midline Cardiovascular: Yes: Regular Rate and Rhythm Respiratory: Yes: Rales (bilat bases) Gastrointestinal: Yes: Normal Bowel Sounds, Soft Extremities: Yes: WNL Edema: No Peripheral Pulses WNL: Yes Labs: CBC, BMP 01/27/20 06:50 01/28/20 05:53 INR, PTT INR 1.10 (0.83-1.09) H 01/25/20 14:50 Assessment/Plan 89 year-old, [place] Irish-speaking man, NHR, with a PMHx of long-standing persistent atrial fibrillation (on Eliquis), HTN, HLD, CKD, dementia sent from [facility] 01/25/20 for SOB and O2 desat to 84% on RA. The patient was noticed to have SOB 5 days ago as per his daughter and required NL O2 since than. His SOB worsened on the day of presentation. He was placed on NRB 15lpm with improvement to 100%. The patient appears shortness of breath and orthopnea during exam. He denies chest pain or palpitation. -EKG 01/25/20: Atrial fibrillation with slow ventricular response, 55bpm, QTc 407ms, IRBBB, no e/o acute ischemia -CXR 01/25/20: Cardiomegaly, congestive changes, bibasilar pleural effusions with atelectasis and/or infiltrates -Troponin 0.27-0.24; BNP 81776, K 5.6, BUN 39.1, Cr 2.0. ED bed side echo showed global hypokinesis, approx EF 5%, small pericardial effusion without tamponade. Recieved Zosyn for PNA Official echo 01/26/20: Severe concentric LVH with grossly normal LV systolic function. LVEF 50-55%. Moderate RV dilatation with mild hypokinesis. Mild to moderate LA and RA dilatation. Mild AI. Moderate TR. Severe pulm HTN, RVSP > 60 mmHg. 1) Acute diastolic CHF with evidence of RV dysfunction and severe pulm HTN (Pulm HTN is likely mixed Group 2: pulmonary hypertension due to left heart disease and Group 3: pulmonary hypertension due to lung disease and/or chronic hypoxia.): -Diuresis: Continue IV Lasix 40 mg twice daily with Metolazone. -Monitor renal function, electrolytes, Is&Os. -Continue Hydralazine 25 mg BID and Imdur 30 mg daily. 2) Elevated troponin. No symptoms of angina, likely type II [place]: Demand ischemia, not acute coronary syndrome. Troponin is trending down. 3) Long standing persistent atrial fibrillation with episodes of slow VR. Digoxin was discontinued. Continue Eliquis. stop aspirin. stable to DC telemetry. 4) Pneumonia, CKD as per primary team.
--- NOTE | 2020-01-28 11:21 | PN ---
Progress Note, Physician - Current Medication List Current Medications: Active Medications Albuterol/Ipratropium (Duoneb -) 1 amp NEB RQID [facility] Last Admin: 01/28/20 08:09 Dose: 1 amp Documented by: Allopurinol (Zyloprim -) 100 mg PO DAILY [facility] Last Admin: 01/28/20 09:01 Dose: 100 mg Documented by: Apixaban (Eliquis -) 2.5 mg PO BID [facility] Last Admin: 01/28/20 09:03 Dose: 2.5 mg Documented by: Aspirin (Asa -) 81 mg PO DAILY [facility] Last Admin: 01/28/20 09:01 Dose: 81 mg Documented by: Calcium Carbonate/Cholecalciferol (Os-Shar 500+D -) 1 tab PO DAILY [facility] Last Admin: 01/28/20 09:01 Dose: 1 tab Documented by: Escitalopram Oxalate (Lexapro -) 10 mg PO DAILY [facility] Last Admin: 01/28/20 09:01 Dose: 10 mg Documented by: Furosemide (Lasix Injection -) 40 mg IVPUSH BID@0600,1400 [facility] Last Admin: 01/28/20 06:10 Dose: 40 mg Documented by: Hydralazine HCl (Apresoline -) 25 mg PO BID [facility] Last Admin: 01/28/20 09:01 Dose: 25 mg Documented by: Azithromycin (Zithromax 500mg Ivpb (Pre-Docked)) 500 mg in 250 mls @ 250 mls/hr IVPB DAILY [facility] Last Admin: 01/28/20 09:02 Dose: 250 mls/hr Documented by: Piperacillin Sod/Tazobactam (Sod 2.25 gm/ Dextrose) 50 mls @ 100 mls/hr IVPB Q8H-IV [facility]; Protocol Last Admin: 01/28/20 09:02 Dose: 100 mls/hr Documented by: Potassium Chloride (Potassium Chloride 10 Meq Premix Ivpb -) 10 meq in 100 mls @ 100 mls/hr IVPB Q60M [facility] Stop: 01/28/20 11:44 Isosorbide Mononitrate (Imdur -) 30 mg PO DAILY [facility] Last Admin: 01/28/20 09:01 Dose: 30 mg Documented by: Memantine (Namenda -) 10 mg PO BID [facility] Last Admin: 01/28/20 09:03 Dose: 10 mg Documented by: Metolazone (Zaroxolyn -) 2.5 mg PO DAILY [facility] Last Admin: 01/28/20 09:02 Dose: 2.5 mg Documented by: Multivitamins/Minerals/Vitamin C (Tab-A-Vit -) 1 tab PO DAILY [facility] Last Admin: 01/28/20 09:01 Dose: 1 tab Documented by: - Objective Vital Signs: Vital Signs Temperature 97.8 F 01/28/20 08:14 Pulse Rate 66 01/28/20 08:14 Respiratory Rate 20 01/28/20 09:00 Blood Pressure 136/63 01/28/20 08:14 O2 Sat by Pulse Oximetry (%) 96 01/28/20 09:00 Cardiovascular: Yes: S1, S2 Respiratory: Yes: Regular, CTA Bilaterally Gastrointestinal: Yes: Normal Bowel Sounds, Soft Edema: No Labs: CBC, BMP 01/27/20 06:50 01/28/20 05:53 INR, PTT INR 1.10 (0.83-1.09) H 01/25/20 14:50 Problem List - Problems (1) Pneumonia Assessment/Plan: iv abx id consult noted cxr Code(s): J18.9 - PNEUMONIA, UNSPECIFIED ORGANISM (2) A-fib Assessment/Plan: on eliquis rate controlled Code(s): I48.91 - UNSPECIFIED ATRIAL FIBRILLATION (3) CHF (congestive heart failure) Assessment/Plan: IV LASIX AND LYTES CXR 01/26 CHF CXR AM Code(s): I50.9 - HEART FAILURE, UNSPECIFIED (4) Renal insufficiency Assessment/Plan: renal on board Code(s): N28.9 - DISORDER OF KIDNEY AND URETER, UNSPECIFIED
--- NOTE | 2020-01-28 12:06 | PN ---
Progress Note (short form) - Note Progress Note: transferred to private room for MRSA from hand wound no fevers blood cultures from admission are negative hand no erythema or drainage cor-rrr lungs decreased bs at bases abd soft,nt ext no edema CBC, BMP 01/27/20 06:50 01/28/20 05:53 Microbiology 01/25/20 16:20 Hand - Left Gram Stain - Final 01/25/20 16:20 Hand - Left Wound Culture - Final S Aureus 01/25/20 15:00 Blood - Peripheral Venous Blood Culture - Preliminary NO GROWTH OBTAINED AFTER 48 HOURS, INCUBATION TO CONTINUE FOR 3 DAYS. 01/25/20 14:50 Blood - Peripheral Venous Blood Culture - Preliminary NO GROWTH OBTAINED AFTER 48 HOURS, INCUBATION TO CONTINUE FOR 3 DAYS. 01/25/20 14:36 Urine - Urine - Catheterized Urine Culture - Final NO GROWTH OBTAINED a/p on zosyn/zith for possible pneumonia CHF/afib- per cardiology mrsa hand infection?- no signs systemic disease, no purulence or cellulitis, will add mupirocin check legionella antigen- d/c zithromax if negative
--- NOTE | 2020-01-28 12:14 | PN ---
Progress Note (short form) - Note Progress Note: PULMONARY VSS/AFEBRILE [place]/Dementia/Mrsa hand wound General: Well developed. Chronic ill in appearance Head: Normocephalic Eyes: Sclerae anicteric. Neck: Supple. (+) JVD. No bruits. Heart: Normal S1, S2: Irregular Lungs: Symmetrical poor air entry. Bibasilar crackles Abdomen: Soft. Bowel sound positive. Non tender. Extremities: Trace edema CHART/LABS/MEDS/NOTES/IMAGES/CARDIO EVAL REVIEWED IMP ACUTE HYPOXEMIC RESPIRATORY FAILURE ACUTE CHF/PULMONARY EDEMA ELEVATED TROPONIN LEVEL AFIB HTN DM ACUTE ON CKD DEMENTIA MRSA hand wound PLAN ANTIBIOTICS PER ID IV LASIX SUPPLEMENTAL O2 NIPPV NEEDED FOR INCREASED RESPIRATORY DISTRESS DAILY WTS MONITOR LYTES,RENAL FUNCTION TREND TROPONINS RATE CONTROL F/U CHEST X-RAYS Rosario HAYNES MD
[2020-01-28] MEDS: MUPIROCIN CA 2% TOPICAL CREAM 15 GM TUBE TP SCH ×2 (15:35→21:53)
--- NOTE | 2020-01-28 16:47 | PN ---
Progress Note, Physician History of Present Illness: Pt seen and examined at bedside. He is awake but confused. - Current Medication List Current Medications: Active Medications Albuterol/Ipratropium (Duoneb -) 1 amp NEB RQID [facility] Last Admin: 01/28/20 15:48 Dose: 1 amp Documented by: Allopurinol (Zyloprim -) 100 mg PO DAILY [facility] Last Admin: 01/28/20 09:01 Dose: 100 mg Documented by: Apixaban (Eliquis -) 2.5 mg PO BID [facility] Last Admin: 01/28/20 09:03 Dose: 2.5 mg Documented by: Aspirin (Asa -) 81 mg PO DAILY [facility] Last Admin: 01/28/20 09:01 Dose: 81 mg Documented by: Calcium Carbonate/Cholecalciferol (Os-Shar 500+D -) 1 tab PO DAILY [facility] Last Admin: 01/28/20 09:01 Dose: 1 tab Documented by: Escitalopram Oxalate (Lexapro -) 10 mg PO DAILY [facility] Last Admin: 01/28/20 09:01 Dose: 10 mg Documented by: Furosemide (Lasix Injection -) 40 mg IVPUSH BID@0600,1400 [facility] Last Admin: 01/28/20 15:10 Dose: 40 mg Documented by: Hydralazine HCl (Apresoline -) 25 mg PO BID [facility] Last Admin: 01/28/20 09:01 Dose: 25 mg Documented by: Azithromycin (Zithromax 500mg Ivpb (Pre-Docked)) 500 mg in 250 mls @ 250 mls/hr IVPB DAILY [facility] Last Admin: 01/28/20 09:02 Dose: 250 mls/hr Documented by: Piperacillin Sod/Tazobactam (Sod 2.25 gm/ Dextrose) 50 mls @ 100 mls/hr IVPB Q8H-IV [facility]; Protocol Last Admin: 01/28/20 09:02 Dose: 100 mls/hr Documented by: Isosorbide Mononitrate (Imdur -) 30 mg PO DAILY [facility] Last Admin: 01/28/20 09:01 Dose: 30 mg Documented by: Memantine (Namenda -) 10 mg PO BID [facility] Last Admin: 01/28/20 09:03 Dose: 10 mg Documented by: Metolazone (Zaroxolyn -) 2.5 mg PO DAILY [facility] Last Admin: 01/28/20 09:02 Dose: 2.5 mg Documented by: Multivitamins/Minerals/Vitamin C (Tab-A-Vit -) 1 tab PO DAILY [facility] Last Admin: 01/28/20 09:01 Dose: 1 tab Documented by: Mupirocin (Bactroban 2% Cream -) 1 applic TP BID [facility] - Objective Vital Signs: Vital Signs Temperature 97.7 F 01/28/20 14:00 Pulse Rate 80 01/28/20 14:00 Respiratory Rate 20 01/28/20 14:00 Blood Pressure 114/70 01/28/20 14:00 O2 Sat by Pulse Oximetry (%) 96 01/28/20 09:00 Constitutional: Yes: Calm Eyes: Yes: Conjunctiva Clear HENT: Yes: Atraumatic Cardiovascular: Yes: S1, S2 Respiratory: Yes: CTA Bilaterally Gastrointestinal: Yes: Normal Bowel Sounds, Soft Genitourinary: Yes: WNL Musculoskeletal: Yes: WNL Edema: No Neurological: Yes: Confusion Labs: CBC, BMP 01/27/20 06:50 01/28/20 05:53 INR, PTT INR 1.10 (0.83-1.09) H 01/25/20 14:50 Assessment/Plan Current Medications Generic Name Dose Route Start Last Admin Trade Name Kevinq PRN Reason Stop Dose Admin Albuterol/Ipratropium 1 amp 01/25/20 20:00 01/28/20 15:48 Duoneb - NEB 1 amp RQID [facility] Administration Allopurinol 100 mg 01/26/20 10:00 01/28/20 09:01 Zyloprim - PO 100 mg DAILY [facility] Administration Apixaban 2.5 mg 01/25/20 22:30 01/28/20 09:03 Eliquis - PO 2.5 mg BID [facility] Administration Aspirin 81 mg 01/26/20 10:00 01/28/20 09:01 Asa - PO 81 mg DAILY [facility] Administration Calcium Carbonate/Cholecalciferol 1 tab 01/26/20 10:00 01/28/20 09:01 Os-Shar 500+D - PO 1 tab DAILY [facility] Administration Escitalopram Oxalate 10 mg 01/26/20 10:00 01/28/20 09:01 Lexapro - PO 10 mg DAILY [facility] Administration Furosemide 40 mg 01/26/20 06:00 01/28/20 15:10 Lasix Injection - IVPUSH 40 mg BID@0600,1400 [facility] Administration Hydralazine HCl 25 mg 01/26/20 10:00 01/28/20 09:01 Apresoline - PO 25 mg BID [facility] Administration Azithromycin 500 mg in 250 mls @ 250 mls/hr 01/26/20 10:00 01/28/20 09:02 Zithromax 500mg Ivpb (Pre-Docked) IVPB 250 mls/hr DAILY [facility] Administration Piperacillin Sod/Tazobactam 50 mls @ 100 mls/hr 01/26/20 18:00 01/28/20 09:02 Sod 2.25 gm/ Dextrose IVPB 100 mls/hr Q8H-IV [facility] Administration Protocol Isosorbide Mononitrate 30 mg 01/26/20 10:00 01/28/20 09:01 Imdur - PO 30 mg DAILY [facility] Administration Memantine 10 mg 01/25/20 22:30 01/28/20 09:03 Namenda - PO 10 mg BID [facility] Administration Metolazone 2.5 mg 01/26/20 10:00 01/28/20 09:02 Zaroxolyn - PO 2.5 mg DAILY [facility] Administration Multivitamins/Minerals/Vitamin C 1 tab 01/26/20 10:00 01/28/20 09:01 Tab-A-Vit - PO 1 tab DAILY [facility] Administration Mupirocin 1 applic 01/28/20 13:15 Bactroban 2% Cream - TP BID [facility] 1. Acute heart failure 2. CKD 3. Fluid overload 4. Hypoxic respiratroy failure 5. hypertension 6. hyperlpidemia 7. 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
[2020-01-28] MEDS ORDERED: PT OWN MED DRAWER 7, Y5N ONE (16:48)
[2020-01-29] MEDS: PIPERACILLIN/TAZOB 2.25 GM 2.25 GM in DEXTROSE 5%-WATER - 50 ML IVPB SCH ×3 (02:00→19:04)
[2020-01-29] MEDS ORDERED: DEXTROSE 5%-WATER - 50 ML IVPB ONE ×3 (02:17→17:44)
[2020-01-29] MEDS ORDERED: PIPERACILLIN/TAZOBACTAM 2.25 GM VIAL IVPB ONE ×3 (02:17→17:44)
[2020-01-29] MEDS: FUROSEMIDE 40 MG/4 ML INJECTABLE VIAL IVPUSH SCH ×2 (06:53→13:46)
[2020-01-29] MEDS: ALBUTEROL SO4 2.5/IPRATROPIUM 0.5 INH SOL 3 ML VIAL.NEB. NEB SCH ×4 (08:40→20:20)
[2020-01-29] MEDS ORDERED: PT OWN MED DRAWER 7, Y5N ONE (11:57)
--- NOTE | 2020-01-29 11:57 | PN ---
<Pal Gloria - Last Filed: 01/29/20 16:00> Physical Exam: Cardiology Service Proxy - Eneida Jeffery [phone] SUBJECTIVE: Patient seen and examined at bedside with the help of physical chemistry professor. Pt feels very well. Much improved. OBJECTIVE: Vital Signs Period Temp Pulse Resp BP Sys/Llanos Pulse Ox Last 24 Hr 97.6 F-98.2 F 74-104 20-20 110-151/52-95 92 Gen: Awake, alert, oriented to self HEENT: NCAT, EOMI, poor oral hygiene Neck: no bruits, no jvd, central trachea, no LAD noted Cario: irregular rhythm, normal rate, preserved s1s2, prominent 3/6 systolic murmur LLSB, no rubs/gallops noted Pulm: no basilar crackles noted. clear lungs Abd: soft, nontender, normal bs Ext: L hand with dressing for wound. No pedal edema Laboratory Results - last 24 hr 01/26/20 01/27/20 01/29/20 08:45 08:45 05:21 POC Glucometer 97 Ur Random Creatinine 16.2 L U Random Total Protein 5.6 Ur Random Urea Nitrogn 198 L Urine Creatinine 16.0 L Protein/Creatinin Ratio 0.4 Active Medications Generic Name Dose Route Start Last Admin Trade Name Claudia PRN Reason Stop Dose Admin Albuterol/Ipratropium 1 amp 01/25/20 20:00 01/29/20 08:40 Duoneb - NEB 1 amp RQID [facility] Administration Allopurinol 100 mg 01/26/20 10:00 01/28/20 09:01 Zyloprim - PO 100 mg DAILY [facility] Administration Apixaban 2.5 mg 01/25/20 22:30 01/28/20 21:52 Eliquis - PO 2.5 mg BID [facility] Administration Aspirin 81 mg 01/26/20 10:00 01/28/20 09:01 Asa - PO 81 mg DAILY [facility] Administration Calcium Carbonate/Cholecalciferol 1 tab 01/26/20 10:00 01/28/20 09:01 Os-Shar 500+D - PO 1 tab DAILY [facility] Administration Escitalopram Oxalate 10 mg 01/26/20 10:00 01/28/20 09:01 Lexapro - PO 10 mg DAILY [facility] Administration Furosemide 40 mg 01/26/20 06:00 01/29/20 06:53 Lasix Injection - IVPUSH 40 mg BID@0600,1400 [facility] Administration Hydralazine HCl 25 mg 01/26/20 10:00 01/28/20 21:51 Apresoline - PO 25 mg BID [facility] Administration Azithromycin 500 mg in 250 mls @ 250 mls/hr 01/26/20 10:00 01/28/20 09:02 Zithromax 500mg Ivpb (Pre-Docked) IVPB 250 mls/hr DAILY [facility] Administration Piperacillin Sod/Tazobactam 50 mls @ 100 mls/hr 01/26/20 18:00 01/29/20 02:00 Sod 2.25 gm/ Dextrose IVPB 100 mls/hr Q8H-IV [facility] Administration Protocol Isosorbide Mononitrate 30 mg 01/26/20 10:00 01/28/20 09:01 Imdur - PO 30 mg DAILY [facility] Administration Memantine 10 mg 01/25/20 22:30 01/28/20 21:51 Namenda - PO 10 mg BID [facility] Administration Metolazone 2.5 mg 01/26/20 10:00 01/28/20 09:02 Zaroxolyn - PO 2.5 mg DAILY [facility] Administration Multivitamins/Minerals/Vitamin C 1 tab 01/26/20 10:00 01/28/20 09:01 Tab-A-Vit - PO 1 tab DAILY [facility] Administration Mupirocin 1 applic 01/28/20 13:15 01/28/20 21:53 Bactroban 2% Cream - TP 1 applic BID [facility] Administration Official echo 01/26/20: Severe concentric LVH with grossly normal LV systolic function. LVEF 50-55%. Moderate RV dilatation with mild hypokinesis. Mild to moderate LA and RA dilatation. Mild AI. Moderate TR. Severe pulm HTN, RVSP > 60 mmHg. ASSESSMENT/PLAN: Pt is an 89 y/o [place]-speaking male from [facility] with a PMHx of Afib (on metoprolol ER 25 and eliquis), Chronic Renal Insufficiency, Dementia (baseline alert and oriented only to name), HLD, HTN, CHF. He presented to ED with complaint of SOB and was found to be desaturating in ED. He was admitted for CHF exacerbation ? 2/2 PNA. HFpEF exacerbation with Group II pulm HTN -has been diuresed adequately. At this time, no jvd, pulmonary crackles, or pedal edema -on lasix 40 bid. Unclear output, but appears euvolemic at this time -EF 55% per official echo 01/26/20 (see above) -CXR with bibasilar effusions, cardiomegally, congestion, ? infiltrate -c/w hydralazine, imdur, metolazone Elevated trop -unlikely ACS. Likely 2/2 demand -has peaked Chronic AF -on metoprolol and eliquis -home meds. metoprolol held in ED. -no rapid/slow AF at this time. 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 Possibly 2/2 diuresis -trend Mild macrocytic anemia, thrombocytopenia -likely 2/2 ckd -recommend checking b12, folate Alk Phos -recommend GGT to r/o bone contribution Visit type - Emergency Visit Emergency Visit: No - New Patient This patient is new to me today: Yes Date on this admission: 01/29/20 - Critical Care Critical Care patient: No ATTENDING PHYSICIAN STATEMENT I saw and evaluated the patient. I reviewed the resident's note and discussed the case with the resident. I agree with the resident's findings and plan as documented. SUBJECTIVE: OBJECTIVE: ASSESSMENT AND PLAN: <Wellington Barrera - Last Filed: 01/29/20 16:03> Physical Exam: SUBJECTIVE: Patient seen and examined OBJECTIVE: Vital Signs Period Temp Pulse Resp BP Sys/Llanos Pulse Ox Last 24 Hr 97.6 F-98.2 F 74-104 20-20 110-151/52-95 92-96 GENERAL: The patient is awake, alert, and fully oriented, in no acute distress. HEAD: Normal with no signs of trauma. EYES: PERRL, extraocular movements intact, sclera anicteric, conjunctiva clear. No ptosis. ENT: Ears normal, nares patent, oropharynx clear without exudates, moist mucous membranes. NECK: Trachea midline, full range of motion, supple. LUNGS: Breath sounds equal, clear to auscultation bilaterally, no wheezes, no crackles, no accessory muscle use. HEART: Regular rate and rhythm, S1, S2 without murmur, rub or gallop. ABDOMEN: Soft, nontender, nondistended, normoactive bowel sounds, no guarding, no rebound, no hepatosplenomegaly, no masses. EXTREMITIES: 2+ pulses, warm, well-perfused, no edema. NEUROLOGICAL: Cranial nerves II through XII grossly intact. Normal speech, gait not observed. PSYCH: Normal mood, normal affect. SKIN: Warm, dry, normal turgor, no rashes or lesions noted Laboratory Results - last 24 hr 01/29/20 01/29/20 01/29/20 05:21 11:55 13:36 Sodium 140 Potassium 3.1 L Chloride 99 Carbon Dioxide 32 Anion Gap 9 BUN 39.1 H Creatinine 2.1 H Est GFR (CKD-EPI)AfAm 31.62 Est GFR (CKD-EPI)NonAf 27.28 POC Glucometer 97 157 Random Glucose 106 Calcium 8.9 Active Medications Generic Name Dose Route Start Last Admin Trade Name Freq PRN Reason Stop Dose Admin Albuterol/Ipratropium 1 amp 01/25/20 20:00 01/29/20 11:11 Duoneb - NEB 1 amp RQID [facility] Administration Allopurinol 100 mg 01/26/20 10:00 01/29/20 12:01 Zyloprim - PO 100 mg DAILY [facility] Administration Apixaban 2.5 mg 01/25/20 22:30 01/29/20 12:02 Eliquis - PO 2.5 mg BID [facility] Administration Aspirin 81 mg 01/26/20 10:00 01/29/20 12:01 Asa - PO 81 mg DAILY [facility] Administration Calcium Carbonate/Cholecalciferol 1 tab 01/26/20 10:00 01/29/20 12:01 Os-Shar 500+D - PO 1 tab DAILY [facility] Administration Escitalopram Oxalate 10 mg 01/26/20 10:00 01/29/20 12:02 Lexapro - PO 10 mg DAILY [facility] Administration Furosemide 40 mg 01/26/20 06:00 01/29/20 13:46 Lasix Injection - IVPUSH 40 mg BID@0600,1400 [facility] Administration Hydralazine HCl 25 mg 01/26/20 10:00 01/29/20 12:02 Apresoline - PO 25 mg BID [facility] Administration Azithromycin 500 mg in 250 mls @ 250 mls/hr 01/26/20 10:00 01/29/20 12:02 Zithromax 500mg Ivpb (Pre-Docked) IVPB 250 mls/hr DAILY [facility] Administration Piperacillin Sod/Tazobactam 50 mls @ 100 mls/hr 01/26/20 18:00 01/29/20 12:02 Sod 2.25 gm/ Dextrose IVPB 100 mls/hr Q8H-IV [facility] Administration Protocol Isosorbide Mononitrate 30 mg 01/26/20 10:00 01/29/20 12:02 Imdur - PO 30 mg DAILY [facility] Administration Memantine 10 mg 01/25/20 22:30 01/29/20 12:02 Namenda - PO 10 mg BID [facility] Administration Metolazone 2.5 mg 01/26/20 10:00 01/29/20 12:03 Zaroxolyn - PO 2.5 mg DAILY [facility] Administration Multivitamins/Minerals/Vitamin C 1 tab 01/26/20 10:00 01/29/20 12:02 Tab-A-Vit - PO 1 tab DAILY [facility] Administration Mupirocin 1 applic 01/28/20 13:15 01/29/20 13:45 Bactroban 2% Cream - TP 1 applic BID [facility] Administration ASSESSMENT/PLAN: ATTENDING PHYSICIAN STATEMENT I saw and evaluated the patient. I reviewed the resident's note and discussed the case with the resident. I agree with the resident's findings and plan as documented. SUBJECTIVE: Improved respiratory symptoms. Laying flat. OBJECTIVE: CTA no edema ASSESSMENT AND PLAN: Transition to oral diuretics Lasix 40mg po BID Metolazone 2.5mg daily.
[2020-01-29] MEDS: ALLOPURINOL 100 MG TABLET (FP) PO SCH (12:01)
[2020-01-29] MEDS: ASPIRIN 81 MG CHEWABLE TABLETS PO SCH (12:01)
[2020-01-29] MEDS: CALCIUM 500MG/VIT-D 200 UNITS COMBO TABLET (FP) PO SCH (12:01)
[2020-01-29] MEDS: MULTIVITAMINS (DAILY MVI) TABLET (FP) PO SCH (12:02)
[2020-01-29] MEDS: ISOSORBIDE MONONITRATE 30 MG TAB.SR.24H (FP) PO SCH (12:02)
[2020-01-29] MEDS: APIXABAN 2.5 MG TABLET PO SCH ×2 (12:02→22:23)
[2020-01-29] MEDS: AZITHROMYCIN IVPB 500 MG/250 ML BAG IVPB SCH (12:02)
[2020-01-29] MEDS: ESCITALOPRAM OXALATE 10 MG TABLET PO SCH (12:02)
[2020-01-29] MEDS: MEMANTINE HCL 10 MG TABLET (FP) PO SCH ×2 (12:02→22:23)
[2020-01-29] MEDS: hydrALAZINE HCL 25 MG TABLET (FP) PO SCH ×2 (12:02→22:23)
[2020-01-29] MEDS: METOLAZONE 2.5 MG TABLET (FP) PO SCH (12:03)
--- NOTE | 2020-01-29 12:59 | PN ---
Progress Note (short form) - Note Progress Note: PULMONARY Denies shortness of breath, cough or wheeze. Vital Signs Period Temp Pulse Resp BP Sys/Llanos Pulse Ox Last 24 Hr 97.6 F-98.2 F 74-104 20-20 110-151/52-95 92-96 Gen: NAD at rest Heart: RRR Lung: decreased breath sounds at the bases Abd: soft, nontender Ext: no edema CBC, BMP 01/27/20 06:50 01/28/20 05:53 Active Medications Albuterol/Ipratropium (Duoneb -) 1 amp NEB RQID [facility] Last Admin: 01/29/20 08:40 Dose: 1 amp Documented by: Allopurinol (Zyloprim -) 100 mg PO DAILY [facility] Last Admin: 01/29/20 12:01 Dose: 100 mg Documented by: Apixaban (Eliquis -) 2.5 mg PO BID [facility] Last Admin: 01/29/20 12:02 Dose: 2.5 mg Documented by: Aspirin (Asa -) 81 mg PO DAILY [facility] Last Admin: 01/29/20 12:01 Dose: 81 mg Documented by: Calcium Carbonate/Cholecalciferol (Os-Shar 500+D -) 1 tab PO DAILY [facility] Last Admin: 01/29/20 12:01 Dose: 1 tab Documented by: Escitalopram Oxalate (Lexapro -) 10 mg PO DAILY [facility] Last Admin: 01/29/20 12:02 Dose: 10 mg Documented by: Furosemide (Lasix Injection -) 40 mg IVPUSH BID@0600,1400 [facility] Last Admin: 01/29/20 06:53 Dose: 40 mg Documented by: Hydralazine HCl (Apresoline -) 25 mg PO BID [facility] Last Admin: 01/29/20 12:02 Dose: 25 mg Documented by: Azithromycin (Zithromax 500mg Ivpb (Pre-Docked)) 500 mg in 250 mls @ 250 mls/hr IVPB DAILY [facility] Last Admin: 01/29/20 12:02 Dose: 250 mls/hr Documented by: Piperacillin Sod/Tazobactam (Sod 2.25 gm/ Dextrose) 50 mls @ 100 mls/hr IVPB Q8H-IV [facility]; Protocol Last Admin: 01/29/20 12:02 Dose: 100 mls/hr Documented by: Isosorbide Mononitrate (Imdur -) 30 mg PO DAILY [facility] Last Admin: 01/29/20 12:02 Dose: 30 mg Documented by: Memantine (Namenda -) 10 mg PO BID [facility] Last Admin: 01/29/20 12:02 Dose: 10 mg Documented by: Metolazone (Zaroxolyn -) 2.5 mg PO DAILY [facility] Last Admin: 01/29/20 12:03 Dose: 2.5 mg Documented by: Multivitamins/Minerals/Vitamin C (Tab-A-Vit -) 1 tab PO DAILY [facility] Last Admin: 01/29/20 12:02 Dose: 1 tab Documented by: Mupirocin (Bactroban 2% Cream -) 1 applic TP BID [facility] Last Admin: 01/28/20 21:53 Dose: 1 applic Documented by: A/P Acute Hypoxic Respiratory Failure Acute on Chronic Diastolic Heart Failure Pulmonary HTN +Troponins likely Demand Ischemia Atrial Fibrillation Acute on Chronic Renal Failure HTN DM Dementia - continue lasix, zaroxolyn - monitor urine output, creatinine - daily weights - O2 to keep SpO2 >90% - rate control - continue anticoagulation
[2020-01-29 13:37] LABS: BLOOD UREA NITROGEN 39.1 mg/dL (7-18); CALCIUM 8.9 mg/dL (8.5-10.1); CREATININE 2.1 mg/dL (0.55-1.3); POTASSIUM 3.1 mmol/L (3.5-5.1)
[2020-01-29] MEDS: MUPIROCIN CA 2% TOPICAL CREAM 15 GM TUBE TP SCH ×2 (13:45→22:23)
[2020-01-29] MEDS ORDERED: POTASSIUM CHLORIDE TABS 20 MEQ TABLET.ER (FP) PO ONE (16:15)
--- NOTE | 2020-01-29 17:11 | PN ---
Progress Note, Physician Chief Complaint: sob History of Present Illness: 89 year old [place] male with PMH Afib, chronic kidney disease, dementia, htn, hld, chf [facility] ED with SOB, being consulted by ID, renal, and pulm. - Current Medication List Current Medications: Active Medications Albuterol/Ipratropium (Duoneb -) 1 amp NEB RQID [facility] Last Admin: 01/29/20 16:02 Dose: 1 amp Documented by: Allopurinol (Zyloprim -) 100 mg PO DAILY [facility] Last Admin: 01/29/20 12:01 Dose: 100 mg Documented by: Apixaban (Eliquis -) 2.5 mg PO BID [facility] Last Admin: 01/29/20 12:02 Dose: 2.5 mg Documented by: Aspirin (Asa -) 81 mg PO DAILY [facility] Last Admin: 01/29/20 12:01 Dose: 81 mg Documented by: Calcium Carbonate/Cholecalciferol (Os-Shar 500+D -) 1 tab PO DAILY [facility] Last Admin: 01/29/20 12:01 Dose: 1 tab Documented by: Escitalopram Oxalate (Lexapro -) 10 mg PO DAILY [facility] Last Admin: 01/29/20 12:02 Dose: 10 mg Documented by: Furosemide (Lasix Injection -) 40 mg IVPUSH BID@0600,1400 [facility] Last Admin: 01/29/20 13:46 Dose: 40 mg Documented by: Hydralazine HCl (Apresoline -) 25 mg PO BID [facility] Last Admin: 01/29/20 12:02 Dose: 25 mg Documented by: Azithromycin (Zithromax 500mg Ivpb (Pre-Docked)) 500 mg in 250 mls @ 250 mls/hr IVPB DAILY [facility] Last Admin: 01/29/20 12:02 Dose: 250 mls/hr Documented by: Piperacillin Sod/Tazobactam (Sod 2.25 gm/ Dextrose) 50 mls @ 100 mls/hr IVPB Q8H-IV [facility]; Protocol Last Admin: 01/29/20 12:02 Dose: 100 mls/hr Documented by: Isosorbide Mononitrate (Imdur -) 30 mg PO DAILY [facility] Last Admin: 01/29/20 12:02 Dose: 30 mg Documented by: Memantine (Namenda -) 10 mg PO BID [facility] Last Admin: 01/29/20 12:02 Dose: 10 mg Documented by: Metolazone (Zaroxolyn -) 2.5 mg PO DAILY [facility] Last Admin: 01/29/20 12:03 Dose: 2.5 mg Documented by: Multivitamins/Minerals/Vitamin C (Tab-A-Vit -) 1 tab PO DAILY [facility] Last Admin: 01/29/20 12:02 Dose: 1 tab Documented by: Mupirocin (Bactroban 2% Cream -) 1 applic TP BID [facility] Last Admin: 01/29/20 13:45 Dose: 1 applic Documented by: - Objective Vital Signs: Vital Signs Temperature 98.2 F 01/29/20 14:38 Pulse Rate 89 01/29/20 14:38 Respiratory Rate 20 01/29/20 14:38 Blood Pressure 129/75 01/29/20 14:38 O2 Sat by Pulse Oximetry (%) 96 01/29/20 09:00 Constitutional: Yes: Well Nourished, No Distress HENT: Yes: Atraumatic, Normocephalic Neck: Yes: Supple Cardiovascular: Yes: Pulse Irregular Respiratory: Yes: Regular, CTA Bilaterally Gastrointestinal: Yes: Normal Bowel Sounds, Soft Musculoskeletal: Yes: WNL Extremities: Yes: WNL Neurological: Yes: Alert, Other (dementia) Labs: CBC, BMP 01/27/20 06:50 01/29/20 11:55 INR, PTT INR 1.10 (0.83-1.09) H 01/25/20 14:50 Problem List - Problems (1) A-fib Assessment/Plan: cardiology following rate control continue eliquis Code(s): I48.91 - UNSPECIFIED ATRIAL FIBRILLATION (2) Acute respiratory failure with hypoxia Assessment/Plan: off oxygen pulm following Code(s): J96.01 - ACUTE RESPIRATORY FAILURE WITH HYPOXIA (3) CHF exacerbation Assessment/Plan: lasix, metolazone per cardiology I & O daily weights Code(s): I50.9 - HEART FAILURE, UNSPECIFIED (4) Chronic kidney disease Assessment/Plan: nephrology following Code(s): N18.9 - CHRONIC KIDNEY DISEASE, UNSPECIFIED (5) Pneumonia Assessment/Plan: ID following azithro/zosyn Code(s): J18.9 - PNEUMONIA, UNSPECIFIED ORGANISM (6) Dementia Assessment/Plan: cont safety measures Code(s): F03.90 - UNSPECIFIED DEMENTIA WITHOUT BEHAVIORAL DISTURBANCE (7) HLD (hyperlipidemia) Assessment/Plan: cotn home meds Code(s): E78.5 - HYPERLIPIDEMIA, UNSPECIFIED (8) HTN (hypertension) Assessment/Plan: cont home meds Code(s): I10 - ESSENTIAL (PRIMARY) HYPERTENSION Assessment/Plan dispo to sigifredo galvan when stable
--- NOTE | 2020-01-29 21:35 | PN ---
Progress Note, Physician History of Present Illness: AWAKE, CONFUSED NO ACUTE DISTRESS BREATHING NON LABORED AFEBRILE - Current Medication List Current Medications: Active Medications Albuterol/Ipratropium (Duoneb -) 1 amp NEB RQID [facility] Last Admin: 01/29/20 16:02 Dose: 1 amp Documented by: Allopurinol (Zyloprim -) 100 mg PO DAILY [facility] Last Admin: 01/29/20 12:01 Dose: 100 mg Documented by: Apixaban (Eliquis -) 2.5 mg PO BID [facility] Last Admin: 01/29/20 12:02 Dose: 2.5 mg Documented by: Aspirin (Asa -) 81 mg PO DAILY [facility] Last Admin: 01/29/20 12:01 Dose: 81 mg Documented by: Calcium Carbonate/Cholecalciferol (Os-Shar 500+D -) 1 tab PO DAILY [facility] Last Admin: 01/29/20 12:01 Dose: 1 tab Documented by: Escitalopram Oxalate (Lexapro -) 10 mg PO DAILY [facility] Last Admin: 01/29/20 12:02 Dose: 10 mg Documented by: Furosemide (Lasix Injection -) 40 mg IVPUSH BID@0600,1400 [facility] Last Admin: 01/29/20 13:46 Dose: 40 mg Documented by: Hydralazine HCl (Apresoline -) 25 mg PO BID [facility] Last Admin: 01/29/20 12:02 Dose: 25 mg Documented by: Azithromycin (Zithromax 500mg Ivpb (Pre-Docked)) 500 mg in 250 mls @ 250 mls/hr IVPB DAILY [facility] Last Admin: 01/29/20 12:02 Dose: 250 mls/hr Documented by: Piperacillin Sod/Tazobactam (Sod 2.25 gm/ Dextrose) 50 mls @ 100 mls/hr IVPB Q8H-IV [facility]; Protocol Last Admin: 01/29/20 19:04 Dose: 100 mls/hr Documented by: Isosorbide Mononitrate (Imdur -) 30 mg PO DAILY [facility] Last Admin: 01/29/20 12:02 Dose: 30 mg Documented by: Memantine (Namenda -) 10 mg PO BID [facility] Last Admin: 01/29/20 12:02 Dose: 10 mg Documented by: Metolazone (Zaroxolyn -) 2.5 mg PO DAILY [facility] Last Admin: 01/29/20 12:03 Dose: 2.5 mg Documented by: Multivitamins/Minerals/Vitamin C (Tab-A-Vit -) 1 tab PO DAILY [facility] Last Admin: 01/29/20 12:02 Dose: 1 tab Documented by: Mupirocin (Bactroban 2% Cream -) 1 applic TP BID [facility] Last Admin: 01/29/20 13:45 Dose: 1 applic Documented by: - Objective Vital Signs: Vital Signs Temperature 98.7 F 01/29/20 18:00 Pulse Rate 74 01/29/20 18:00 Respiratory Rate 20 01/29/20 18:00 Blood Pressure 118/57 L 01/29/20 18:00 O2 Sat by Pulse Oximetry (%) 96 01/29/20 09:00 Constitutional: Yes: No Distress Cardiovascular: Yes: Regular Rate and Rhythm, S1, S2 Respiratory: Yes: Diminished Gastrointestinal: Yes: Normal Bowel Sounds, Soft. No: Tenderness Edema: No Labs: CBC, BMP 01/27/20 06:50 01/29/20 11:55 INR, PTT INR 1.10 (0.83-1.09) H 01/25/20 14:50 Assessment/Plan CHF R/O PNEUMONIA THROMBOCYTOPENIA IMPROVED AZOTEMIA CONTINUE EMPIRIC ZOSYN, ADJUSTED FOR RENAL FAILURE
[2020-01-30] MEDS ORDERED: PIPERACILLIN/TAZOBACTAM 2.25 GM VIAL IVPB ONE ×3 (02:28→17:20)
[2020-01-30] MEDS ORDERED: DEXTROSE 5%-WATER - 50 ML IVPB ONE ×3 (02:28→17:20)
[2020-01-30] MEDS: PIPERACILLIN/TAZOB 2.25 GM 2.25 GM in DEXTROSE 5%-WATER - 50 ML IVPB SCH ×3 (02:54→17:28)
[2020-01-30] MEDS: FUROSEMIDE 40 MG/4 ML INJECTABLE VIAL IVPUSH SCH (06:24)
[2020-01-30 07:21] LABS: BASO % 1.2 % (0-2.0); EOS % 7.1 % (0-4.5); HEMATOCRIT 34.5 % (35.4-49); HEMOGLOBIN 11.4 GM/dL (11.7-16.9); LYMPH % 9.4 % (8-40); MCH 31.3 pg (25.7-33.7); MCHC 32.9 g/dl (32.0-35.9); MEAN CELL VOLUME 95.1 fl (80-96); MEAN PLT VOLUME 8.5 fl (7.5-11.1); MONO % 11.2 % (3.8-10.2); NEUT % 71.1 % (42.8-82.8); PLATELET COUNT 132 K/MM3 (134-434); RBC 3.63 M/mm3 (4.00-5.60); RDW 16.3 % (11.9-15.9)
[2020-01-30 08:01] LABS: ALBUMIN 3.3 g/dl (3.4-5.0); BILIRUBIN,TOTAL 1.2 mg/dL (0.2-1); BLOOD UREA NITROGEN 40.2 mg/dL (7-18); CALCIUM 9.4 mg/dL (8.5-10.1); POTASSIUM 3.3 mmol/L (3.5-5.1)
[2020-01-30] MEDS ORDERED: POTASSIUM CHLORIDE TABS 10 MEQ TABLET.ER (FP) PO ONE (08:29)
--- NOTE | 2020-01-30 08:31 | PN ---
Progress Note, Physician - Current Medication List Current Medications: Active Medications Albuterol/Ipratropium (Duoneb -) 1 amp NEB RQID [facility] Last Admin: 01/29/20 20:20 Dose: 1 amp Documented by: Allopurinol (Zyloprim -) 100 mg PO DAILY [facility] Last Admin: 01/29/20 12:01 Dose: 100 mg Documented by: Apixaban (Eliquis -) 2.5 mg PO BID [facility] Last Admin: 01/29/20 22:23 Dose: 2.5 mg Documented by: Aspirin (Asa -) 81 mg PO DAILY [facility] Last Admin: 01/29/20 12:01 Dose: 81 mg Documented by: Calcium Carbonate/Cholecalciferol (Os-Shar 500+D -) 1 tab PO DAILY [facility] Last Admin: 01/29/20 12:01 Dose: 1 tab Documented by: Escitalopram Oxalate (Lexapro -) 10 mg PO DAILY [facility] Last Admin: 01/29/20 12:02 Dose: 10 mg Documented by: Furosemide (Lasix Injection -) 40 mg IVPUSH BID@0600,1400 [facility] Last Admin: 01/30/20 06:24 Dose: 40 mg Documented by: Hydralazine HCl (Apresoline -) 25 mg PO BID [facility] Last Admin: 01/29/20 22:23 Dose: 25 mg Documented by: Azithromycin (Zithromax 500mg Ivpb (Pre-Docked)) 500 mg in 250 mls @ 250 mls/hr IVPB DAILY [facility] Last Admin: 01/29/20 12:02 Dose: 250 mls/hr Documented by: Piperacillin Sod/Tazobactam (Sod 2.25 gm/ Dextrose) 50 mls @ 100 mls/hr IVPB Q8H-IV [facility]; Protocol Last Admin: 01/30/20 02:54 Dose: 100 mls/hr Documented by: Isosorbide Mononitrate (Imdur -) 30 mg PO DAILY [facility] Last Admin: 01/29/20 12:02 Dose: 30 mg Documented by: Memantine (Namenda -) 10 mg PO BID [facility] Last Admin: 01/29/20 22:23 Dose: 10 mg Documented by: Metolazone (Zaroxolyn -) 2.5 mg PO DAILY [facility] Last Admin: 01/29/20 12:03 Dose: 2.5 mg Documented by: Multivitamins/Minerals/Vitamin C (Tab-A-Vit -) 1 tab PO DAILY [facility] Last Admin: 01/29/20 12:02 Dose: 1 tab Documented by: Mupirocin (Bactroban 2% Cream -) 1 applic TP BID [facility] Last Admin: 01/29/20 22:23 Dose: 1 applic Documented by: Potassium Chloride (K-Dur -) 20 meq PO ONCE ONE Stop: 01/30/20 08:30 - Objective Vital Signs: Vital Signs Temperature 98.6 F 01/30/20 06:00 Pulse Rate 70 01/30/20 06:00 Respiratory Rate 20 01/30/20 06:00 Blood Pressure 129/65 01/30/20 06:00 O2 Sat by Pulse Oximetry (%) 92 L 01/29/20 21:00 Labs: CBC, BMP 01/30/20 06:53 01/30/20 06:53 INR, PTT INR 1.10 (0.83-1.09) H 01/25/20 14:50 Problem List - Problems (1) A-fib Code(s): I48.91 - UNSPECIFIED ATRIAL FIBRILLATION (2) Acute respiratory failure with hypoxia Code(s): J96.01 - ACUTE RESPIRATORY FAILURE WITH HYPOXIA (3) Bradycardia Code(s): R00.1 - BRADYCARDIA, UNSPECIFIED (4) CHF (congestive heart failure) Code(s): I50.9 - HEART FAILURE, UNSPECIFIED (5) Pericardial effusion Code(s): I31.3 - PERICARDIAL EFFUSION (NONINFLAMMATORY) (6) Pleural effusion Code(s): J90 - PLEURAL EFFUSION, NOT ELSEWHERE CLASSIFIED (7) Unsteady gait Code(s): R26.81 - UNSTEADINESS ON FEET (8) Acute kidney injury Code(s): N17.9 - ACUTE KIDNEY FAILURE, UNSPECIFIED (9) Dementia Code(s): F03.90 - UNSPECIFIED DEMENTIA WITHOUT BEHAVIORAL DISTURBANCE (10) HLD (hyperlipidemia) Code(s): E78.5 - HYPERLIPIDEMIA, UNSPECIFIED (11) HTN (hypertension) Code(s): I10 - ESSENTIAL (PRIMARY) HYPERTENSION
[2020-01-30] MEDS: ALBUTEROL SO4 2.5/IPRATROPIUM 0.5 INH SOL 3 ML VIAL.NEB. NEB SCH ×4 (08:35→20:42)
[2020-01-30] MEDS ORDERED: PT OWN MED DRAWER 7, Y5N ONE (09:26)
[2020-01-30] MEDS: ESCITALOPRAM OXALATE 10 MG TABLET PO SCH (09:34)
[2020-01-30] MEDS: CALCIUM 500MG/VIT-D 200 UNITS COMBO TABLET (FP) PO SCH (09:34)
[2020-01-30] MEDS: ASPIRIN 81 MG CHEWABLE TABLETS PO SCH (09:34)
[2020-01-30] MEDS: ISOSORBIDE MONONITRATE 30 MG TAB.SR.24H (FP) PO SCH (09:34)
[2020-01-30] MEDS: MEMANTINE HCL 10 MG TABLET (FP) PO SCH ×2 (09:34→22:44)
[2020-01-30] MEDS: hydrALAZINE HCL 25 MG TABLET (FP) PO SCH ×2 (09:34→22:44)
[2020-01-30] MEDS: ALLOPURINOL 100 MG TABLET (FP) PO SCH (09:34)
[2020-01-30] MEDS: METOLAZONE 2.5 MG TABLET (FP) PO SCH (09:34)
[2020-01-30] MEDS: MULTIVITAMINS (DAILY MVI) TABLET (FP) PO SCH (09:34)
[2020-01-30] MEDS: APIXABAN 2.5 MG TABLET PO SCH ×2 (09:34→22:44)
[2020-01-30] MEDS: AZITHROMYCIN IVPB 500 MG/250 ML BAG IVPB SCH (09:35)
[2020-01-30] MEDS: MUPIROCIN CA 2% TOPICAL CREAM 15 GM TUBE TP SCH ×2 (09:35→22:44)
[2020-01-30] MEDS ORDERED: KCL 10 MEQ IVPB 10 MEQ/100 ML INFUS.BAG IVPB SCH (10:00)
--- NOTE | 2020-01-30 10:27 | PN ---
Progress Note, Physician History of Present Illness: pulmonary alert,confused,comfortable,-resp distress - Current Medication List Current Medications: Active Medications Albuterol/Ipratropium (Duoneb -) 1 amp NEB RQID [facility] Last Admin: 01/30/20 08:35 Dose: 1 amp Documented by: Allopurinol (Zyloprim -) 100 mg PO DAILY [facility] Last Admin: 01/30/20 09:34 Dose: 100 mg Documented by: Apixaban (Eliquis -) 2.5 mg PO BID [facility] Last Admin: 01/30/20 09:34 Dose: 2.5 mg Documented by: Aspirin (Asa -) 81 mg PO DAILY [facility] Last Admin: 01/30/20 09:34 Dose: 81 mg Documented by: Calcium Carbonate/Cholecalciferol (Os-Shar 500+D -) 1 tab PO DAILY [facility] Last Admin: 01/30/20 09:34 Dose: 1 tab Documented by: Escitalopram Oxalate (Lexapro -) 10 mg PO DAILY [facility] Last Admin: 01/30/20 09:34 Dose: 10 mg Documented by: Furosemide (Lasix Injection -) 40 mg IVPUSH BID@0600,1400 [facility] Last Admin: 01/30/20 06:24 Dose: 40 mg Documented by: Hydralazine HCl (Apresoline -) 25 mg PO BID [facility] Last Admin: 01/30/20 09:34 Dose: 25 mg Documented by: Azithromycin (Zithromax 500mg Ivpb (Pre-Docked)) 500 mg in 250 mls @ 250 mls/hr IVPB DAILY [facility] Last Admin: 01/30/20 09:35 Dose: 250 mls/hr Documented by: Piperacillin Sod/Tazobactam (Sod 2.25 gm/ Dextrose) 50 mls @ 100 mls/hr IVPB Q8H-IV [facility]; Protocol Last Admin: 01/30/20 09:32 Dose: 100 mls/hr Documented by: Isosorbide Mononitrate (Imdur -) 30 mg PO DAILY [facility] Last Admin: 01/30/20 09:34 Dose: 30 mg Documented by: Memantine (Namenda -) 10 mg PO BID [facility] Last Admin: 01/30/20 09:34 Dose: 10 mg Documented by: Metolazone (Zaroxolyn -) 2.5 mg PO DAILY [facility] Last Admin: 01/30/20 09:34 Dose: 2.5 mg Documented by: Multivitamins/Minerals/Vitamin C (Tab-A-Vit -) 1 tab PO DAILY [facility] Last Admin: 01/30/20 09:34 Dose: 1 tab Documented by: Mupirocin (Bactroban 2% Cream -) 1 applic TP BID [facility] Last Admin: 01/30/20 09:35 Dose: 1 applic Documented by: Potassium Chloride (K-Dur -) 40 meq PO ONCE ONE Stop: 01/30/20 09:56 Potassium Chloride (K-Dur -) 40 meq PO DAILY ONE Stop: 01/30/20 10:03 - Objective Vital Signs: Vital Signs Temperature 97.9 F 01/30/20 09:14 Pulse Rate 74 01/30/20 09:14 Respiratory Rate 20 01/30/20 09:14 Blood Pressure 125/74 01/30/20 09:14 O2 Sat by Pulse Oximetry (%) 92 L 01/29/20 21:00 Constitutional: Yes: Calm, Thin Eyes: Yes: WNL HENT: Yes: WNL Neck: Yes: WNL Cardiovascular: Yes: Pulse Irregular, S1, S2 Respiratory: Yes: Diminished Gastrointestinal: Yes: Normal Bowel Sounds, Soft Extremities: Yes: WNL Edema: No Labs: CBC, BMP 01/30/20 06:53 01/30/20 06:53 INR, PTT INR 1.10 (0.83-1.09) H 01/25/20 14:50 Problem List - Problems (1) Chronic kidney disease Code(s): N18.9 - CHRONIC KIDNEY DISEASE, UNSPECIFIED (2) A-fib Code(s): I48.91 - UNSPECIFIED ATRIAL FIBRILLATION (3) Acute respiratory failure with hypoxia Code(s): J96.01 - ACUTE RESPIRATORY FAILURE WITH HYPOXIA (4) CHF (congestive heart failure) Code(s): I50.9 - HEART FAILURE, UNSPECIFIED (5) Pleural effusion Code(s): J90 - PLEURAL EFFUSION, NOT ELSEWHERE CLASSIFIED (6) Shortness of breath Code(s): R06.02 - SHORTNESS OF BREATH (7) Troponin level elevated Code(s): R79.89 - OTHER SPECIFIED ABNORMAL FINDINGS OF BLOOD CHEMISTRY (8) HLD (hyperlipidemia) Code(s): E78.5 - HYPERLIPIDEMIA, UNSPECIFIED (9) HTN (hypertension) Code(s): I10 - ESSENTIAL (PRIMARY) HYPERTENSION (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 Assessment/Plan IMP ACUTE HYPOXEMIC RESPIRATORY FAILURE IMPROVED ACUTE CHF IMPROVING ELEVATED TROPONIN LEVEL AFIB HTN DM ACUTE ON CKD DEMENTIA PLAN LASIX SUPPLEMENTAL O2 NIPPV NEEDED FOR INCREASED RESPIRATORY DISTRESS DAILY WTS MONITOR LYTES,RENAL FUNCTION RATE CONTROL F/U CHEST X-RAYS ABX PER ID DR WALKER Problem List - Problems (1) Chronic kidney disease Code(s): N18.9 - CHRONIC KIDNEY DISEASE, UNSPECIFIED (2) A-fib Code(s): I48.91 - UNSPECIFIED ATRIAL FIBRILLATION (3) Acute respiratory failure with hypoxia Code(s): J96.01 - ACUTE RESPIRATORY FAILURE WITH HYPOXIA (4) CHF (congestive heart failure) Code(s): I50.9 - HEART FAILURE, UNSPECIFIED (5) Pleural effusion Code(s): J90 - PLEURAL EFFUSION, NOT ELSEWHERE CLASSIFIED (6) Shortness of breath Code(s): R06.02 - SHORTNESS OF BREATH (7) Troponin level elevated Code(s): R79.89 - OTHER SPECIFIED ABNORMAL FINDINGS OF BLOOD CHEMISTRY (8) HLD (hyperlipidemia) Code(s): E78.5 - HYPERLIPIDEMIA, UNSPECIFIED (9) HTN (hypertension) Code(s): I10 - ESSENTIAL (PRIMARY) HYPERTENSION (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
--- NOTE | 2020-01-30 10:47 | PN ---
Progress Note, Physician History of Present Illness: pt seen and examined today in nad. no overnight events. no new complaints. - Current Medication List Current Medications: Active Medications Albuterol/Ipratropium (Duoneb -) 1 amp NEB RQID [facility] Last Admin: 01/30/20 08:35 Dose: 1 amp Documented by: Allopurinol (Zyloprim -) 100 mg PO DAILY [facility] Last Admin: 01/30/20 09:34 Dose: 100 mg Documented by: Apixaban (Eliquis -) 2.5 mg PO BID [facility] Last Admin: 01/30/20 09:34 Dose: 2.5 mg Documented by: Aspirin (Asa -) 81 mg PO DAILY [facility] Last Admin: 01/30/20 09:34 Dose: 81 mg Documented by: Calcium Carbonate/Cholecalciferol (Os-Shar 500+D -) 1 tab PO DAILY [facility] Last Admin: 01/30/20 09:34 Dose: 1 tab Documented by: Escitalopram Oxalate (Lexapro -) 10 mg PO DAILY [facility] Last Admin: 01/30/20 09:34 Dose: 10 mg Documented by: Furosemide (Lasix Injection -) 40 mg IVPUSH BID@0600,1400 [facility] Last Admin: 01/30/20 06:24 Dose: 40 mg Documented by: Hydralazine HCl (Apresoline -) 25 mg PO BID [facility] Last Admin: 01/30/20 09:34 Dose: 25 mg Documented by: Azithromycin (Zithromax 500mg Ivpb (Pre-Docked)) 500 mg in 250 mls @ 250 mls/hr IVPB DAILY [facility] Last Admin: 01/30/20 09:35 Dose: 250 mls/hr Documented by: Piperacillin Sod/Tazobactam (Sod 2.25 gm/ Dextrose) 50 mls @ 100 mls/hr IVPB Q8H-IV [facility]; Protocol Last Admin: 01/30/20 09:32 Dose: 100 mls/hr Documented by: Isosorbide Mononitrate (Imdur -) 30 mg PO DAILY [facility] Last Admin: 01/30/20 09:34 Dose: 30 mg Documented by: Memantine (Namenda -) 10 mg PO BID [facility] Last Admin: 01/30/20 09:34 Dose: 10 mg Documented by: Metolazone (Zaroxolyn -) 2.5 mg PO DAILY [facility] Last Admin: 01/30/20 09:34 Dose: 2.5 mg Documented by: Multivitamins/Minerals/Vitamin C (Tab-A-Vit -) 1 tab PO DAILY [facility] Last Admin: 01/30/20 09:34 Dose: 1 tab Documented by: Mupirocin (Bactroban 2% Cream -) 1 applic TP BID [facility] Last Admin: 01/30/20 09:35 Dose: 1 applic Documented by: Potassium Chloride (K-Dur -) 40 meq PO ONCE ONE Stop: 01/30/20 14:01 Potassium Chloride (K-Dur -) 40 meq PO DAILY [facility] - Objective Vital Signs: Vital Signs Temperature 97.9 F 01/30/20 09:14 Pulse Rate 74 01/30/20 09:14 Respiratory Rate 20 01/30/20 09:14 Blood Pressure 125/74 01/30/20 09:14 O2 Sat by Pulse Oximetry (%) 92 L 01/29/20 21:00 Constitutional: Yes: No Distress, Calm Eyes: Yes: Conjunctiva Clear, EOM Intact HENT: Yes: Atraumatic, Normocephalic Neck: Yes: Supple, Trachea Midline Cardiovascular: Yes: Pulse Irregular, S1, S2. No: Regular Rate and Rhythm, Bradycardia, Tachycardia, Bruit, JVD, Gallop, Murmur, Rub, S3, S4, Varicosities Respiratory: Yes: Regular, On Nasal O2, Rhonchi. No: Rales, SOB, Wheezes Gastrointestinal: Yes: Normal Bowel Sounds, Soft. No: Distention, Tenderness Musculoskeletal: Yes: WNL Extremities: Yes: WNL Edema: No Peripheral Pulses WNL: Yes Peripheral Pulses: Left Doralis Pedis: 2+, Right Dorsalis Pedis: 2+ Neurological: Yes: Alert Psychiatric: Yes: Alert Labs: CBC, BMP 01/30/20 06:53 01/30/20 06:53 INR, PTT INR 1.10 (0.83-1.09) H 01/25/20 14:50 - ....Imaging Chest X-ray: Report Reviewed, Image Reviewed EKG: Report Reviewed, Image Reviewed Other: Report Reviewed, Image Reviewed (tele-afib, hr adequately controlled) Assessment/Plan 89 y/o [place]-speaking male from [facility] with a PMHx of Afib (on metoprolol ER 25 and eliquis), Chronic Renal Insufficiency, Dementia (baseline alert and oriented only to name), HLD, HTN, CHF. He presented to ED with complaint of SOB and was found to be desaturating in ED. He was admitted for SOB and is being treated for decompensated CHF exacerbation and possible PNA. SOB-likely multifactorial, acute on chronic diastolic chf, sev pulm htn, R sided CHF, possible PNA -echo 01/26/20: Severe concentric LVH with grossly normal LV systolic function. LVEF 50-55%. Moderate RV dilatation with mild hypokinesis. Mild to moderate LA and RA dilatation. Mild AI. Moderate TR. Severe pulm HTN, RVSP > 60 mmHg. -volume status improved -transition to po Lasix -c/w hydralazine, imdur, metolazone -receiving abx for pna Elevated trop -unlikely ACS. Likely 2/2 demand -cardiac enzymes did not significantly trend up -echo showed normal LV systolic function -no additional ischemic evaluation is needed at this time. Chronic AF -HR adequately controlled currently without home metoprolol -if HR becomes above goal resume home metoprolol -digoxin was dc -receiving eliquis ok to dc tele
[2020-01-30] MEDS ORDERED: METOLAZONE 2.5 MG TABLET (FP) PO SCH (11:04)
[2020-01-30] MEDS ORDERED: POTASSIUM CHLORIDE TABS 20 MEQ TABLET.ER (FP) PO ONE (14:00)
--- NOTE | 2020-01-30 14:48 | PN ---
Progress Note, Physician Chief Complaint: Chronic kidney disease History of Present Illness: Seen and examined at the bedside awake and alert offers no acute complaints no sob, chest pain no N/V making urine - Current Medication List Current Medications: Active Medications Albuterol/Ipratropium (Duoneb -) 1 amp NEB RQID [facility] Last Admin: 01/30/20 11:54 Dose: 1 amp Documented by: Allopurinol (Zyloprim -) 100 mg PO DAILY [facility] Last Admin: 01/30/20 09:34 Dose: 100 mg Documented by: Apixaban (Eliquis -) 2.5 mg PO BID [facility] Last Admin: 01/30/20 09:34 Dose: 2.5 mg Documented by: Aspirin (Asa -) 81 mg PO DAILY [facility] Last Admin: 01/30/20 09:34 Dose: 81 mg Documented by: Calcium Carbonate/Cholecalciferol (Os-Shar 500+D -) 1 tab PO DAILY [facility] Last Admin: 01/30/20 09:34 Dose: 1 tab Documented by: Escitalopram Oxalate (Lexapro -) 10 mg PO DAILY [facility] Last Admin: 01/30/20 09:34 Dose: 10 mg Documented by: Furosemide (Lasix -) 40 mg PO BID@0600,1400 [facility] Hydralazine HCl (Apresoline -) 25 mg PO BID [facility] Last Admin: 01/30/20 09:34 Dose: 25 mg Documented by: Azithromycin (Zithromax 500mg Ivpb (Pre-Docked)) 500 mg in 250 mls @ 250 mls/hr IVPB DAILY [facility] Last Admin: 01/30/20 09:35 Dose: 250 mls/hr Documented by: Piperacillin Sod/Tazobactam (Sod 2.25 gm/ Dextrose) 50 mls @ 100 mls/hr IVPB Q8H-IV [facility]; Protocol Last Admin: 01/30/20 09:32 Dose: 100 mls/hr Documented by: Isosorbide Mononitrate (Imdur -) 30 mg PO DAILY [facility] Last Admin: 01/30/20 09:34 Dose: 30 mg Documented by: Memantine (Namenda -) 10 mg PO BID [facility] Last Admin: 01/30/20 09:34 Dose: 10 mg Documented by: Metolazone (Zaroxolyn -) 2.5 mg PO DAILY@0530 [facility] Multivitamins/Minerals/Vitamin C (Tab-A-Vit -) 1 tab PO DAILY [facility] Last Admin: 01/30/20 09:34 Dose: 1 tab Documented by: Mupirocin (Bactroban 2% Cream -) 1 applic TP BID [facility] Last Admin: 01/30/20 09:35 Dose: 1 applic Documented by: Potassium Chloride (K-Dur -) 40 meq PO DAILY [facility] - Objective Vital Signs: Vital Signs Temperature 97.9 F 01/30/20 09:14 Pulse Rate 74 01/30/20 09:14 Respiratory Rate 20 01/30/20 09:14 Blood Pressure 125/74 01/30/20 09:14 O2 Sat by Pulse Oximetry (%) 93 L 01/30/20 09:00 Constitutional: Yes: Well Nourished, No Distress, Calm HENT: Yes: Atraumatic Neck: Yes: Supple Cardiovascular: Yes: Regular Rate and Rhythm, S1, S2. No: Murmur, Rub Respiratory: Yes: Regular, Diminished. No: Rales, Rhonchi, Wheezes Gastrointestinal: Yes: Normal Bowel Sounds, Soft. No: Tenderness Extremities: No: Cold, Cool, Cyanosis Edema: No Neurological: Yes: Alert Labs: CBC, BMP 01/30/20 06:53 01/30/20 06:53 INR, PTT INR 1.10 (0.83-1.09) H 01/25/20 14:50 Problem List - Problems (1) CHF (congestive heart failure) Code(s): I50.9 - HEART FAILURE, UNSPECIFIED (2) Chronic kidney disease Code(s): N18.9 - CHRONIC KIDNEY DISEASE, UNSPECIFIED (3) HTN (hypertension) Code(s): I10 - ESSENTIAL (PRIMARY) HYPERTENSION (4) Respiratory failure Code(s): J96.90 - RESPIRATORY FAILURE, UNSP, UNSP W HYPOXIA OR HYPERCAPNIA (5) Hyperlipidemia Code(s): E78.5 - HYPERLIPIDEMIA, UNSPECIFIED Assessment/Plan 89 year old gentleman with history of CKD, atrial fibrillation on anticoagulation, hypertension, hyperlipidemia and dementia presented from the [place] with hypoxia and shortness of breath and found to have acute HF and noted to have Cr of 2. 1. Acute heart failure 2. CKD 3. Fluid overload 4. Hypoxic respiratroy failure 5. hypertension 6. hyperlpidemia Renal function appears stable no overt electroylte or acid/base disturbance noted transitioned to oral Lasix as per cardiology Also on PO Metolazone 2.5mg daily Trend renal function, electrolytes daily Cardiology follow up Thank you Neal Gonzalez DO
[2020-01-30] MEDS: FUROSEMIDE 40 MG TABLET (FP) PO SCH (14:57)
--- NOTE | 2020-01-30 15:42 | PN ---
Progress Note, Physician Chief Complaint: Afib Dementia Hypoxia History of Present Illness: Previous notes and events reviewed awake and alert NAD denies complaints of chest pain or SOB Influenza neg BC neg - Current Medication List Current Medications: Active Medications Albuterol/Ipratropium (Duoneb -) 1 amp NEB RQID [facility] Last Admin: 01/30/20 11:54 Dose: 1 amp Documented by: Allopurinol (Zyloprim -) 100 mg PO DAILY [facility] Last Admin: 01/30/20 09:34 Dose: 100 mg Documented by: Apixaban (Eliquis -) 2.5 mg PO BID [facility] Last Admin: 01/30/20 09:34 Dose: 2.5 mg Documented by: Aspirin (Asa -) 81 mg PO DAILY [facility] Last Admin: 01/30/20 09:34 Dose: 81 mg Documented by: Calcium Carbonate/Cholecalciferol (Os-Shar 500+D -) 1 tab PO DAILY [facility] Last Admin: 01/30/20 09:34 Dose: 1 tab Documented by: Escitalopram Oxalate (Lexapro -) 10 mg PO DAILY [facility] Last Admin: 01/30/20 09:34 Dose: 10 mg Documented by: Furosemide (Lasix -) 40 mg PO BID@0600,1400 [facility] Last Admin: 01/30/20 14:57 Dose: 40 mg Documented by: Hydralazine HCl (Apresoline -) 25 mg PO BID [facility] Last Admin: 01/30/20 09:34 Dose: 25 mg Documented by: Azithromycin (Zithromax 500mg Ivpb (Pre-Docked)) 500 mg in 250 mls @ 250 mls/hr IVPB DAILY [facility] Last Admin: 01/30/20 09:35 Dose: 250 mls/hr Documented by: Piperacillin Sod/Tazobactam (Sod 2.25 gm/ Dextrose) 50 mls @ 100 mls/hr IVPB Q8H-IV [facility]; Protocol Last Admin: 01/30/20 09:32 Dose: 100 mls/hr Documented by: Isosorbide Mononitrate (Imdur -) 30 mg PO DAILY [facility] Last Admin: 01/30/20 09:34 Dose: 30 mg Documented by: Memantine (Namenda -) 10 mg PO BID [facility] Last Admin: 01/30/20 09:34 Dose: 10 mg Documented by: Metolazone (Zaroxolyn -) 2.5 mg PO DAILY@0530 [facility] Multivitamins/Minerals/Vitamin C (Tab-A-Vit -) 1 tab PO DAILY [facility] Last Admin: 01/30/20 09:34 Dose: 1 tab Documented by: Mupirocin (Bactroban 2% Cream -) 1 applic TP BID [facility] Last Admin: 01/30/20 09:35 Dose: 1 applic Documented by: Potassium Chloride (K-Dur -) 40 meq PO DAILY [facility] - Objective Vital Signs: Vital Signs Temperature 97.9 F 01/30/20 09:14 Pulse Rate 74 01/30/20 09:14 Respiratory Rate 01/30/20 09:14 Blood Pressure 125/74 01/30/20 09:14 O2 Sat by Pulse Oximetry (%) 93 L 01/30/20 09:00 Constitutional: Yes: No Distress, Calm Eyes: Yes: Conjunctiva Clear HENT: Yes: Atraumatic Cardiovascular: Yes: Regular Rate and Rhythm Respiratory: Yes: Regular, CTA Bilaterally Gastrointestinal: Yes: Normal Bowel Sounds, Soft Genitourinary: Yes: Incontinence Musculoskeletal: Yes: Muscle Weakness Extremities: Yes: WNL Edema: No Neurological: Yes: Alert, Pre-Existing Deficit Psychiatric: Yes: Alert Labs: CBC, BMP 01/30/20 06:53 01/30/20 06:53 INR, PTT INR 1.10 (0.83-1.09) H 01/25/20 14:50 Microbiology 01/25/20 15:00 Blood - Peripheral Venous Blood Culture - Preliminary NO GROWTH OBTAINED AFTER 96 HOURS, INCUBATION TO CONTINUE FOR 1 DAYS. 01/25/20 14:50 Blood - Peripheral Venous Blood Culture - Preliminary NO GROWTH OBTAINED AFTER 96 HOURS, INCUBATION TO CONTINUE FOR 1 DAYS. 01/28/20 17:00 Urine For Antigen Detection Legionella Antigen - Final 01/28/20 17:00 Urine For Antigen Detection Streptococcus pneumoniae Antigen (M - Final 01/25/20 16:20 Hand - Left Gram Stain - Final 01/25/20 16:20 Hand - Left Wound Culture - Final S Aureus 01/25/20 14:36 Urine - Urine - Catheterized Urine Culture - Final NO GROWTH OBTAINED Problem List - Problems (1) A-fib Assessment/Plan: Cardiology on board Tele monitoring Eliquis Metoprolol for rate control Code(s): I48.91 - UNSPECIFIED ATRIAL FIBRILLATION (2) Acute respiratory failure with hypoxia Assessment/Plan: Pulm on board Bronchodilators keep SpO2 >90% O2 via NC CXR shows congestive changes, bibasilar pleural effusions with atelectasis and/or infiltrates Code(s): J96.01 - ACUTE RESPIRATORY FAILURE WITH HYPOXIA (3) CHF (congestive heart failure) Assessment/Plan: Cardiology and Pulm on board Lasix Torsemide BNP 58032.9 strict I&O daily weights fluid restriction initial CXR shows congestive changes, bibasilar pleural effusions with atelectasis and/or infiltrates serial CXR monitor for resolution of effusion Code(s): I50.9 - HEART FAILURE, UNSPECIFIED (4) Chronic kidney disease Assessment/Plan: Renal on board BUN/Cr 40.2/2.0 monitor renal function daily Code(s): N18.9 - CHRONIC KIDNEY DISEASE, UNSPECIFIED (5) Dementia Assessment/Plan: Namenda Code(s): F03.90 - UNSPECIFIED DEMENTIA WITHOUT BEHAVIORAL DISTURBANCE (6) HTN (hypertension) Assessment/Plan: Hydralazine, Isosorbide low Na diet Code(s): I10 - ESSENTIAL (PRIMARY) HYPERTENSION (7) Pneumonia Assessment/Plan: CXR shows congestive changes, bibasilar pleural effusions with atelectasis and/or infiltrates Pulm and ID on board bronchodilators keep SpO2 >90% O2 via NC Azithromycin and Zosyn no leukocytosis afebrile Code(s): J18.9 - PNEUMONIA, UNSPECIFIED ORGANISM Assessment/Plan see problem list dvt ppx
--- NOTE | 2020-01-30 23:47 | PN ---
Progress Note, Physician History of Present Illness: AWAKE, CONFUSED NO ACUTE DISTRESS BREATHING NON LABORED AFEBRILE - Current Medication List Current Medications: Active Medications Albuterol/Ipratropium (Duoneb -) 1 amp NEB RQID [facility] Last Admin: 01/30/20 20:42 Dose: 1 amp Documented by: Allopurinol (Zyloprim -) 100 mg PO DAILY [facility] Last Admin: 01/30/20 09:34 Dose: 100 mg Documented by: Apixaban (Eliquis -) 2.5 mg PO BID [facility] Last Admin: 01/30/20 22:44 Dose: 2.5 mg Documented by: Aspirin (Asa -) 81 mg PO DAILY [facility] Last Admin: 01/30/20 09:34 Dose: 81 mg Documented by: Calcium Carbonate/Cholecalciferol (Os-Shar 500+D -) 1 tab PO DAILY [facility] Last Admin: 01/30/20 09:34 Dose: 1 tab Documented by: Escitalopram Oxalate (Lexapro -) 10 mg PO DAILY [facility] Last Admin: 01/30/20 09:34 Dose: 10 mg Documented by: Furosemide (Lasix -) 40 mg PO BID@0600,1400 [facility] Last Admin: 01/30/20 14:57 Dose: 40 mg Documented by: Hydralazine HCl (Apresoline -) 25 mg PO BID [facility] Last Admin: 01/30/20 22:44 Dose: 25 mg Documented by: Azithromycin (Zithromax 500mg Ivpb (Pre-Docked)) 500 mg in 250 mls @ 250 mls/hr IVPB DAILY [facility] Last Admin: 01/30/20 09:35 Dose: 250 mls/hr Documented by: Piperacillin Sod/Tazobactam (Sod 2.25 gm/ Dextrose) 50 mls @ 100 mls/hr IVPB Q8H-IV [facility]; Protocol Last Admin: 01/30/20 17:28 Dose: 100 mls/hr Documented by: Isosorbide Mononitrate (Imdur -) 30 mg PO DAILY [facility] Last Admin: 01/30/20 09:34 Dose: 30 mg Documented by: Memantine (Namenda -) 10 mg PO BID [facility] Last Admin: 01/30/20 22:44 Dose: 10 mg Documented by: Metolazone (Zaroxolyn -) 2.5 mg PO DAILY@0530 [facility] Multivitamins/Minerals/Vitamin C (Tab-A-Vit -) 1 tab PO DAILY [facility] Last Admin: 01/30/20 09:34 Dose: 1 tab Documented by: Mupirocin (Bactroban 2% Cream -) 1 applic TP BID [facility] Last Admin: 01/30/20 22:44 Dose: 1 applic Documented by: Potassium Chloride (K-Dur -) 40 meq PO DAILY [facility] - Objective Vital Signs: Vital Signs Temperature 97.5 F L 01/30/20 21:59 Pulse Rate 89 01/30/20 21:59 Respiratory Rate 20 01/30/20 22:00 Blood Pressure 133/71 01/30/20 21:59 O2 Sat by Pulse Oximetry (%) 97 01/30/20 22:00 Constitutional: Yes: No Distress Cardiovascular: Yes: Regular Rate and Rhythm, S1, S2 Respiratory: Yes: Diminished Extremities: Yes: Other (SL ERYTHEMA, DORSUM L HAND) Labs: CBC, BMP 01/30/20 06:53 01/30/20 06:53 INR, PTT INR 1.10 (0.83-1.09) H 01/25/20 14:50 Assessment/Plan CHF R/O PNEUMONIA THROMBOCYTOPENIA IMPROVED AZOTEMIA MRSA INFECTION L HAND SUBSTITUTE PO CLINDAMYCIN X 3D
[2020-01-31] MEDS: PIPERACILLIN/TAZOB 2.25 GM 2.25 GM in DEXTROSE 5%-WATER - 50 ML IVPB SCH ×3 (03:15→18:22)
[2020-01-31] MEDS ORDERED: DEXTROSE 5%-WATER - 50 ML IVPB ONE ×2 (03:17→09:32)
[2020-01-31] MEDS ORDERED: PIPERACILLIN/TAZOBACTAM 2.25 GM VIAL IVPB ONE ×2 (03:17→09:32)
[2020-01-31] MEDS: FUROSEMIDE 40 MG TABLET (FP) PO SCH ×2 (06:32→13:35)
[2020-01-31] MEDS ORDERED: INSULIN (LEVEMIR) 100 UNITS/ML UNITS SQ ONE (06:48)
[2020-01-31] MEDS ORDERED: INSULIN (NOVOLOG) ASPART 100 UNITS/ML 10ML VIAL ONE (06:48)
[2020-01-31] MEDS: ALBUTEROL SO4 2.5/IPRATROPIUM 0.5 INH SOL 3 ML VIAL.NEB. NEB SCH ×4 (07:45→15:25)
[2020-01-31 07:54] LABS: HEMATOCRIT 33.9 % (35.4-49); HEMOGLOBIN 11.3 GM/dL (11.7-16.9); MCH 31.4 pg (25.7-33.7); MCHC 33.3 g/dl (32.0-35.9); MEAN CELL VOLUME 94.1 fl (80-96); MEAN PLT VOLUME 8.6 fl (7.5-11.1); PLATELET COUNT 150 K/MM3 (134-434); RBC 3.61 M/mm3 (4.00-5.60); RDW 16.5 % (11.9-15.9); WHITE BLOOD COUNT 7.1 K/mm3 (4.0-10.0)
[2020-01-31 07:55] LABS: ALBUMIN 3.1 g/dl (3.4-5.0); BILIRUBIN,TOTAL 0.9 mg/dL (0.2-1); BLOOD UREA NITROGEN 40.9 mg/dL (7-18); CREATININE 1.9 mg/dL (0.55-1.3); POTASSIUM 3.1 mmol/L (3.5-5.1); TOT PROT 6.7 g/dl (6.4-8.2)
[2020-01-31] MEDS ORDERED: POTASSIUM CHLORIDE TABS 20 MEQ TABLET.ER (FP) PO ONE ×2 (09:26→13:00)
[2020-01-31] MEDS: CALCIUM 500MG/VIT-D 200 UNITS COMBO TABLET (FP) PO SCH (09:27)
[2020-01-31] MEDS: MULTIVITAMINS (DAILY MVI) TABLET (FP) PO SCH (09:27)
[2020-01-31] MEDS: hydrALAZINE HCL 25 MG TABLET (FP) PO SCH (09:28)
[2020-01-31] MEDS: MEMANTINE HCL 10 MG TABLET (FP) PO SCH (09:28)
[2020-01-31] MEDS: ALLOPURINOL 100 MG TABLET (FP) PO SCH (09:28)
[2020-01-31] MEDS: ISOSORBIDE MONONITRATE 30 MG TAB.SR.24H (FP) PO SCH (09:28)
[2020-01-31] MEDS: ESCITALOPRAM OXALATE 10 MG TABLET PO SCH (09:28)
[2020-01-31] MEDS: APIXABAN 2.5 MG TABLET PO SCH (09:28)
[2020-01-31] MEDS: ASPIRIN 81 MG CHEWABLE TABLETS PO SCH (09:28)
[2020-01-31] MEDS: AZITHROMYCIN IVPB 500 MG/250 ML BAG IVPB SCH (09:28)
[2020-01-31] MEDS ORDERED: KCL 10 MEQ IVPB 10 MEQ/100 ML INFUS.BAG IVPB SCH (09:30)
[2020-01-31] MEDS ORDERED: POTASSIUM CHLORIDE TABS 20 MEQ TABLET.ER (FP) PO SCH (10:00)
--- NOTE | 2020-01-31 10:21 | DS ---
Physical Examination Vital Signs: Vital Signs Temperature 97.8 F 01/31/20 08:02 Pulse Rate 94 H 01/31/20 08:02 Respiratory Rate 20 01/31/20 08:16 Blood Pressure 139/77 01/31/20 08:02 O2 Sat by Pulse Oximetry (%) 97 01/31/20 08:16 Constitutional: Yes: No Distress Cardiovascular: Yes: Pulse Irregular Respiratory: Yes: Diminished Gastrointestinal: Yes: Soft Renal/: Yes: Incontinence Musculoskeletal: Yes: Muscle Weakness Labs: CBC, BMP 01/31/20 06:54 01/31/20 06:54 Discharge Summary Problems reviewed: Yes Reason For Visit: SOB AFIB Current Active Problems A-fib (Acute) Acute respiratory failure with hypoxia (Acute) Bradycardia (Acute) CHF (congestive heart failure) (Acute) CHF exacerbation (Acute) Chronic kidney disease (Acute) Hyperlipidemia (Acute) Pericardial effusion (Acute) Pleural effusion (Acute) Pneumonia (Acute) Respiratory failure (Acute) Shortness of breath (Acute) Troponin level elevated (Acute) Unsteady gait (Acute) Procedures: Principal: CT SCAN/LABS Hospital Course: ADMITTED WITH SEPSIS, PNA/UTI WOUND INFECTION STAPH MRSA POSITIVE TREATED IV ABX WILL CHANGE TO PO CLINDAMYCIN Condition: Fair - Instructions Diet, Activity, Other Instructions: CLINDAMYCIN PER INFECTIOUS DISEASE] CHECK LABS WEEKLY STOP KCL PER LAB FOLLOW UP Referrals: Julia Smith MD [Primary Care Provider] - Disposition: [facility] - Home Medications Comprehensive Discharge Medication List: Ambulatory Orders Digoxin [Lanoxin -] 0.125 mg PO DAILY 06/04/16 Acetaminophen [Tylenol .Regular Strength -] 650 mg PO Q4H PRN #0 tablet 06/07/16 Apixaban [Eliquis -] 2.5 mg PO BID tablet 06/07/16 Amlodipine Besylate [Norvasc -] 10 mg PO DAILY tablet 01/11/17 Allopurinol [Zyloprim -] 100 mg PO DAILY 02/22/19 Ascorbate Calcium [Vitamin C] 500 mg PO DAILY 02/22/19 Calcium Carbonate/Vitamin D3 [Oyster Shell 500-Vit D3 200 Tb] 1 each PO DAILY 02/22/19 Cholecalciferol (Vitamin D3) [Vitamin D3] 1,000 unit PO DAILY 02/22/19 Escitalopram Oxalate [Lexapro -] 10 mg PO DAILY 02/22/19 Furosemide [Lasix -] 80 mg PO DAILY 02/22/19 Memantine HCl [Namenda -] 10 mg PO BID 02/22/19 Metolazone [Zaroxolyn -] 2.5 mg PO DAILY 02/22/19 Multivitamin [One-Daily Multi-Vitamin] 1 each PO DAILY 02/22/19 Potassium Chloride 40 meq PO BID 02/22/19 Ranitidine [Zantac -] 300 mg PO DAILY 02/22/19 Albuterol 2.5/Ipratropium 0.5 [Duoneb -] 1 amp NEB RQID amp 01/31/20 Aspirin [ASA -] 81 mg PO DAILY tab.chew 01/31/20 Furosemide [Lasix -] 40 mg PO BID@0600,1400 tablet 01/31/20 Isosorbide Mononitrate [Imdur -] 30 mg PO DAILY 5 Days #5 tab.sr.24h 01/31/20 Mupirocin Cream [Bactroban 2% Cream -] 1 applic TP BID tube 01/31/20 Potassium Chloride [K-Dur -] 40 meq PO DAILY tablet.er 01/31/20 hydrALAZINE HCL [Apresoline -] 25 mg PO BID tablet 01/31/20
--- NOTE | 2020-01-31 10:57 | PN ---
Progress Note, Physician History of Present Illness: PULMONARY ALERT,NO DISTRESS,-CONGESTION ,-SOB - Current Medication List Current Medications: Active Medications Albuterol/Ipratropium (Duoneb -) 1 amp NEB RQID [facility] Last Admin: 01/31/20 07:45 Dose: Not Given Documented by: Allopurinol (Zyloprim -) 100 mg PO DAILY [facility] Last Admin: 01/31/20 09:28 Dose: 100 mg Documented by: Apixaban (Eliquis -) 2.5 mg PO BID [facility] Last Admin: 01/31/20 09:28 Dose: 2.5 mg Documented by: Aspirin (Asa -) 81 mg PO DAILY [facility] Last Admin: 01/31/20 09:28 Dose: 81 mg Documented by: Calcium Carbonate/Cholecalciferol (Os-Shar 500+D -) 1 tab PO DAILY [facility] Last Admin: 01/31/20 09:27 Dose: 1 tab Documented by: Escitalopram Oxalate (Lexapro -) 10 mg PO DAILY [facility] Last Admin: 01/31/20 09:28 Dose: 10 mg Documented by: Furosemide (Lasix -) 40 mg PO BID@0600,1400 [facility] Last Admin: 01/31/20 06:32 Dose: 40 mg Documented by: Hydralazine HCl (Apresoline -) 25 mg PO BID [facility] Last Admin: 01/31/20 09:28 Dose: 25 mg Documented by: Azithromycin (Zithromax 500mg Ivpb (Pre-Docked)) 500 mg in 250 mls @ 250 mls/hr IVPB DAILY [facility] Last Admin: 01/31/20 09:28 Dose: 250 mls/hr Documented by: Piperacillin Sod/Tazobactam (Sod 2.25 gm/ Dextrose) 50 mls @ 100 mls/hr IVPB Q8H-IV [facility]; Protocol Last Admin: 01/31/20 09:34 Dose: 100 mls/hr Documented by: Isosorbide Mononitrate (Imdur -) 30 mg PO DAILY [facility] Last Admin: 01/31/20 09:28 Dose: 30 mg Documented by: Memantine (Namenda -) 10 mg PO BID [facility] Last Admin: 01/31/20 09:28 Dose: 10 mg Documented by: Metolazone (Zaroxolyn -) 2.5 mg PO DAILY@0530 [facility] Last Admin: 01/31/20 05:45 Dose: 2.5 mg Documented by: Multivitamins/Minerals/Vitamin C (Tab-A-Vit -) 1 tab PO DAILY [facility] Last Admin: 01/31/20 09:27 Dose: 1 tab Documented by: Mupirocin (Bactroban 2% Cream -) 1 applic TP BID [facility] Last Admin: 01/30/20 22:44 Dose: 1 applic Documented by: Potassium Chloride (K-Dur -) 40 meq PO DAILY [facility] Last Admin: 01/31/20 09:27 Dose: 40 meq Documented by: Potassium Chloride (K-Dur -) 40 meq PO ONCE ONE Stop: 01/31/20 13:01 - Objective Vital Signs: Vital Signs Temperature 97.8 F 01/31/20 08:02 Pulse Rate 94 H 01/31/20 08:02 Respiratory Rate 20 01/31/20 08:16 Blood Pressure 139/77 01/31/20 08:02 O2 Sat by Pulse Oximetry (%) 97 01/31/20 08:16 Constitutional: Yes: Well Nourished, Calm Eyes: Yes: WNL HENT: Yes: WNL Neck: Yes: WNL Cardiovascular: Yes: Pulse Irregular, S1, S2 Respiratory: Yes: Rales (FEW BIBASILAR RALES) Gastrointestinal: Yes: Normal Bowel Sounds, Soft Extremities: Yes: WNL Edema: No Labs: CBC, BMP 01/31/20 06:54 01/31/20 06:54 INR, PTT INR 1.10 (0.83-1.09) H 01/25/20 14:50 - ....Imaging Chest X-ray: Report Reviewed, Image Reviewed Problem List - Problems (1) Chronic kidney disease Code(s): N18.9 - CHRONIC KIDNEY DISEASE, UNSPECIFIED (2) A-fib Code(s): I48.91 - UNSPECIFIED ATRIAL FIBRILLATION (3) Acute respiratory failure with hypoxia Code(s): J96.01 - ACUTE RESPIRATORY FAILURE WITH HYPOXIA (4) CHF (congestive heart failure) Code(s): I50.9 - HEART FAILURE, UNSPECIFIED (5) Pleural effusion Code(s): J90 - PLEURAL EFFUSION, NOT ELSEWHERE CLASSIFIED (6) Shortness of breath Code(s): R06.02 - SHORTNESS OF BREATH (7) Troponin level elevated Code(s): R79.89 - OTHER SPECIFIED ABNORMAL FINDINGS OF BLOOD CHEMISTRY (8) HLD (hyperlipidemia) Code(s): E78.5 - HYPERLIPIDEMIA, UNSPECIFIED (9) HTN (hypertension) Code(s): I10 - ESSENTIAL (PRIMARY) HYPERTENSION (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 Assessment/Plan IMP ACUTE HYPOXEMIC RESPIRATORY FAILURE IMPROVED ACUTE CHF IMPROVed ELEVATED TROPONIN LEVEL AFIB HTN DM ACUTE ON CKD DEMENTIA PLAN LASIX ABX PER ID CHARLEY WALKER Problem List - Problems (1) Chronic kidney disease Code(s): N18.9 - CHRONIC KIDNEY DISEASE, UNSPECIFIED (2) A-fib Code(s): I48.91 - UNSPECIFIED ATRIAL FIBRILLATION (3) Acute respiratory failure with hypoxia Code(s): J96.01 - ACUTE RESPIRATORY FAILURE WITH HYPOXIA (4) CHF (congestive heart failure) Code(s): I50.9 - HEART FAILURE, UNSPECIFIED (5) Pleural effusion Code(s): J90 - PLEURAL EFFUSION, NOT ELSEWHERE CLASSIFIED (6) Shortness of breath Code(s): R06.02 - SHORTNESS OF BREATH (7) Troponin level elevated Code(s): R79.89 - OTHER SPECIFIED ABNORMAL FINDINGS OF BLOOD CHEMISTRY (8) HLD (hyperlipidemia) Code(s): E78.5 - HYPERLIPIDEMIA, UNSPECIFIED (9) HTN (hypertension) Code(s): I10 - ESSENTIAL (PRIMARY) HYPERTENSION (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
[2020-01-31] MEDS: MUPIROCIN CA 2% TOPICAL CREAM 15 GM TUBE TP SCH (11:18)
--- NOTE | 2020-01-31 13:40 | PN ---
Progress Note, Physician Chief Complaint: Chronic kidney disease History of Present Illness: Seen and examined at the bedside awake and alert offers no acute complaints no sob, chest pain no N/V making urine - Current Medication List Current Medications: Active Medications Albuterol/Ipratropium (Duoneb -) 1 amp NEB RQID [facility] Last Admin: 01/31/20 07:45 Dose: Not Given Documented by: Allopurinol (Zyloprim -) 100 mg PO DAILY [facility] Last Admin: 01/31/20 09:28 Dose: 100 mg Documented by: Apixaban (Eliquis -) 2.5 mg PO BID [facility] Last Admin: 01/31/20 09:28 Dose: 2.5 mg Documented by: Aspirin (Asa -) 81 mg PO DAILY [facility] Last Admin: 01/31/20 09:28 Dose: 81 mg Documented by: Calcium Carbonate/Cholecalciferol (Os-Shar 500+D -) 1 tab PO DAILY [facility] Last Admin: 01/31/20 09:27 Dose: 1 tab Documented by: Escitalopram Oxalate (Lexapro -) 10 mg PO DAILY [facility] Last Admin: 01/31/20 09:28 Dose: 10 mg Documented by: Furosemide (Lasix -) 40 mg PO BID@0600,1400 [facility] Last Admin: 01/31/20 13:35 Dose: 40 mg Documented by: Hydralazine HCl (Apresoline -) 25 mg PO BID [facility] Last Admin: 01/31/20 09:28 Dose: 25 mg Documented by: Azithromycin (Zithromax 500mg Ivpb (Pre-Docked)) 500 mg in 250 mls @ 250 mls/hr IVPB DAILY [facility] Last Admin: 01/31/20 09:28 Dose: 250 mls/hr Documented by: Piperacillin Sod/Tazobactam (Sod 2.25 gm/ Dextrose) 50 mls @ 100 mls/hr IVPB Q8H-IV [facility]; Protocol Last Admin: 01/31/20 09:34 Dose: 100 mls/hr Documented by: Isosorbide Mononitrate (Imdur -) 30 mg PO DAILY [facility] Last Admin: 01/31/20 09:28 Dose: 30 mg Documented by: Memantine (Namenda -) 10 mg PO BID [facility] Last Admin: 01/31/20 09:28 Dose: 10 mg Documented by: Metolazone (Zaroxolyn -) 2.5 mg PO DAILY@0530 [facility] Last Admin: 01/31/20 05:45 Dose: 2.5 mg Documented by: Multivitamins/Minerals/Vitamin C (Tab-A-Vit -) 1 tab PO DAILY [facility] Last Admin: 01/31/20 09:27 Dose: 1 tab Documented by: Mupirocin (Bactroban 2% Cream -) 1 applic TP BID [facility] Last Admin: 01/31/20 11:18 Dose: Not Given Documented by: Potassium Chloride (K-Dur -) 40 meq PO DAILY [facility] Last Admin: 01/31/20 09:27 Dose: 40 meq Documented by: - Objective Vital Signs: Vital Signs Temperature 97.8 F 01/31/20 08:02 Pulse Rate 94 H 01/31/20 08:02 Respiratory Rate 20 01/31/20 08:16 Blood Pressure 139/77 01/31/20 08:02 O2 Sat by Pulse Oximetry (%) 97 01/31/20 08:16 Constitutional: Yes: No Distress Eyes: Yes: Conjunctiva Clear HENT: Yes: Atraumatic, Normocephalic Neck: Yes: Supple Cardiovascular: Yes: Regular Rate and Rhythm Respiratory: Yes: Regular, CTA Bilaterally Edema: No Labs: CBC, BMP 01/31/20 06:54 01/31/20 06:54 INR, PTT INR 1.10 (0.83-1.09) H 01/25/20 14:50 Problem List - Problems (1) CHF (congestive heart failure) Code(s): I50.9 - HEART FAILURE, UNSPECIFIED (2) Chronic kidney disease Code(s): N18.9 - CHRONIC KIDNEY DISEASE, UNSPECIFIED (3) HTN (hypertension) Code(s): I10 - ESSENTIAL (PRIMARY) HYPERTENSION (4) Respiratory failure Code(s): J96.90 - RESPIRATORY FAILURE, UNSP, UNSP W HYPOXIA OR HYPERCAPNIA (5) Hyperlipidemia Code(s): E78.5 - HYPERLIPIDEMIA, UNSPECIFIED Assessment/Plan 89 year old gentleman with history of CKD, atrial fibrillation on anticoagulation, hypertension, hyperlipidemia and dementia presented from the [place] with hypoxia and shortness of breath and found to have acute HF and noted to have Cr of 2. 1. Acute heart failure 2. CKD 3. Fluid overload 4. Hypoxic respiratroy failure 5. hypertension 6. hyperlpidemia Renal function stable no overt electrolyte or acid/base disturbance noted continue oral lasix and metolazone daily once discharged would monitor BMP Q weekly Trend renal function, electrolytes daily Cardiology follow up discharge planning as per primary team Thank you Neal Gonzalez DO
[2020-01-31 15:38] VITALS: BP 98/59; PULSE 106; TEMP 98
--- NOTE | 2020-01-31 22:09 | PN ---
Progress Note, Physician History of Present Illness: AWAKE, CONFUSED NO ACUTE DISTRESS BREATHING NON LABORED AFEBRILE - Objective Vital Signs: Vital Signs Temperature 98.0 F 01/31/20 15:37 Pulse Rate 106 H 01/31/20 15:37 Respiratory Rate 20 01/31/20 15:37 Blood Pressure 98/59 L 01/31/20 15:37 O2 Sat by Pulse Oximetry (%) 97 01/31/20 08:16 Constitutional: Yes: No Distress Cardiovascular: Yes: Regular Rate and Rhythm, S1, S2 Respiratory: Yes: CTA Bilaterally Gastrointestinal: Yes: Normal Bowel Sounds, Soft Extremities: Yes: Other (MILD RESIDUAL ERYTHEMA, DORSUM L HAND) Labs: CBC, BMP 01/31/20 06:54 01/31/20 06:54 INR, PTT INR 1.10 (0.83-1.09) H 01/25/20 14:50 Assessment/Plan CHF R/O PNEUMONIA THROMBOCYTOPENIA IMPROVED AZOTEMIA MRSA INFECTION L HAND SUBSTITUTE PO CLINDAMYCIN X 3D
== END 2020-01-31 18:24 | DRG 291 ==
LOC: JER 13:56 → JERBED 15:44 → J4W 21:20
PROVIDERS: ADMIT Internal Medicine; ATTEND Family Medicine
DX: I13.0 Hypertensive heart and chronic kidney disease with heart failure and stage 1 through stage 4 chronic kidney disease, or unspecified chronic kidney disease (principal); J18.9 Pneumonia, unspecified organism; I50.33 Acute on chronic diastolic (congestive) heart failure; J96.01 Acute respiratory failure with hypoxia; I24.8 Other forms of acute ischemic heart disease; I48.19 Other persistent atrial fibrillation; N17.9 Acute kidney failure, unspecified; J98.11 Atelectasis; N39.0 Urinary tract infection, site not specified; A49.02 Methicillin resistant Staphylococcus aureus infection, unspecified site; N18.9 Chronic kidney disease, unspecified; D69.6 Thrombocytopenia, unspecified; F03.90 Unspecified dementia, unspecified severity, without behavioral disturbance, psychotic disturbance, mood disturbance, and anxiety; E87.70 Fluid overload, unspecified; E78.5 Hyperlipidemia, unspecified; R00.1 Bradycardia, unspecified; E11.9 Type 2 diabetes mellitus without complications; I27.20 Pulmonary hypertension, unspecified; E87.6 Hypokalemia; D53.9 Nutritional anemia, unspecified
CPT/HCPCS: 36415; 71045-TC-FY; 76775-TC; 80048; 80053; 81003; 82550; 82565; 82570; 82962; 83735; 83880; 84100; 84132; 84156; 84484; 84540; 85025; 85027; 85610; 85730; 87040; 87070; 87086; 87186; 87205; 87804; 87899; 93005; 93010; 93306-TC; 94640; 97116-GP; 97161-GP; 99285-25

== ENCOUNTER 2021-08-01 14:35 | Inpatient (IN) | payer OTHER ==
[2021-08-01 17:10] LABS: BASO % 0.6 % (0-2.0); EOS % 1.4 % (0-4.5); HEMATOCRIT 27.9 % (35.4-49); HEMOGLOBIN 9.3 GM/dL (11.7-16.9); MCH 32.3 pg (25.7-33.7); MCHC 33.3 g/dl (32.0-35.9); MEAN CELL VOLUME 96.8 fl (80-96); MEAN PLT VOLUME 7.8 fl (7.5-11.1); MONO % 10.4 % (3.8-10.2); NEUT % 81.6 % (42.8-82.8); PLATELET COUNT 151 10^3/uL (134-434); RBC 2.89 M/mm3 (4.00-5.60); RDW 16.6 % (11.9-15.9); WHITE BLOOD COUNT 9.1 K/mm3 (4.0-10.0)
[2021-08-01 17:21] LABS: INR 1.31 (0.83-1.09)
[2021-08-01 17:23] LABS: ACTIVATED PTT 29.9 SECONDS (25.2-36.5)
[2021-08-01 17:34] LABS: CALCIUM 8.8 mg/dL (8.5-10.1)
[2021-08-01 17:35] LABS: ALBUMIN 3.2 g/dl (3.4-5.0); BLOOD UREA NITROGEN 56.3 mg/dL (7-18)
[2021-08-01 17:36] LABS: MAGNESIUM 2.4 mg/dL (1.8-2.4)
[2021-08-01 17:40] LABS: BILIRUBIN,TOTAL 0.6 mg/dL (0.2-1); TOT PROT 6.5 g/dl (6.4-8.2)
[2021-08-01 17:46] LABS: N-TERMINAL BNP 26756.3 pg/ml (5-450)
[2021-08-01] MEDS ORDERED: FUROSEMIDE 40 MG/4 ML INJECTABLE VIAL IVPUSH ONE (18:09)
[2021-08-01] MEDS ORDERED: ASPIRIN 81 MG CHEWABLE TABLETS PO ONE (18:10)
[2021-08-01] MEDS ORDERED: FUROSEMIDE 40 MG/4 ML INJECTABLE VIAL ONE (18:23)
[2021-08-01] MEDS ORDERED: ASPIRIN COATED 81 MG TABLET.EC ONE (18:23)
[2021-08-02 02:06] VITALS: BMI 23.5
[2021-08-02] MEDS: MEMANTINE HCL 10 MG TABLET (FP) PO SCH ×3 (02:23→22:14)
[2021-08-02] MEDS: APIXABAN 2.5 MG TABLET PO SCH ×3 (02:23→22:14)
[2021-08-02] MEDS: ALBUTEROL SO4 2.5/IPRATROPIUM 0.5 INH SOL 3 ML VIAL.NEB. NEB SCH ×4 (07:50→20:00)
[2021-08-02 08:00] LABS: BASO % 1.1 % (0-2.0); EOS % 2.7 % (0-4.5); HEMATOCRIT 29.4 % (35.4-49); HEMOGLOBIN 9.9 GM/dL (11.7-16.9); LYMPH % 6.9 % (8-40); MCH 32.8 pg (25.7-33.7); MCHC 33.7 g/dl (32.0-35.9); MEAN CELL VOLUME 97.5 fl (80-96); MEAN PLT VOLUME 7.9 fl (7.5-11.1); MONO % 9.1 % (3.8-10.2); NEUT % 80.2 % (42.8-82.8); PLATELET COUNT 151 10^3/uL (134-434); RBC 3.01 M/mm3 (4.00-5.60); RDW 16.9 % (11.9-15.9); WHITE BLOOD COUNT 8.3 K/mm3 (4.0-10.0)
[2021-08-02 08:19] LABS: ALBUMIN 3.3 g/dl (3.4-5.0); BLOOD UREA NITROGEN 55.8 mg/dL (7-18)
[2021-08-02 08:20] LABS: CHOLESTEROL 147 mg/dL (50-200)
[2021-08-02 08:21] LABS: TRIGLYCERIDES 64 mg/dL (0-150)
[2021-08-02 08:22] LABS: HDL CHOLESTEROL 59 mg/dL (40-60); LDL CHOLESTEROL (ONLY SJRH) 77 mg/dL (5-100)
[2021-08-02 08:24] LABS: BILIRUBIN,TOTAL 0.9 mg/dL (0.2-1); TOT PROT 6.4 g/dl (6.4-8.2)
[2021-08-02] MEDS ORDERED: FUROSEMIDE 20 MG TABLET (FP) PO SCH (10:00)
[2021-08-02] MEDS ORDERED: ISOSORBIDE MONONITRATE 30 MG TAB.SR.24H (FP) PO SCH (10:00)
[2021-08-02] MEDS: FAMOTIDINE 10 MG TABLET PO SCH (10:32)
[2021-08-02] MEDS: hydrALAZINE HCL 25 MG TABLET (FP) PO SCH ×2 (10:32→22:14)
[2021-08-02] MEDS: METOLAZONE 2.5 MG TABLET (FP) PO SCH (10:32)
[2021-08-02] MEDS: ASPIRIN 81 MG CHEWABLE TABLETS PO SCH (10:32)
[2021-08-02] MEDS: ALLOPURINOL 100 MG TABLET (FP) PO SCH (10:33)
[2021-08-02] MEDS: MULTIVITAMINS (DAILY MVI) TABLET (FP) PO SCH (10:33)
[2021-08-02] MEDS: CHOLECALCIFEROL (VIT D3) 1,000 UNIT (25 MCG) TABLET PO SCH (10:33)
[2021-08-02] MEDS: ASCORBIC ACID 500 MG TABLET (FP) PO SCH (10:33)
[2021-08-02] MEDS: FUROSEMIDE 40 MG/4 ML INJECTABLE VIAL IVPUSH SCH (10:36)
[2021-08-03] MEDS: ALBUTEROL SO4 2.5/IPRATROPIUM 0.5 INH SOL 3 ML VIAL.NEB. NEB SCH ×4 (07:40→19:59)
[2021-08-03 07:47] LABS: ALBUMIN 3.2 g/dl (3.4-5.0); BLOOD UREA NITROGEN 52.8 mg/dL (7-18); CALCIUM 9.1 mg/dL (8.5-10.1); EOS % 3.2 % (0-4.5); HEMATOCRIT 29.8 % (35.4-49); HEMOGLOBIN 10.2 GM/dL (11.7-16.9); LYMPH % 7.6 % (8-40); MAGNESIUM 2.2 mg/dL (1.8-2.4); MCHC 34.1 g/dl (32.0-35.9); MEAN CELL VOLUME 96.8 fl (80-96); MEAN PLT VOLUME 7.7 fl (7.5-11.1); MONO % 11.1 % (3.8-10.2); NEUT % 77.1 % (42.8-82.8); PLATELET COUNT 157 10^3/uL (134-434); RBC 3.08 M/mm3 (4.00-5.60); RDW 16.4 % (11.9-15.9); WHITE BLOOD COUNT 8.6 K/mm3 (4.0-10.0)
[2021-08-03 07:50] LABS: CREATININE 1.9 mg/dL (0.55-1.3); PHOSPHOROUS 4.1 mg/dL (2.5-4.9)
[2021-08-03 07:51] LABS: TOT PROT 6.4 g/dl (6.4-8.2)
[2021-08-03] MEDS: ISOSORBIDE MONONITRATE 30 MG TAB.SR.24H (FP) PO SCH (10:38)
[2021-08-03] MEDS: MEMANTINE HCL 10 MG TABLET (FP) PO SCH ×2 (10:39→21:19)
[2021-08-03] MEDS: metoPROLOL SUCCINATE 25 MG TAB.SR.24H (FP) PO SCH (10:39)
[2021-08-03] MEDS: ALLOPURINOL 100 MG TABLET (FP) PO SCH (10:39)
[2021-08-03] MEDS: hydrALAZINE HCL 25 MG TABLET (FP) PO SCH ×2 (10:39→21:19)
[2021-08-03] MEDS: ASPIRIN 81 MG CHEWABLE TABLETS PO SCH (10:39)
[2021-08-03] MEDS: APIXABAN 2.5 MG TABLET PO SCH ×2 (10:39→21:19)
[2021-08-03] MEDS: ASCORBIC ACID 500 MG TABLET (FP) PO SCH (10:39)
[2021-08-03] MEDS: FUROSEMIDE 40 MG/4 ML INJECTABLE VIAL IVPUSH SCH (10:39)
[2021-08-03] MEDS: MULTIVITAMINS (DAILY MVI) TABLET (FP) PO SCH (10:39)
[2021-08-03] MEDS: FAMOTIDINE 10 MG TABLET PO SCH (10:39)
[2021-08-03] MEDS: CHOLECALCIFEROL (VIT D3) 1,000 UNIT (25 MCG) TABLET PO SCH (10:39)
[2021-08-03] MEDS ORDERED: IRON SUCROSE INJECTION 100 MG in SODIUM CHLORIDE 95 ML IVPB ONE (10:47)
[2021-08-04 08:27] LABS: BASO % 0.7 % (0-2.0); EOS % 3.1 % (0-4.5); HEMATOCRIT 30.5 % (35.4-49); HEMOGLOBIN 10.4 GM/dL (11.7-16.9); LYMPH % 6.4 % (8-40); MCH 32.5 pg (25.7-33.7); MEAN CELL VOLUME 95.8 fl (80-96); MEAN PLT VOLUME 7.4 fl (7.5-11.1); MONO % 9.7 % (3.8-10.2); NEUT % 80.1 % (42.8-82.8); PLATELET COUNT 165 10^3/uL (134-434); RBC 3.19 M/mm3 (4.00-5.60); RDW 16.8 % (11.9-15.9); WHITE BLOOD COUNT 8.9 K/mm3 (4.0-10.0)
[2021-08-04 08:51] LABS: ALBUMIN 3.1 g/dl (3.4-5.0); BLOOD UREA NITROGEN 63.9 mg/dL (7-18)
[2021-08-04 08:52] LABS: CREATININE 2.6 mg/dL (0.55-1.3)
[2021-08-04 08:53] LABS: TOT PROT 6.4 g/dl (6.4-8.2)
[2021-08-04 08:54] LABS: BILIRUBIN,TOTAL 0.6 mg/dL (0.2-1)
[2021-08-04] MEDS: ALBUTEROL SO4 2.5/IPRATROPIUM 0.5 INH SOL 3 ML VIAL.NEB. NEB SCH ×4 (08:55→19:30)
[2021-08-04] MEDS: FUROSEMIDE 40 MG/4 ML INJECTABLE VIAL IVPUSH SCH (10:22)
[2021-08-04] MEDS: metoPROLOL SUCCINATE 25 MG TAB.SR.24H (FP) PO SCH (10:23)
[2021-08-04] MEDS: ASPIRIN 81 MG CHEWABLE TABLETS PO SCH (10:23)
[2021-08-04] MEDS: hydrALAZINE HCL 25 MG TABLET (FP) PO SCH ×2 (10:23→22:01)
[2021-08-04] MEDS: FAMOTIDINE 10 MG TABLET PO SCH (10:23)
[2021-08-04] MEDS: MULTIVITAMINS (DAILY MVI) TABLET (FP) PO SCH (10:23)
[2021-08-04] MEDS: ALLOPURINOL 100 MG TABLET (FP) PO SCH (10:23)
[2021-08-04] MEDS: APIXABAN 2.5 MG TABLET PO SCH ×2 (10:23→21:50)
[2021-08-04] MEDS: POTASSIUM CHLORIDE TABS 20 MEQ TABLET.ER (FP) PO SCH (10:23)
[2021-08-04] MEDS: MEMANTINE HCL 10 MG TABLET (FP) PO SCH ×2 (10:23→21:52)
[2021-08-04] MEDS: ISOSORBIDE MONONITRATE 30 MG TAB.SR.24H (FP) PO SCH (10:23)
[2021-08-04] MEDS: ASCORBIC ACID 500 MG TABLET (FP) PO SCH (10:24)
[2021-08-04] MEDS: METOLAZONE 2.5 MG TABLET (FP) PO SCH (10:24)
[2021-08-04] MEDS: CHOLECALCIFEROL (VIT D3) 1,000 UNIT (25 MCG) TABLET PO SCH (10:24)
[2021-08-04] MEDS ORDERED: IRON SUCROSE INJECTION 100 MG in SODIUM CHLORIDE 95 ML IVPB ONE (13:43)
[2021-08-05] MEDS: ALBUTEROL SO4 2.5/IPRATROPIUM 0.5 INH SOL 3 ML VIAL.NEB. NEB SCH ×2 (08:10→11:40)
[2021-08-05 08:55] VITALS: BP 114/63; PULSE 69; TEMP 97.8
[2021-08-05] MEDS ORDERED: PT OWN MED DRAWER 7, Y5N ONE (09:59)
[2021-08-05] MEDS: metoPROLOL SUCCINATE 25 MG TAB.SR.24H (FP) PO SCH (10:01)
[2021-08-05] MEDS: POTASSIUM CHLORIDE TABS 20 MEQ TABLET.ER (FP) PO SCH (10:01)
[2021-08-05] MEDS: APIXABAN 2.5 MG TABLET PO SCH (10:01)
[2021-08-05] MEDS: MULTIVITAMINS (DAILY MVI) TABLET (FP) PO SCH (10:01)
[2021-08-05] MEDS: CHOLECALCIFEROL (VIT D3) 1,000 UNIT (25 MCG) TABLET PO SCH (10:01)
[2021-08-05] MEDS: MEMANTINE HCL 10 MG TABLET (FP) PO SCH (10:02)
[2021-08-05] MEDS: ALLOPURINOL 100 MG TABLET (FP) PO SCH (10:02)
[2021-08-05] MEDS: hydrALAZINE HCL 25 MG TABLET (FP) PO SCH (10:02)
[2021-08-05] MEDS: FAMOTIDINE 10 MG TABLET PO SCH (10:02)
[2021-08-05] MEDS: ASCORBIC ACID 500 MG TABLET (FP) PO SCH (10:03)
[2021-08-05] MEDS: ASPIRIN 81 MG CHEWABLE TABLETS PO SCH (10:03)
[2021-08-05] MEDS: ISOSORBIDE MONONITRATE 30 MG TAB.SR.24H (FP) PO SCH (10:03)
== END 2021-08-05 14:16 | DRG 291 ==
LOC: JER 14:35 → JERBED 20:01 → J4S 08-02 01:38
PROVIDERS: ADMIT Internal Medicine; ATTEND Family Medicine
DX: I13.0 Hypertensive heart and chronic kidney disease with heart failure and stage 1 through stage 4 chronic kidney disease, or unspecified chronic kidney disease (principal); I50.33 Acute on chronic diastolic (congestive) heart failure; N18.4 Chronic kidney disease, stage 4 (severe); I48.20 Chronic atrial fibrillation, unspecified; F03.90 Unspecified dementia, unspecified severity, without behavioral disturbance, psychotic disturbance, mood disturbance, and anxiety; E11.22 Type 2 diabetes mellitus with diabetic chronic kidney disease; J44.9 Chronic obstructive pulmonary disease, unspecified; I27.20 Pulmonary hypertension, unspecified; D64.9 Anemia, unspecified; E78.5 Hyperlipidemia, unspecified
CPT/HCPCS: 36415; 71045-TC-FY; 71250-TC; 80048; 80053; 80061; 82272; 82550; 82553; 82728; 82962; 83540; 83550; 83735; 83880; 84100; 84484; 85025; 85610; 85730; 93005; 93010; 94640; 99285-25; C9803; J1756; U0003; U0005

== ENCOUNTER 2021-08-26 18:40 | Inpatient (IN) | payer OTHER ==
[2021-08-26] MEDS ORDERED: ASPIRIN 81 MG CHEWABLE TABLETS PO ONE (19:55)
[2021-08-26] MEDS ORDERED: ASPIRIN 81 MG CHEWABLE TABLETS ONE (20:08)
[2021-08-26] MEDS ORDERED: ALBUTEROL SO4 2.5/IPRATROPIUM 0.5 INH SOL 3 ML VIAL.NEB. NEB ONE ×2 (20:12)
[2021-08-26] MEDS ORDERED: ALBUTEROL SO4 0.083% IH SOL 2.5 MG/3 ML VIAL.NEB. NEB ONE (20:13)
[2021-08-26 20:17] LABS: BASO % 0.8 % (0-2.0); EOS % 1.8 % (0-4.5); HEMATOCRIT 34.3 % (35.4-49); HEMOGLOBIN 11.2 GM/dL (11.7-16.9); MCH 32.6 pg (25.7-33.7); MCHC 32.5 g/dl (32.0-35.9); MEAN CELL VOLUME 100.2 fl (80-96); MEAN PLT VOLUME 8.5 fl (7.5-11.1); MONO % 11.2 % (3.8-10.2); NEUT % 80.2 % (42.8-82.8); PLATELET COUNT 148 10^3/uL (134-434); RBC 3.42 M/mm3 (4.00-5.60); RDW 18.6 % (11.9-15.9); WHITE BLOOD COUNT 8.8 K/mm3 (4.0-10.0)
[2021-08-26 20:24] LABS: INR 1.52 (0.83-1.09); PROTHROMBIN TIME (PATIENT) 18.8 SEC (9.7-13.0)
[2021-08-26 20:26] LABS: ACTIVATED PTT 30.8 SECONDS (25.2-36.5)
[2021-08-26 20:35] LABS: CHLORIDE 116 mmol/L (98-107); SODIUM 143 mmol/L (136-145)
[2021-08-26 20:37] LABS: GLUCOSE,RANDOM 120 mg/dL (74-106)
[2021-08-26 20:38] LABS: ALBUMIN 3.2 g/dl (3.4-5.0); CO2 19 mmol/L (21-32); MAGNESIUM 2.5 mg/dL (1.8-2.4)
[2021-08-26] MEDS ORDERED: FUROSEMIDE 100 MG/10 ML INJECTABLE VIAL IVPB ONE (20:38)
[2021-08-26 20:41] LABS: CREATININE 2.7 mg/dL (0.55-1.3); SGOT/AST 34 U/L (15-37); SGPT/ALT 46 U/L (13-61)
[2021-08-26 20:42] LABS: BILIRUBIN,TOTAL 0.5 mg/dL (0.2-1); TOT PROT 6.8 g/dl (6.4-8.2)
[2021-08-26 20:43] LABS: ALK PHOS 207 U/L (45-117)
[2021-08-26 20:46] LABS: N-TERMINAL BNP 26018.9 pg/ml (5-450)
[2021-08-26 20:47] LABS: ANION GAP 8 MMOL/L (8-16)
[2021-08-26] MEDS ORDERED: FUROSEMIDE 40 MG/4 ML INJECTABLE VIAL ONE (20:49)
[2021-08-26] MEDS ORDERED: INSULIN REGULAR HUMAN 100 UNITS/ML *VIAL IVPUSH ONE (20:51)
[2021-08-26] MEDS ORDERED: DEXTROSE 50%-WATER - 25 GM/50 ML VIAL IVPUSH ONE (20:54)
[2021-08-26] MEDS ORDERED: CALCIUM GLUCONATE 10% - 1,000 MG/10 ML VIAL IVPB ONE (20:55)
[2021-08-26] MEDS ORDERED: CALCIUM GLUCONATE 10% - 1,000 MG/10 ML VIAL ONE (21:05)
[2021-08-26] MEDS ORDERED: DEXTROSE 50%-WATER - 25 GM/50 ML VIAL ONE (21:06)
[2021-08-26 21:13] LABS: ARTERIAL BLD GAS O2 SATURATION 98.6 % (95-98); ARTERIAL BLOOD GAS BASE EXCESS -8.8 mmol/L (-2-2); ARTERIAL BLOOD GAS PO2 128.3 mmHg (80-100)
[2021-08-26 21:14] LABS: ALLENS TEST POSITIVE
[2021-08-26 21:36] LABS: LACTIC ACID 2.6 mmol/L (0.4-2.0)
[2021-08-26] MEDS ORDERED: VANCOMYCIN 1 GM in D5W (PRE-DOCKED) 1,000 MG/250 ML IVPB ONE (22:33)
[2021-08-26] MEDS ORDERED: PIPERACILLIN/TAZOB 3.375 GM 3.375 GM in DEXTROSE 5%-WATER - 50 ML IVPB ONE (22:34)
[2021-08-26] MEDS ORDERED: PIPERACILLIN/TAZOB 3.375 GM 3.375 GM/50 ML BAG IVPB ONE (22:52)
[2021-08-26] MEDS ORDERED: VANCOMYCIN 1 GRAM (PRE-DOCKED) 1,000 MG/250 ML BAG IVPB ONE (22:53)
[2021-08-27] MEDS ORDERED: DEXTROSE 50%-WATER - 25 GM/50 ML VIAL IVPUSH ONE (01:26)
[2021-08-27] MEDS ORDERED: CALCIUM GLUCONATE 10% - 1,000 MG/10 ML VIAL IVPB ONE (01:26)
[2021-08-27] MEDS ORDERED: INSULIN REGULAR HUMAN 100 UNITS/ML *VIAL IVPUSH ONE (01:26)
[2021-08-27] MEDS ORDERED: CALCIUM GLUCONATE 10% - 1,000 MG/10 ML VIAL ONE (01:37)
[2021-08-27] MEDS ORDERED: DEXTROSE 50%-WATER - 25 GM/50 ML VIAL ONE (01:37)
[2021-08-27 05:10] VITALS: BMI 23.7
[2021-08-27 07:52] LABS: BLOOD UREA NITROGEN 70.4 mg/dL (7-18); CALCIUM 9.6 mg/dL (8.5-10.1)
[2021-08-27 07:56] LABS: CREATININE 2.5 mg/dL (0.55-1.3)
[2021-08-27] MEDS ORDERED: PIPERACILLIN/TAZOB 4.5 GM 4.5 GM in DEXTROSE 5%-WATER 100 ML IVPB SCH (08:00)
[2021-08-27 08:01] LABS: LACTIC ACID 3.5 mmol/L (0.4-2.0)
[2021-08-27 08:03] LABS: BASO % 0.6 % (0-2.0); EOS % 2.6 % (0-4.5); HEMATOCRIT 34.6 % (35.4-49); HEMOGLOBIN 11.2 GM/dL (11.7-16.9); MCH 32.6 pg (25.7-33.7); MCHC 32.2 g/dl (32.0-35.9); MEAN CELL VOLUME 101.4 fl (80-96); MEAN PLT VOLUME 8.9 fl (7.5-11.1); NEUT % 79.8 % (42.8-82.8); PLATELET COUNT 125 10^3/uL (134-434); RBC 3.42 M/mm3 (4.00-5.60); WHITE BLOOD COUNT 9.1 K/mm3 (4.0-10.0)
[2021-08-27] MEDS ORDERED: ACETAMINOPHEN 325 MG TABLET (FP) PO PRN (08:12)
[2021-08-27] MEDS ORDERED: FUROSEMIDE 40 MG TABLET (FP) PO SCH (10:00)
[2021-08-27] MEDS: ALBUTEROL SO4 2.5/IPRATROPIUM 0.5 INH SOL 3 ML VIAL.NEB. NEB SCH ×4 (10:09→20:03)
[2021-08-27] MEDS ORDERED: DEXTROSE 5%-WATER 100 ML IVPB ONE (10:27)
[2021-08-27] MEDS ORDERED: PIPERACILLIN/TAZOBACTAM 4.5 GM VIAL IVPB ONE (10:27)
[2021-08-27] MEDS: PIPERACILLIN/TAZOB 4.5 GM 4.5 GM in DEXTROSE 5%-WATER 100 ML IVPB SCH ×4 (10:30→16:21)
[2021-08-27] MEDS: metoPROLOL SUCCINATE 25 MG TAB.SR.24H (FP) PO SCH (11:10)
[2021-08-27] MEDS: ASPIRIN 81 MG CHEWABLE TABLETS PO SCH (11:11)
[2021-08-27] MEDS: MULTIVITAMINS (DAILY MVI) TABLET (FP) PO SCH (11:11)
[2021-08-27] MEDS: FAMOTIDINE 10 MG TABLET PO SCH (11:11)
[2021-08-27] MEDS: ISOSORBIDE MONONITRATE 30 MG TAB.SR.24H (FP) PO SCH (11:11)
[2021-08-27] MEDS: hydrALAZINE HCL 25 MG TABLET (FP) PO SCH ×2 (11:11→21:41)
[2021-08-27] MEDS: MEMANTINE HCL 10 MG TABLET (FP) PO SCH ×2 (11:11→21:41)
[2021-08-27] MEDS: APIXABAN 2.5 MG TABLET PO SCH ×2 (11:11→21:41)
[2021-08-27] MEDS: ALLOPURINOL 100 MG TABLET (FP) PO SCH (11:11)
[2021-08-27] MEDS: METOLAZONE 2.5 MG TABLET (FP) PO SCH (11:12)
[2021-08-27] MEDS: CHOLECALCIFEROL (VIT D3) 1,000 UNIT (25 MCG) TABLET PO SCH (11:12)
[2021-08-27] MEDS: FUROSEMIDE 40 MG/4 ML INJECTABLE VIAL IVPUSH SCH (12:52)
[2021-08-27] MEDS ORDERED: PIPERACILLIN/TAZOBACTAM 2.25 GM VIAL IVPB ONE (17:25)
[2021-08-27] MEDS ORDERED: DEXTROSE 5%-WATER - 50 ML IVPB ONE (17:25)
[2021-08-27] MEDS: PIPERACILLIN/TAZOB 2.25 GM 2.25 GM in DEXTROSE 5%-WATER - 50 ML IVPB SCH (17:50)
[2021-08-27] MEDS ORDERED: PIPERACILLIN/TAZOB 3.375 GM 3.375 GM in DEXTROSE 5%-WATER - 50 ML IVPB SCH (18:00)
[2021-08-28] MEDS ORDERED: VANCOMYCIN 1 GM in D5W (PRE-DOCKED) 1,000 MG/250 ML IVPB SCH
[2021-08-28] MEDS ORDERED: VANCOMYCIN 1 GRAM (PRE-DOCKED) 1,000 MG/250 ML BAG IVPB ONE
[2021-08-28] MEDS ORDERED: PIPERACILLIN/TAZOBACTAM 2.25 GM VIAL IVPB ONE ×4 (01:22→23:56)
[2021-08-28] MEDS ORDERED: DEXTROSE 5%-WATER - 50 ML IVPB ONE ×4 (01:22→23:58)
[2021-08-28] MEDS: PIPERACILLIN/TAZOB 2.25 GM 2.25 GM in DEXTROSE 5%-WATER - 50 ML IVPB SCH ×3 (02:17→18:42)
[2021-08-28 06:54] LABS: EOS % 3.8 % (0-4.5); HEMATOCRIT 32.5 % (35.4-49); HEMOGLOBIN 10.7 GM/dL (11.7-16.9); LYMPH % 5.6 % (8-40); MCH 32.8 pg (25.7-33.7); MCHC 32.8 g/dl (32.0-35.9); MEAN CELL VOLUME 99.9 fl (80-96); MEAN PLT VOLUME 8.4 fl (7.5-11.1); MONO % 9.8 % (3.8-10.2); NEUT % 79.8 % (42.8-82.8); PLATELET COUNT 124 10^3/uL (134-434); RBC 3.26 M/mm3 (4.00-5.60); RDW 18.5 % (11.9-15.9); WHITE BLOOD COUNT 7.6 K/mm3 (4.0-10.0)
[2021-08-28 07:05] LABS: CALCIUM 8.9 mg/dL (8.5-10.1)
[2021-08-28 07:06] LABS: BLOOD UREA NITROGEN 77.4 mg/dL (7-18); MAGNESIUM 2.3 mg/dL (1.8-2.4)
[2021-08-28 07:09] LABS: CREATININE 2.8 mg/dL (0.55-1.3)
[2021-08-28 07:10] LABS: BILIRUBIN,TOTAL 1.1 mg/dL (0.2-1)
[2021-08-28 07:11] LABS: LACTIC ACID 2.1 mmol/L (0.4-2.0); TOT PROT 6.2 g/dl (6.4-8.2)
[2021-08-28 07:33] LABS: PHOSPHOROUS 4.9 mg/dL (2.5-4.9)
[2021-08-28] MEDS: ALBUTEROL SO4 2.5/IPRATROPIUM 0.5 INH SOL 3 ML VIAL.NEB. NEB SCH ×4 (07:50→20:30)
[2021-08-28] MEDS ORDERED: PT OWN MED DRAWER 7, Y5N ONE (09:32)
[2021-08-28] MEDS: METOLAZONE 2.5 MG TABLET (FP) PO SCH (09:38)
[2021-08-28] MEDS: ALLOPURINOL 100 MG TABLET (FP) PO SCH (10:28)
[2021-08-28] MEDS: MEMANTINE HCL 10 MG TABLET (FP) PO SCH ×2 (10:28→21:56)
[2021-08-28] MEDS: MULTIVITAMINS (DAILY MVI) TABLET (FP) PO SCH (10:28)
[2021-08-28] MEDS: CHOLECALCIFEROL (VIT D3) 1,000 UNIT (25 MCG) TABLET PO SCH (10:28)
[2021-08-28] MEDS: metoPROLOL SUCCINATE 25 MG TAB.SR.24H (FP) PO SCH (10:28)
[2021-08-28] MEDS: APIXABAN 2.5 MG TABLET PO SCH ×2 (10:28→21:56)
[2021-08-28] MEDS: FAMOTIDINE 10 MG TABLET PO SCH (10:28)
[2021-08-28] MEDS: ISOSORBIDE MONONITRATE 30 MG TAB.SR.24H (FP) PO SCH (10:29)
[2021-08-28] MEDS: ASPIRIN 81 MG CHEWABLE TABLETS PO SCH (10:29)
[2021-08-28] MEDS: hydrALAZINE HCL 25 MG TABLET (FP) PO SCH ×2 (10:29→21:56)
[2021-08-28] MEDS: FUROSEMIDE 40 MG/4 ML INJECTABLE VIAL IVPUSH SCH (10:29)
[2021-08-28 23:41] LABS: URINE APPEARANCE CLEAR; URINE BILIRUBIN NEGATIVE (NEGATIVE); URINE COLOR YELLOW; URINE GLUCOSE (UA) NEGATIVE (NEGATIVE); URINE KETONE NEGATIVE (NEGATIVE); URINE LEUK ESTERASE NEGATIVE (NEGATIVE); URINE NITRITE NEGATIVE (NEGATIVE); URINE PROTEIN NEGATIVE (NEGATIVE); URINE UROBILINOGEN 0.2 mg/dL (0.2-1.0)
[2021-08-29] MEDS: PIPERACILLIN/TAZOB 2.25 GM 2.25 GM in DEXTROSE 5%-WATER - 50 ML IVPB SCH ×3 (02:16→17:30)
[2021-08-29 07:33] LABS: HEMATOCRIT 33.7 % (35.4-49); HEMOGLOBIN 11.1 GM/dL (11.7-16.9); MCHC 32.8 g/dl (32.0-35.9); MEAN CELL VOLUME 97.4 fl (80-96); MEAN PLT VOLUME 7.7 fl (7.5-11.1); PLATELET COUNT 112 10^3/uL (134-434); RBC 3.46 M/mm3 (4.00-5.60); RDW 18.2 % (11.9-15.9); WHITE BLOOD COUNT 6.6 K/mm3 (4.0-10.0)
[2021-08-29] MEDS: ALBUTEROL SO4 2.5/IPRATROPIUM 0.5 INH SOL 3 ML VIAL.NEB. NEB SCH ×4 (07:50→20:26)
[2021-08-29 07:54] LABS: BLOOD UREA NITROGEN 65.6 mg/dL (7-18); CALCIUM 9.3 mg/dL (8.5-10.1); MAGNESIUM 2.3 mg/dL (1.8-2.4)
[2021-08-29 07:57] LABS: CREATININE 2.9 mg/dL (0.55-1.3); PHOSPHOROUS 4.2 mg/dL (2.5-4.9)
[2021-08-29 07:58] LABS: TOT PROT 6.4 g/dl (6.4-8.2)
[2021-08-29] MEDS ORDERED: PIPERACILLIN/TAZOBACTAM 2.25 GM VIAL IVPB ONE ×2 (08:03→16:14)
[2021-08-29] MEDS ORDERED: DEXTROSE 5%-WATER - 50 ML IVPB ONE ×2 (08:03→16:16)
[2021-08-29] MEDS ORDERED: POTASSIUM CHLORIDE TABS 10 MEQ TABLET.ER (FP) PO ONE (09:16)
[2021-08-29] MEDS: ALLOPURINOL 100 MG TABLET (FP) PO SCH (12:13)
[2021-08-29] MEDS: metoPROLOL SUCCINATE 25 MG TAB.SR.24H (FP) PO SCH (12:13)
[2021-08-29] MEDS: APIXABAN 2.5 MG TABLET PO SCH ×2 (12:13→22:37)
[2021-08-29] MEDS: MEMANTINE HCL 10 MG TABLET (FP) PO SCH ×2 (12:14→22:38)
[2021-08-29] MEDS: FAMOTIDINE 10 MG TABLET PO SCH (12:14)
[2021-08-29] MEDS: hydrALAZINE HCL 25 MG TABLET (FP) PO SCH ×2 (12:14→22:37)
[2021-08-29] MEDS: MULTIVITAMINS (DAILY MVI) TABLET (FP) PO SCH (12:14)
[2021-08-29] MEDS: CHOLECALCIFEROL (VIT D3) 1,000 UNIT (25 MCG) TABLET PO SCH (12:14)
[2021-08-29] MEDS: FUROSEMIDE 40 MG/4 ML INJECTABLE VIAL IVPUSH SCH (12:14)
[2021-08-29] MEDS: ISOSORBIDE MONONITRATE 30 MG TAB.SR.24H (FP) PO SCH (12:14)
[2021-08-29] MEDS: ASPIRIN 81 MG CHEWABLE TABLETS PO SCH (12:14)
[2021-08-29] MEDS ORDERED: FLU VACC QS2021-22(6MOS UP)/PF 60 MCG/0.5 ML SYRINGE IM ONE (22:00)
[2021-08-30] MEDS ORDERED: PIPERACILLIN/TAZOBACTAM 2.25 GM VIAL IVPB ONE ×2 (02:39→08:45)
[2021-08-30] MEDS ORDERED: DEXTROSE 5%-WATER - 50 ML IVPB ONE ×2 (02:40→08:45)
[2021-08-30] MEDS: PIPERACILLIN/TAZOB 2.25 GM 2.25 GM in DEXTROSE 5%-WATER - 50 ML IVPB SCH ×2 (02:51→10:14)
[2021-08-30 08:33] LABS: BASO % 0.9 % (0-2.0); EOS % 5.1 % (0-4.5); HEMATOCRIT 36.5 % (35.4-49); HEMOGLOBIN 11.9 GM/dL (11.7-16.9); LYMPH % 8.3 % (8-40); MCH 31.8 pg (25.7-33.7); MCHC 32.6 g/dl (32.0-35.9); MEAN CELL VOLUME 97.6 fl (80-96); MEAN PLT VOLUME 8.1 fl (7.5-11.1); MONO % 12.2 % (3.8-10.2); NEUT % 73.5 % (42.8-82.8); PLATELET COUNT 114 10^3/uL (134-434); RBC 3.74 M/mm3 (4.00-5.60)
[2021-08-30] MEDS: ALBUTEROL SO4 2.5/IPRATROPIUM 0.5 INH SOL 3 ML VIAL.NEB. NEB SCH ×4 (08:38→20:51)
[2021-08-30 08:52] LABS: CALCIUM 8.8 mg/dL (8.5-10.1)
[2021-08-30 08:53] LABS: BLOOD UREA NITROGEN 55.8 mg/dL (7-18)
[2021-08-30 08:56] LABS: CREATININE 2.8 mg/dL (0.55-1.3)
[2021-08-30] MEDS: metoPROLOL SUCCINATE 25 MG TAB.SR.24H (FP) PO SCH (10:12)
[2021-08-30] MEDS: APIXABAN 2.5 MG TABLET PO SCH ×2 (10:12→22:17)
[2021-08-30] MEDS: ASPIRIN 81 MG CHEWABLE TABLETS PO SCH (10:13)
[2021-08-30] MEDS: MEMANTINE HCL 10 MG TABLET (FP) PO SCH ×2 (10:13→22:15)
[2021-08-30] MEDS: ALLOPURINOL 100 MG TABLET (FP) PO SCH (10:13)
[2021-08-30] MEDS: TORSEMIDE 20 MG TABLET (FP) PO SCH (10:13)
[2021-08-30] MEDS: MULTIVITAMINS (DAILY MVI) TABLET (FP) PO SCH (10:13)
[2021-08-30] MEDS: CHOLECALCIFEROL (VIT D3) 1,000 UNIT (25 MCG) TABLET PO SCH (10:13)
[2021-08-30] MEDS: hydrALAZINE HCL 25 MG TABLET (FP) PO SCH ×2 (10:13→22:13)
[2021-08-30] MEDS: POTASSIUM CHLORIDE TABS 20 MEQ TABLET.ER (FP) PO SCH (10:13)
[2021-08-30] MEDS: FAMOTIDINE 10 MG TABLET PO SCH (10:13)
[2021-08-30] MEDS: ISOSORBIDE MONONITRATE 30 MG TAB.SR.24H (FP) PO SCH (10:13)
[2021-08-30] MEDS ORDERED: POTASSIUM CHLORIDE TABS 20 MEQ TABLET.ER (FP) PO ONE (14:00)
[2021-08-30] MEDS ORDERED: PT OWN MED DRAWER 7, Y5N ONE (16:18)
[2021-08-30] MEDS: CEFUROXIME AXETIL 500 MG TABLET PO SCH (22:13)
[2021-08-31] MEDS: ALBUTEROL SO4 2.5/IPRATROPIUM 0.5 INH SOL 3 ML VIAL.NEB. NEB SCH ×4 (07:44→20:02)
[2021-08-31] MEDS: MEMANTINE HCL 10 MG TABLET (FP) PO SCH ×2 (10:21→22:13)
[2021-08-31] MEDS: APIXABAN 2.5 MG TABLET PO SCH ×2 (10:21→22:13)
[2021-08-31] MEDS: hydrALAZINE HCL 25 MG TABLET (FP) PO SCH ×2 (10:21→22:13)
[2021-08-31] MEDS: POTASSIUM CHLORIDE TABS 20 MEQ TABLET.ER (FP) PO SCH (10:21)
[2021-08-31] MEDS: CHOLECALCIFEROL (VIT D3) 1,000 UNIT (25 MCG) TABLET PO SCH (10:21)
[2021-08-31] MEDS: ISOSORBIDE MONONITRATE 30 MG TAB.SR.24H (FP) PO SCH (10:21)
[2021-08-31] MEDS: TORSEMIDE 20 MG TABLET (FP) PO SCH (10:21)
[2021-08-31] MEDS: MULTIVITAMINS (DAILY MVI) TABLET (FP) PO SCH (10:21)
[2021-08-31] MEDS: ALLOPURINOL 100 MG TABLET (FP) PO SCH (10:22)
[2021-08-31] MEDS: metoPROLOL SUCCINATE 25 MG TAB.SR.24H (FP) PO SCH (10:22)
[2021-08-31] MEDS: CEFUROXIME AXETIL 500 MG TABLET PO SCH ×2 (10:22→22:13)
[2021-08-31] MEDS: ASPIRIN 81 MG CHEWABLE TABLETS PO SCH (10:22)
[2021-08-31] MEDS: FAMOTIDINE 10 MG TABLET PO SCH (10:23)
[2021-08-31 13:34] LABS: CALCIUM 8.8 mg/dL (8.5-10.1)
[2021-08-31 13:35] LABS: MAGNESIUM 2.2 mg/dL (1.8-2.4)
[2021-08-31 13:38] LABS: CREATININE 2.7 mg/dL (0.55-1.3)
[2021-09-01 07:06] VITALS: TEMP 97.6
[2021-09-01] MEDS ORDERED: PT OWN MED DRAWER 7, Y5N ONE (09:11)
[2021-09-01] MEDS: CEFUROXIME AXETIL 500 MG TABLET PO SCH (10:30)
[2021-09-01] MEDS: metoPROLOL SUCCINATE 25 MG TAB.SR.24H (FP) PO SCH (10:31)
[2021-09-01] MEDS: FAMOTIDINE 10 MG TABLET PO SCH (10:31)
[2021-09-01] MEDS: TORSEMIDE 20 MG TABLET (FP) PO SCH (10:31)
[2021-09-01] MEDS: MEMANTINE HCL 10 MG TABLET (FP) PO SCH (10:31)
[2021-09-01] MEDS: hydrALAZINE HCL 25 MG TABLET (FP) PO SCH (10:31)
[2021-09-01] MEDS: CHOLECALCIFEROL (VIT D3) 1,000 UNIT (25 MCG) TABLET PO SCH (10:31)
[2021-09-01] MEDS: POTASSIUM CHLORIDE TABS 20 MEQ TABLET.ER (FP) PO SCH (10:31)
[2021-09-01] MEDS: APIXABAN 2.5 MG TABLET PO SCH (10:32)
[2021-09-01] MEDS: ASPIRIN 81 MG CHEWABLE TABLETS PO SCH (10:32)
[2021-09-01] MEDS: MULTIVITAMINS (DAILY MVI) TABLET (FP) PO SCH (10:32)
[2021-09-01] MEDS: ISOSORBIDE MONONITRATE 30 MG TAB.SR.24H (FP) PO SCH (10:32)
[2021-09-01] MEDS: ALLOPURINOL 100 MG TABLET (FP) PO SCH (10:33)
[2021-09-01 11:56] VITALS: BP 96/58; PULSE 70
== END 2021-09-01 14:57 | DRG 291 ==
LOC: JER 18:40 → JERBED 23:22 → J4W 08-27 03:52
PROVIDERS: ADMIT Family Medicine; ATTEND Family Medicine
DX: I13.0 Hypertensive heart and chronic kidney disease with heart failure and stage 1 through stage 4 chronic kidney disease, or unspecified chronic kidney disease (principal); I50.33 Acute on chronic diastolic (congestive) heart failure; J18.9 Pneumonia, unspecified organism; N18.4 Chronic kidney disease, stage 4 (severe); E87.2 Acidosis; I24.8 Other forms of acute ischemic heart disease; N17.9 Acute kidney failure, unspecified; I48.20 Chronic atrial fibrillation, unspecified; I48.91 Unspecified atrial fibrillation; F03.90 Unspecified dementia, unspecified severity, without behavioral disturbance, psychotic disturbance, mood disturbance, and anxiety; I27.20 Pulmonary hypertension, unspecified; J44.9 Chronic obstructive pulmonary disease, unspecified; E83.52 Hypercalcemia; E87.5 Hyperkalemia; R79.89 Other specified abnormal findings of blood chemistry; E87.6 Hypokalemia
CPT/HCPCS: 36415; 36600; 71045-TC-FY; 76775-TC; 80048; 80053; 81003; 82550; 82570; 82803; 82962; 83605; 83735; 83880; 84100; 84132; 84156; 84484; 84550; 85025; 85027; 85610; 85730; 87040; 87081; 87899; 90686; 93005; 93010; 94640; 99284-25; 99285-25; C9803; G0008; U0003; U0005

== ENCOUNTER 2021-09-20 12:23 | Inpatient (IN) | payer OTHER ==
[2021-09-20 14:03] LABS: EOS % 3.5 % (0-4.5); HEMATOCRIT 33.5 % (35.4-49); HEMOGLOBIN 11.1 GM/dL (11.7-16.9); LYMPH % 12.5 % (8-40); MCH 32.4 pg (25.7-33.7); MCHC 33.2 g/dl (32.0-35.9); MEAN CELL VOLUME 97.4 fl (80-96); MEAN PLT VOLUME 9.1 fl (7.5-11.1); PLATELET COUNT 119 10^3/uL (134-434); RBC 3.44 M/mm3 (4.00-5.60); RDW 18.5 % (11.9-15.9); WHITE BLOOD COUNT 7.5 K/mm3 (4.0-10.0)
[2021-09-20 14:09] LABS: CHLORIDE 112 mmol/L (98-107); SODIUM 146 mmol/L (136-145)
[2021-09-20 14:11] LABS: CALCIUM 9.6 mg/dL (8.5-10.1)
[2021-09-20 14:12] LABS: ANION GAP 9 MMOL/L (8-16); BLOOD UREA NITROGEN 73.1 mg/dL (7-18); CO2 26 mmol/L (21-32); GLUCOSE,RANDOM 74 mg/dL (74-106)
[2021-09-20 14:15] LABS: CREATININE 2.4 mg/dL (0.55-1.3); SGOT/AST 44 U/L (15-37); SGPT/ALT 31 U/L (13-61)
[2021-09-20 14:16] LABS: BILIRUBIN,TOTAL 0.7 mg/dL (0.2-1); TOT PROT 6.6 g/dl (6.4-8.2)
[2021-09-20 14:18] LABS: ALK PHOS 164 U/L (45-117)
[2021-09-20 14:21] LABS: ALBUMIN 2.8 g/dl (3.4-5.0)
[2021-09-20 15:44] LABS: URINE APPEARANCE CLEAR; URINE BILIRUBIN NEGATIVE (NEGATIVE); URINE COLOR YELLOW; URINE GLUCOSE (UA) NEGATIVE (NEGATIVE); URINE KETONE NEGATIVE (NEGATIVE); URINE LEUK ESTERASE NEGATIVE (NEGATIVE); URINE NITRITE NEGATIVE (NEGATIVE); URINE PROTEIN NEGATIVE (NEGATIVE); URINE UROBILINOGEN 0.2 mg/dL (0.2-1.0)
[2021-09-20] MEDS ORDERED: ACETAMINOPHEN 325 MG TABLET (FP) PO PRN (17:01)
[2021-09-20] MEDS: ALBUTEROL SO4 2.5/IPRATROPIUM 0.5 INH SOL 3 ML VIAL.NEB. NEB SCH (21:10)
[2021-09-20] MEDS ORDERED: ALBUTEROL SO4 2.5/IPRATROPIUM 0.5 INH SOL 3 ML VIAL.NEB. NEB ONE (21:45)
[2021-09-20] MEDS ORDERED: hydrALAZINE HCL 25 MG TABLET (FP) ONE (22:46)
[2021-09-20] MEDS: hydrALAZINE HCL 25 MG TABLET (FP) PO SCH (22:55)
[2021-09-20] MEDS: MEMANTINE HCL 10 MG TABLET (FP) PO SCH (22:55)
[2021-09-21 01:17] VITALS: BMI 21.8
[2021-09-21] MEDS: ALBUTEROL SO4 2.5/IPRATROPIUM 0.5 INH SOL 3 ML VIAL.NEB. NEB SCH ×4 (08:40→20:08)
[2021-09-21] MEDS: POTASSIUM CHLORIDE TABS 20 MEQ TABLET.ER (FP) PO SCH (09:22)
[2021-09-21] MEDS: hydrALAZINE HCL 25 MG TABLET (FP) PO SCH ×2 (09:23→22:21)
[2021-09-21] MEDS: ALLOPURINOL 100 MG TABLET (FP) PO SCH (09:23)
[2021-09-21] MEDS: ASPIRIN 81 MG CHEWABLE TABLETS PO SCH (09:23)
[2021-09-21] MEDS: ESCITALOPRAM OXALATE 10 MG TABLET PO SCH (09:23)
[2021-09-21] MEDS: metoPROLOL SUCCINATE 25 MG TAB.SR.24H (FP) PO SCH (09:23)
[2021-09-21] MEDS: ISOSORBIDE MONONITRATE 30 MG TAB.SR.24H (FP) PO SCH (09:23)
[2021-09-21] MEDS: APIXABAN 2.5 MG TABLET PO SCH ×2 (09:23→22:20)
[2021-09-21] MEDS: TORSEMIDE 20 MG TABLET (FP) PO SCH (09:23)
[2021-09-21] MEDS: MEMANTINE HCL 10 MG TABLET (FP) PO SCH ×2 (09:23→22:20)
[2021-09-21 10:24] LABS: BASO % 0.8 % (0-2.0); EOS % 2.9 % (0-4.5); HEMATOCRIT 37.5 % (35.4-49); HEMOGLOBIN 12.3 GM/dL (11.7-16.9); LYMPH % 16.4 % (8-40); MCH 32.4 pg (25.7-33.7); MCHC 32.8 g/dl (32.0-35.9); MEAN CELL VOLUME 98.9 fl (80-96); MONO % 7.2 % (3.8-10.2); NEUT % 72.7 % (42.8-82.8); PLATELET COUNT 127 10^3/uL (134-434); RBC 3.79 M/mm3 (4.00-5.60); RDW 18.8 % (11.9-15.9); WHITE BLOOD COUNT 7.2 K/mm3 (4.0-10.0)
[2021-09-21 10:42] LABS: CHLORIDE 110 mmol/L (98-107); SODIUM 145 mmol/L (136-145)
[2021-09-21 10:49] LABS: ANION GAP 11 MMOL/L (8-16); CO2 23 mmol/L (21-32); GLUCOSE,RANDOM 101 mg/dL (74-106); MAGNESIUM 2.1 mg/dL (1.8-2.4)
[2021-09-21 10:52] LABS: ALK PHOS 168 U/L (45-117); CREATININE 2.2 mg/dL (0.55-1.3); PHOSPHOROUS 3.6 mg/dL (2.5-4.9); SGOT/AST 44 U/L (15-37); SGPT/ALT 26 U/L (13-61)
[2021-09-21 10:53] LABS: BILIRUBIN,TOTAL 0.8 mg/dL (0.2-1)
[2021-09-22] MEDS: ALBUTEROL SO4 2.5/IPRATROPIUM 0.5 INH SOL 3 ML VIAL.NEB. NEB SCH ×4 (07:40→20:01)
[2021-09-22 07:51] LABS: BASO % 1.1 % (0-2.0); EOS % 3.2 % (0-4.5); HEMATOCRIT 33.3 % (35.4-49); HEMOGLOBIN 11.1 GM/dL (11.7-16.9); LYMPH % 7.6 % (8-40); MCH 32.8 pg (25.7-33.7); MCHC 33.4 g/dl (32.0-35.9); MEAN CELL VOLUME 98.1 fl (80-96); MEAN PLT VOLUME 9.2 fl (7.5-11.1); MONO % 8.3 % (3.8-10.2); NEUT % 79.8 % (42.8-82.8); PLATELET COUNT 106 10^3/uL (134-434); RDW 18.7 % (11.9-15.9); WHITE BLOOD COUNT 8.3 K/mm3 (4.0-10.0)
[2021-09-22 08:17] LABS: ALBUMIN 2.7 g/dl (3.4-5.0); BLOOD UREA NITROGEN 61.3 mg/dL (7-18)
[2021-09-22 08:19] LABS: BILIRUBIN,TOTAL 0.8 mg/dL (0.2-1); TOT PROT 6.3 g/dl (6.4-8.2)
[2021-09-22 08:20] LABS: CALCIUM 9.4 mg/dL (8.5-10.1); CREATININE 2.1 mg/dL (0.55-1.3)
[2021-09-22 08:45] LABS: MAGNESIUM 2.2 mg/dL (1.8-2.4)
[2021-09-22] MEDS: POTASSIUM CHLORIDE TABS 20 MEQ TABLET.ER (FP) PO SCH (09:19)
[2021-09-22] MEDS: ASPIRIN 81 MG CHEWABLE TABLETS PO SCH (09:19)
[2021-09-22] MEDS: MEMANTINE HCL 10 MG TABLET (FP) PO SCH ×2 (09:19→21:36)
[2021-09-22] MEDS: TORSEMIDE 20 MG TABLET (FP) PO SCH (09:20)
[2021-09-22] MEDS: metoPROLOL SUCCINATE 25 MG TAB.SR.24H (FP) PO SCH (09:20)
[2021-09-22] MEDS: ESCITALOPRAM OXALATE 10 MG TABLET PO SCH (09:20)
[2021-09-22] MEDS: APIXABAN 2.5 MG TABLET PO SCH ×2 (09:20→21:36)
[2021-09-22] MEDS: ALLOPURINOL 100 MG TABLET (FP) PO SCH (09:20)
[2021-09-22] MEDS: hydrALAZINE HCL 25 MG TABLET (FP) PO SCH ×2 (11:38→21:37)
[2021-09-22] MEDS: ISOSORBIDE MONONITRATE 30 MG TAB.SR.24H (FP) PO SCH (11:38)
[2021-09-23] MEDS: ALBUTEROL SO4 2.5/IPRATROPIUM 0.5 INH SOL 3 ML VIAL.NEB. NEB SCH ×4 (08:36→19:28)
[2021-09-23] MEDS: ISOSORBIDE MONONITRATE 30 MG TAB.SR.24H (FP) PO SCH (09:19)
[2021-09-23] MEDS: ASPIRIN 81 MG CHEWABLE TABLETS PO SCH (09:19)
[2021-09-23] MEDS: APIXABAN 2.5 MG TABLET PO SCH ×2 (09:19→21:12)
[2021-09-23] MEDS: MEMANTINE HCL 10 MG TABLET (FP) PO SCH ×2 (09:19→21:12)
[2021-09-23] MEDS: POTASSIUM CHLORIDE TABS 20 MEQ TABLET.ER (FP) PO SCH (09:19)
[2021-09-23] MEDS: metoPROLOL SUCCINATE 25 MG TAB.SR.24H (FP) PO SCH (09:20)
[2021-09-23] MEDS: ALLOPURINOL 100 MG TABLET (FP) PO SCH (09:20)
[2021-09-23] MEDS: ESCITALOPRAM OXALATE 10 MG TABLET PO SCH (09:20)
[2021-09-23] MEDS: TORSEMIDE 20 MG TABLET (FP) PO SCH (09:20)
[2021-09-23] MEDS ORDERED: QUEtiapine FUMARATE 25 MG TABLET PO SCH (22:00)
[2021-09-24] MEDS: ALBUTEROL SO4 2.5/IPRATROPIUM 0.5 INH SOL 3 ML VIAL.NEB. NEB SCH ×3 (07:45→15:45)
[2021-09-24] MEDS: POTASSIUM CHLORIDE TABS 20 MEQ TABLET.ER (FP) PO SCH (13:30)
[2021-09-24] MEDS: ALLOPURINOL 100 MG TABLET (FP) PO SCH (13:30)
[2021-09-24] MEDS: APIXABAN 2.5 MG TABLET PO SCH (13:30)
[2021-09-24] MEDS: metoPROLOL SUCCINATE 25 MG TAB.SR.24H (FP) PO SCH (13:30)
[2021-09-24] MEDS: ESCITALOPRAM OXALATE 10 MG TABLET PO SCH (13:30)
[2021-09-24] MEDS: TORSEMIDE 20 MG TABLET (FP) PO SCH (13:30)
[2021-09-24] MEDS: ASPIRIN 81 MG CHEWABLE TABLETS PO SCH (13:30)
[2021-09-24] MEDS: MEMANTINE HCL 10 MG TABLET (FP) PO SCH (13:30)
[2021-09-24] MEDS: ISOSORBIDE MONONITRATE 30 MG TAB.SR.24H (FP) PO SCH (13:30)
[2021-09-24 18:34] VITALS: TEMP 99.1
[2021-09-24 20:20] VITALS: BP 96/56; PULSE 56
== END 2021-09-24 20:10 | DRG 281 ==
LOC: JER 12:23 → JERBED 13:22 → J4S 23:07
PROVIDERS: ADMIT Family Medicine; ATTEND Family Medicine
DX: I21.4 Non-ST elevation (NSTEMI) myocardial infarction (principal); I13.0 Hypertensive heart and chronic kidney disease with heart failure and stage 1 through stage 4 chronic kidney disease, or unspecified chronic kidney disease; N18.4 Chronic kidney disease, stage 4 (severe); I50.32 Chronic diastolic (congestive) heart failure; I48.20 Chronic atrial fibrillation, unspecified; F02.81 Dementia in other diseases classified elsewhere, unspecified severity, with behavioral disturbance; R64 Cachexia; N17.9 Acute kidney failure, unspecified; J44.9 Chronic obstructive pulmonary disease, unspecified; E78.5 Hyperlipidemia, unspecified; I27.20 Pulmonary hypertension, unspecified; I48.91 Unspecified atrial fibrillation; R79.89 Other specified abnormal findings of blood chemistry; G30.9 Alzheimer's disease, unspecified; W18.30XA Fall on same level, unspecified, initial encounter; Y92.098 Other place in other non-institutional residence as the place of occurrence of the external cause; Z68.21 Body mass index [BMI] 21.0-21.9, adult
CPT/HCPCS: 36415; 70450-TC; 71045-TC-FY; 72125-TC; 72170-TC-FY; 73070-TC-LT-FY; 80053; 81003; 82550; 83735; 84100; 84484; 85025; 87086; 93005; 93010; 94640; 99285-25; C9803; U0003; U0005

== ENCOUNTER 2021-09-30 13:19 | Emergency (ER) | payer OTHER ==
[2021-09-30 14:43] VITALS: BMI 22.4
[2021-09-30 16:01] LABS: BASO % 0.6 % (0-2.0); HEMATOCRIT 35.4 % (35.4-49); HEMOGLOBIN 11.5 GM/dL (11.7-16.9); LYMPH % 12.2 % (8-40); MCH 32.1 pg (25.7-33.7); MCHC 32.5 g/dl (32.0-35.9); MEAN CELL VOLUME 98.6 fl (80-96); MEAN PLT VOLUME 8.5 fl (7.5-11.1); MONO % 6.3 % (3.8-10.2); NEUT % 78.9 % (42.8-82.8); PLATELET COUNT 126 10^3/uL (134-434); RBC 3.59 M/mm3 (4.00-5.60); RDW 17.8 % (11.9-15.9); WHITE BLOOD COUNT 6.8 K/mm3 (4.0-10.0)
[2021-09-30 16:15] LABS: INR 1.25 (0.83-1.09); PROTHROMBIN TIME (PATIENT) 14.6 SEC (9.7-13.0)
[2021-09-30 16:18] LABS: ACTIVATED PTT 31.5 SECONDS (25.2-36.5)
[2021-09-30 16:29] LABS: CALCIUM 9.7 mg/dL (8.5-10.1)
[2021-09-30 16:30] LABS: ALBUMIN 2.8 g/dl (3.4-5.0); MAGNESIUM 2.3 mg/dL (1.8-2.4)
[2021-09-30 16:34] LABS: BILIRUBIN,TOTAL 0.7 mg/dL (0.2-1); TOT PROT 6.8 g/dl (6.4-8.2)
[2021-09-30 18:33] LABS: EPI CELLS 36 /uL (0-25.1); HYALINE CASTS 65 /uL (0-3.1); PH,URINE 8.5 (5.0-8.0); URINE APPEARANCE TURBID; URINE BACTERIA 2661 /uL (0-1359); URINE BILIRUBIN NEGATIVE (NEGATIVE); URINE COLOR YELLOW; URINE GLUCOSE (UA) NEGATIVE (NEGATIVE); URINE KETONE TRACE (NEGATIVE); URINE LEUK ESTERASE 3+ (NEGATIVE); URINE NITRITE POSITIVE (NEGATIVE); URINE PROTEIN 2+ (NEGATIVE); URINE WBC 28141 /uL (0-25.8)
[2021-09-30] MEDS ORDERED: CEFTRIAXONE 1 GM in DEXTROSE 5%-WATER - 50 ML IVPB ONE (19:14)
[2021-09-30] MEDS ORDERED: CEFTRIAXONE 1 GM/50 ML BAG ONE (19:55)
[2021-09-30 21:38] LABS: URINE RBC 416 /uL (0-23.9)
[2021-10-01 00:49] VITALS: BP 119/65; PULSE 72; TEMP 97.7
[2021-10-01] MEDS ORDERED: CEPHALEXIN MONOHYDRATE 500 MG CAPSULE (UD) PO ONE (06:00)
== END 2021-10-01 01:48 ==
LOC: JER 13:19
DX: N39.0 Urinary tract infection, site not specified (principal); W19.XXXA Unspecified fall, initial encounter; Y92.9 Unspecified place or not applicable
CPT/HCPCS: 36415; 70450-TC; 71045-TC-FY; 72125-TC; 72170-TC-FY; 74177-TC; 80053; 81003; 82550; 83690; 83735; 84484; 85025; 85610; 85730; 86850; 86900; 86901; 87086; 87186; 93005; 93010; 99285-25; C9803; Q9967; U0003; U0005

== ENCOUNTER 2021-11-03 18:31 | Inpatient (IN) | payer OTHER ==
[2021-11-03 18:58] VITALS: BMI 20.1
[2021-11-03 20:00] LABS: BASO % 0.8 % (0-2.0); HEMATOCRIT 28.5 % (35.4-49); HEMOGLOBIN 9.4 GM/dL (11.7-16.9); LYMPH % 8.1 % (8-40); MCH 32.7 pg (25.7-33.7); MCHC 33.1 g/dl (32.0-35.9); MEAN CELL VOLUME 98.7 fl (80-96); MEAN PLT VOLUME 7.4 fl (7.5-11.1); MONO % 8.4 % (3.8-10.2); NEUT % 80.7 % (42.8-82.8); PLATELET COUNT 137 10^3/uL (134-434); RBC 2.89 M/mm3 (4.00-5.60); RDW 18.1 % (11.9-15.9); WHITE BLOOD COUNT 6.4 K/mm3 (4.0-10.0)
[2021-11-03 20:09] LABS: INR 1.21 (0.83-1.09); PROTHROMBIN TIME (PATIENT) 13.6 SEC (9.7-13.0)
[2021-11-03 20:12] LABS: ACTIVATED PTT 24.6 SECONDS (25.2-36.5)
[2021-11-03 20:20] LABS: ALBUMIN 2.6 g/dl (3.4-5.0); BLOOD UREA NITROGEN 18.3 mg/dL (7-18); CALCIUM 8.7 mg/dL (8.5-10.1)
[2021-11-03 20:24] LABS: CREATININE 1.4 mg/dL (0.55-1.3)
[2021-11-03 20:25] LABS: BILIRUBIN,TOTAL 0.4 mg/dL (0.2-1); TOT PROT 5.8 g/dl (6.4-8.2)
[2021-11-03 23:09] LABS: N-TERMINAL BNP 19091.3 pg/ml (5-450)
[2021-11-04 01:55] LABS: EPI CELLS 20 /uL (0-25.1); HYALINE CASTS 5 /uL (0-3.1); URINE APPEARANCE CLEAR; URINE BACTERIA 24 /uL (0-1359); URINE BILIRUBIN NEGATIVE (NEGATIVE); URINE COLOR YELLOW; URINE GLUCOSE (UA) NEGATIVE (NEGATIVE); URINE KETONE TRACE (NEGATIVE); URINE LEUK ESTERASE NEGATIVE (NEGATIVE); URINE NITRITE NEGATIVE (NEGATIVE); URINE PROTEIN 1+ (NEGATIVE); URINE RBC 104 /uL (0-23.9); URINE UROBILINOGEN 0.2 mg/dL (0.2-1.0); URINE WBC 21 /uL (0-25.8)
[2021-11-04] MEDS ORDERED: FUROSEMIDE 40 MG/4 ML INJECTABLE VIAL IVPUSH ONE (02:01)
[2021-11-04] MEDS ORDERED: FUROSEMIDE 40 MG/4 ML INJECTABLE VIAL ONE ×2 (02:13→12:15)
[2021-11-04 08:49] LABS: BASO % 0.5 % (0-2.0); EOS % 1.1 % (0-4.5); HEMATOCRIT 31.1 % (35.4-49); HEMOGLOBIN 10.6 GM/dL (11.7-16.9); LYMPH % 8.3 % (8-40); MCH 33.9 pg (25.7-33.7); MEAN CELL VOLUME 99.7 fl (80-96); MEAN PLT VOLUME 7.7 fl (7.5-11.1); MONO % 7.8 % (3.8-10.2); NEUT % 82.3 % (42.8-82.8); PLATELET COUNT 138 10^3/uL (134-434); RBC 3.12 M/mm3 (4.00-5.60); RDW 17.8 % (11.9-15.9); WHITE BLOOD COUNT 8.5 K/mm3 (4.0-10.0)
[2021-11-04 09:05] LABS: GLUCOSE,RANDOM 90 mg/dL (74-106)
[2021-11-04 09:06] LABS: BLOOD UREA NITROGEN 17.2 mg/dL (7-18); CHLORIDE 110 mmol/L (98-107); CO2 21 mmol/L (21-32); CREATININE 1.3 mg/dL (0.55-1.3); SODIUM 142 mmol/L (136-145)
[2021-11-04 09:07] LABS: CALCIUM 9.1 mg/dL (8.5-10.1); MAGNESIUM 1.7 mg/dL (1.8-2.4)
[2021-11-04] MEDS ORDERED: ALLOPURINOL 100 MG TABLET (FP) PO SCH (10:00)
[2021-11-04] MEDS ORDERED: CHOLECALCIFEROL (VIT D3) 1,000 UNIT (25 MCG) TABLET PO SCH (10:00)
[2021-11-04] MEDS ORDERED: ASPIRIN 81 MG CHEWABLE TABLETS PO SCH (10:00)
[2021-11-04] MEDS ORDERED: ISOSORBIDE MONONITRATE 30 MG TAB.SR.24H (FP) PO SCH (10:00)
[2021-11-04] MEDS ORDERED: TORSEMIDE 20 MG TABLET (FP) PO SCH (10:00)
[2021-11-04] MEDS ORDERED: metoPROLOL SUCCINATE 25 MG TAB.SR.24H (FP) PO SCH (10:00)
[2021-11-04] MEDS ORDERED: FAMOTIDINE 10 MG TABLET PO SCH (10:00)
[2021-11-04] MEDS ORDERED: MEMANTINE HCL 10 MG TABLET (FP) PO SCH (10:00)
[2021-11-04] MEDS ORDERED: POTASSIUM CHLORIDE TABS 20 MEQ TABLET.ER (FP) PO SCH (10:00)
[2021-11-04] MEDS ORDERED: ESCITALOPRAM OXALATE 10 MG TABLET PO SCH (10:00)
[2021-11-04] MEDS ORDERED: MULTIVITAMINS (DAILY MVI) TABLET (FP) PO SCH (10:00)
[2021-11-04] MEDS ORDERED: MULTIVITAMINS (DAILY MVI) TABLET (FP) ONE (12:13)
[2021-11-04] MEDS ORDERED: FAMOTIDINE 10 MG TABLET ONE (12:13)
[2021-11-04] MEDS ORDERED: ASPIRIN 81 MG CHEWABLE TABLETS ONE (12:13)
[2021-11-04] MEDS ORDERED: ESCITALOPRAM OXALATE 10 MG TABLET ONE (12:14)
[2021-11-04] MEDS ORDERED: PT OWN MED DRAWER 7, Y5N ONE (12:14)
[2021-11-04] MEDS ORDERED: ISOSORBIDE MONONITRATE 60 MG TAB.SR.24H (FP) PO ONE (12:14)
[2021-11-04] MEDS ORDERED: POTASSIUM CHLORIDE TABS 20 MEQ TABLET.ER (FP) PO ONE (12:14)
[2021-11-04] MEDS ORDERED: TOPIRAMATE 25 MG TABLET ONE (12:14)
[2021-11-04 15:14] VITALS: TEMP 97.9
[2021-11-04 16:49] VITALS: BP 119/63; PULSE 86
== END 2021-11-04 17:02 | DRG 291 ==
LOC: JER 18:31 → JERBED 21:55
PROVIDERS: ATTEND Family Medicine
DX: I13.0 Hypertensive heart and chronic kidney disease with heart failure and stage 1 through stage 4 chronic kidney disease, or unspecified chronic kidney disease (principal); I50.33 Acute on chronic diastolic (congestive) heart failure; N18.4 Chronic kidney disease, stage 4 (severe); R55 Syncope and collapse; F03.90 Unspecified dementia, unspecified severity, without behavioral disturbance, psychotic disturbance, mood disturbance, and anxiety; I48.91 Unspecified atrial fibrillation; J44.9 Chronic obstructive pulmonary disease, unspecified; Z79.01 Long term (current) use of anticoagulants; I27.20 Pulmonary hypertension, unspecified; I45.10 Unspecified right bundle-branch block; R79.89 Other specified abnormal findings of blood chemistry
CPT/HCPCS: 36415; 70450-TC; 71045-TC-FY; 72125-TC; 80048; 80053; 81003; 82550; 83735; 83880; 84484; 85025; 85610; 85730; 86850; 86900; 86901; 87086; 87804; 93005; 93010; 99285-25; C9803; U0003; U0005